=== PATIENT | female | born 1945 | race Caucasian/White ===

== ENCOUNTER 2017-07-27 16:06 | Observation (INO) | payer MEDICARE ==
[~2017-07-27] VITALS: Ht 152.4 cm; Wt 58.6 kg
[~2017-07-27 16:06] MED LIST: AMLODIPINE BESYL5 MG PO; BENADRYL25 M1 PO; CALCIUM + D 601 EAC1; CEFUROXIME500 MG PO; FISH OIL 1,0001 EAC1 PO; LOSARTAN POTASS50 MG PO; MACROBID 100 M100 MG PO; MULTIVITAMIN; NAPROXEN500 MG PO; PEPCID AC10 MG PO; PLAVIX75 MG PO; PROBIOTIC & AC1 EACH PO; TIZANIDINE HCL4 MG PO; TYLENOL EXTRA500 MG PO; Vit D PO; Z XANAX; ZANTAC150 MG PO
[2017-07-27] MEDS ORDERED: ASPIRIN 81 MG CHEW TAB PO ONE (16:30)
--- NOTE | 2017-07-27 17:58 | Diagnostic Imaging Report ---
Exam: Head CT without contrast History: Dizziness Comparison studies: CT brain from 01/19/2016 Technique: Axial images were obtained from the skull base to the vertex. Coronal and sagittal images reconstructed from the axial data. Intravenous contrast: None Findings: Scalp: Nonspecific unchanged punctate superficial radiopaque densities in left frontal scalp may represent calcification or debris.. Bones: No fractures, blastic or lytic lesions. Brain sulci: Mildly prominent. Ventricles: Mild compensatory dilatation. No hydrocephalus. Extra-axial spaces: No masses, no fluid collection. Parenchyma: Subtle hypodensities in the bilateral periventricular and subcortical white matter are small vessel ischemic changes. No masses, hemorrhage, acute or chronic vascular insults. Sellar/suprasellar region: No abnormalities. Craniocervical junction: Patent foramen magnum. No Chiari one malformation. Incidental findings: Mild carotid siphon atherosclerotic calcifications. IMPRESSION: 1. No acute intracranial abnormality. No change since CT brain from 01/19/2016. 2. Mild generalized age-related intracranial volume loss. 3. Mild chronic small vessel ischemic changes. Preliminary report was provided by neuroradiology fellow, Dr.Thach Lynn MD on 07/27/2017 5:57 PM. I have reviewed the study and agree with the findings in the preliminary report. Signed by: Dr. Tammi Flores M.D. on 07/27/2017 7:31 PM
--- NOTE | 2017-07-27 18:15 | Diagnostic Imaging Report ---
PROCEDURE: Frontal and lateral views of the chest. COMPARISON: DX, CHEST SINGLE (PORTABLE), 01/19/2016, 18:00. INDICATIONS: DIZZY, SYNCOPE FINDINGS: Lines/tubes: None. Lungs: 4 mm nodule projected on the right upper lobe. Left basilar subsegmental atelectasis. There is no evidence of pneumonia or pulmonary edema. Pleura: There is no pleural effusion or pneumothorax. Heart and mediastinum: The heart and the mediastinum are normal. Calcified right hilar lymph nodes. Bones: No acute bony abnormality. Mild spondylosis of the thoracic spine. IMPRESSION: 1. No acute thoracic abnormality. 2. 4 mm nodule in the right upper lobe may represent a granuloma. Toma Castillo M.D. Dictated by: Toma Castillo M.D. on 07/27/2017 at 18:23 Electronically approved by: Toma Castillo M.D. on 07/27/2017 at 18:23
[2017-07-27 18:49] LABS: BASOPHILS % 0.3 % (0.0-1.0); EOSINOPHILS % 0.3 % (0.0-6.0); HEMATOCRIT 41.4 % (34.2-44.1); HEMOGLOBIN 14.2 g/dL (12.0-16.0); LYMPHOCYTES # (AUTO) 1.8 (1.0-3.2); LYMPHOCYTES % 11.8 % (18.0-39.1); MEAN CORPUSCULAR HEMOGLOBIN 34.5 pg (28-32); MEAN CORPUSCULAR HGB CONC 34.3 g/dL (31-35); MEAN CORPUSCULAR VOLUME 100.7 fL (81-99); MONOCYTES # (AUTO) 1.4 (0.2-0.8); MONOCYTES % 9.2 % (4.4-11.3); NEUTROPHILS % 77.7 % (38.7-80.0); PLATELET COUNT 265 x10e3/uL (140-360); RED BLOOD COUNT 4.11 x10e6/uL (3.6-5.1); RED CELL DISTRIBUTION WIDTH 12.2 % (11.7-14.4)
[2017-07-27 18:50] LABS: BILIRUBIN,URINE NEGATIVE (NEGATIVE); KETONES,URINE NEGATIVE (NEGATIVE); LEUKOCYTE ESTERASE ,URINE TRACE (NEGATIVE); NITRITE,URINE NEGATIVE (NEGATIVE); PROTEIN,URINE DIPSTICK NEGATIVE (NEGATIVE); URINE UROBILINOGEN 0.2 mg/dL (0.2 - 1)
[2017-07-27 18:55] LABS: CLARITY,URINE SL CLOUDY (CLEAR); COLOR,URINE YELLOW (YELLOW)
[2017-07-27 18:57] LABS: INR 0.9; PROTHROMBIN TIME 12.6 seconds (11.9-14.5)
[2017-07-27 19:07] LABS: ALANINE AMINOTRANSFERASE 40 IU/L (0-55); ALBUMIN 4.1 g/dL (3.5-5.0); ALBUMIN/GLOBULIN RATIO 1.1 (0.8-2.0); ALKALINE PHOSPHATASE 70 IU/L (40-150); AMPHETAMINES SCREEN,URINE NEGATIVE (NEGATIVE); ANION GAP 16.5 mmol/L (8-16); BACTERIA,URINE FEW /HPF; BLOOD UREA NITROGEN 10 mg/dL (7-26); BUN/CREATININE RATIO 11 (6-25); CALCIUM 9.5 mg/dL (8.4-10.2); CARBON DIOXIDE 22 mmol/L (22-29); CHLORIDE 103 mmol/L (98-107); CREATINE KINASE 51 IU/L (29-168); EPITHELIAL CELLS,URINE FEW /LPF; EST GLOMERULAR FILTRATION RATE > 60 ML/MIN (60-); GLUCOSE 112 mg/dL (74-118); PHENCYCLIDINE SCREEN,URINE NEGATIVE (NEGATIVE); POTASSIUM 3.5 mmol/L (3.5-5.1); RBC,URINE 0-5 /HPF (0-5); SODIUM 138 mmol/L (136-145); WBC,URINE (MAN) 0-5 /HPF (0-5)
[2017-07-27 19:08] LABS: BENZODIAZEPINES SCREEN,URINE NEGATIVE (NEGATIVE)
[2017-07-27] MEDS ORDERED: SODIUM CHLORIDE 0.9% 1000ML 1,000 ML IV STA (19:57)
[2017-07-27] MEDS ORDERED: ONDANSETRON HCL INJ 2 MG/ML VIAL IV PRN (20:30)
[2017-07-27] MEDS: SODIUM CHLORIDE 0.9% 1000ML 1,000 ML IV SCH (20:44)
[2017-07-27] MEDS: FAMOTIDINE 20 MG/2 ML VIAL IV SCH (20:44)
[2017-07-27] MEDS ORDERED: CLONIDINE HCL 0.1 MG TAB PO PRN (21:00)
[2017-07-27 22:15] VITALS: BP 178/85
[2017-07-27 23:00] VITALS: BP 178/85
[2017-07-28] VITALS (8 sets, daily range): BP systolic 156–204; BP diastolic 68–92
[2017-07-28] MEDS: SODIUM CHLORIDE 0.9% 1000ML 1,000 ML IV SCH ×3 (01:54→20:30)
[2017-07-28] MEDS: ACETAMINOPHEN 325 MG TAB PO PRN ×3 (01:54→21:21)
[2017-07-28 02:45] LABS: CREATINE KINASE MB 2.1 ng/mL (0.00-5.00)
[2017-07-28 06:22] LABS: BASOPHILS % 0.4 % (0.0-1.0); EOSINOPHILS # (AUTO) 0.1 (0.0-0.4); EOSINOPHILS % 1.1 % (0.0-6.0); HEMATOCRIT 38.3 % (34.2-44.1); HEMOGLOBIN 12.9 g/dL (12.0-16.0); LYMPHOCYTES # (AUTO) 2.4 (1.0-3.2); LYMPHOCYTES % 29.6 % (18.0-39.1); MEAN CORPUSCULAR HEMOGLOBIN 34.3 pg (28-32); MEAN CORPUSCULAR HGB CONC 33.7 g/dL (31-35); MEAN CORPUSCULAR VOLUME 101.9 fL (81-99); MONOCYTES # (AUTO) 0.8 (0.2-0.8); MONOCYTES % 9.9 % (4.4-11.3); NEUTROPHILS # (AUTO) 4.8 (2.1-6.9); NEUTROPHILS % 58.6 % (38.7-80.0); PLATELET COUNT 238 x10e3/uL (140-360); RED BLOOD COUNT 3.76 x10e6/uL (3.6-5.1); RED CELL DISTRIBUTION WIDTH 12.4 % (11.7-14.4)
[2017-07-28] MEDS: METRONIDAZOLE 500 MG TAB PO SCH ×3 (06:45→21:20)
[2017-07-28 06:46] LABS: ALANINE AMINOTRANSFERASE 30 IU/L (0-55); ALBUMIN 3.4 g/dL (3.5-5.0); ALBUMIN/GLOBULIN RATIO 1.1 (0.8-2.0); ALKALINE PHOSPHATASE 55 IU/L (40-150); ANION GAP 12.6 mmol/L (8-16); BLOOD UREA NITROGEN 5 mg/dL (7-26); BUN/CREATININE RATIO 6 (6-25); CALCIUM 8.7 mg/dL (8.4-10.2); CARBON DIOXIDE 21 mmol/L (22-29); CHLORIDE 111 mmol/L (98-107); CHOL/HDL RATIO 3.5 (3.0-3.6); CHOLESTEROL 229 MD/DL (0-199); CREATININE, SERUM 0.77 mg/dL (0.57-1.11); EST GLOMERULAR FILTRATION RATE > 60 ML/MIN (60-); GLUCOSE 90 mg/dL (74-118); HDL CHOLESTEROL 66 MG/DL (40-60); LDL CHOLESTEROL 126 MG/DL (60-130); POTASSIUM 3.6 mmol/L (3.5-5.1); SODIUM 141 mmol/L (136-145); TRIGLYCERIDES 186 MG/DL (0-149)
[2017-07-28] MEDS ORDERED: NICOTINE PATCH1 EAC1 TD (07:37)
[2017-07-28] MEDS ORDERED: HYDRALAZINE HCL 20 MG/ML VIAL IV PRN (08:00)
[2017-07-28] MEDS: CLOPIDOGREL BISULFATE 75 MG TAB PO SCH (08:14)
[2017-07-28] MEDS: NICOTINE 21 MG/EA PATCH TOP SCH (08:14)
[2017-07-28] MEDS: FAMOTIDINE 20 MG/2 ML VIAL IV SCH ×2 (08:14→20:30)
--- NOTE | 2017-07-28 08:51 | Consultation ---
DATE OF CONSULTATION: July 28, 2017 CARDIOLOGY CONSULTATION REASON FOR CONSULTATION: Dizziness and syncope. HPI: This is a 71-year-old female that presented with dizziness and syncope. According to the patient, she has been having symptoms of near syncope, passing out and dizziness that has been out of control that she decided to come into the emergency room for evaluation. She had a history of CVA and TIA in the past. She also has a history of high blood pressure and anxiety. She denies any chest pain, any palpitation, any shortness of breath, or diaphoresis. Her troponin was negative. EKG showed normal sinus rhythm no S/T abnormalities. Brain CT was negative, but with mild chronic small vessel ischemic changes. PAST MEDICAL HISTORY: Hypertension, hep C, DE, TIA, CVA, hemochromatosis, colon polyps, depression, kidney stone, GERD, seizure. PAST SURGICAL HISTORY: Bladder suspension, appendectomy, D and C, and polyp removal. FAMILY HISTORY: Positive for colon polyps. SOCIAL HISTORY: She lives at home by herself. She quit smoking last year. MEDICATIONS: See med list. ALLERGIES: SHE HAS MULTIPLE ALLERGIES. SEE CHART. REVIEW OF SYSTEMS: Negative except those mentioned above. She is positive for diarrhea and syncope. PHYSICAL EXAMINATION VITAL SIGNS: Temperature 89, blood pressure 200/100, respirations 18, oxygen saturation 96% on room air. GENERAL: She is awake, alert and oriented times 3. HEENT: Mucous membrane moist. NECK: Supple. LUNGS: Bilateral clear to auscultation. CARDIOVASCULAR: S1 and S2 present. ABDOMEN: Soft. NEUROLOGICAL: Intact. She is able to move all extremities. EXTREMITIES: Bilateral lower extremities with no edema. LABS: Sodium 141, potassium 3.6, chloride 111, CO2 21, BUN 5, creatinine 0.77, glucose 90. White blood cell 8.1, hemoglobin 12.9, hematocrit 38.3, and platelets 238,000. PT 12.6, INR 0.90. IMPRESSION 1. Syncope. 2. Elevated blood pressure. 3. Anxiety. 4. Diarrhea. 5. History of cerebrovascular accident and transient ischemic attack. ASSESSMENT AND PLAN: Will resume home blood pressure medications. Check orthostatic BP. Get an echo to assess the LV and valve function. Will get bilateral carotid Doppler to rule out any occlusion. Further cardiac workup pending clinical course. Thank you for this consultation. DICTATED BY SANDRA CLOUD NP Job#: [id number] RI
[2017-07-28] MEDS ORDERED: NON-FORMULARY MEDICATION (Losartan Potassium 100 MG) PO SCH (09:00)
[2017-07-28] MEDS: LOSARTAN POTASSIUM 100 MG TAB PO SCH (09:06)
[2017-07-28 10:49] LABS: CREATINE KINASE MB 2.2 ng/mL (0.00-5.00)
[2017-07-28] MEDS: DIPHENHYDRAMINE HCL 25 MG CAP PO PRN ×2 (14:58→21:21)
[2017-07-28] MEDS ORDERED: DIPHENHYDRAMINE HCL 25 MG CAP PO PRN (15:00)
--- NOTE | 2017-07-28 18:03 | Diagnostic Imaging Report ---
EXAMINATION: MRI of the brain without contrast. HISTORY: Dizziness, syncope, hypertension, history of CVA/TIA in the past COMPARISON: Head CT on 07/27/2017 and brain MRI and 01/19/2016 TECHNIQUE: Sagittal T2; axial DWI, T2, FLAIR, T1-IR, T2 gradient echo; coronal FLAIR. IMAGE QUALITY: Adequate. FINDINGS: Parenchyma: 1. Unchanged few scatter and mildly confluent periventricular white matter T12. Hyperintense foci, most likely nonspecific chronic microvascular ischemic changes 2. No mass, hemorrhage, acute or chronic infarcts. Skull: Unremarkable. Vessels: Expected flow voids present in the major arteries and dural sinuses. Extra-axial spaces: No abnormal signal intensity or mass effect. Brain volume: Within normal limits for age. Ventricles: No hydrocephalus or displacement. Foramen magnum: Unremarkable. Sella: Unremarkable. Paranasal / mastoid sinuses: No significant inflammatory disease. IMPRESSION: 1. No acute infarcts. 2. Unchanged mild supratentorial white matter chronic microvascular ischemic changes. Signed by: Dr. Bryanna Rush M.D. on 07/28/2017 5:59 PM
--- NOTE | 2017-07-28 18:43 | Consultation ---
DATE OF CONSULTATION: July 28, 2017 NO DICTATION. Dictation interrupted. Please see subsequently dictated note. Job#: [id number] GH JOSE
[2017-07-28] MEDS ORDERED: ALPRAZOLAM 0.25 MG TAB PO PRN (19:00)
--- NOTE | 2017-07-28 19:50 | Consultation ---
DATE OF CONSULTATION: NEUROLOGY CONSULT HISTORY OF PRESENT ILLNESS: Ms. Bonilla is a 71-year-old right-hand dominant woman who presented to [facility] on the evening of July 27, 2017, after experiencing a syncopal event. According to the patient, she was speaking to her grandson at approximately 3:30 PM on July 27, 2017, when she experienced the sudden onset of dizziness, which she further describes as a vertiginous sensation. Concerned she was having "another TIA", the patient stood and walked to the kitchen for a piece of candy to increase her blood sugar. The patient then sat down at the kitchen table. While seated, the vertiginous sensation worsened. The patient also felt flushed and experienced nausea. While seated, Ms. Bonilla fell to her right side, unconscious. Her grandson, who witnessed the episode, reported the period of unconsciousness/unresponsiveness lasted for approximately 1 minute. There was no shaking or stiffening of the arms or legs. Ms. Bonilla does not endorse tongue biting or bladder or bowel incontinence. After approximately 1 minute, the patient regained consciousness. When she did regain consciousness, the patient was oriented to person, place and situation. As she regained consciousness, Ms. Bonilla continued to experience vertigo, a flushing sensation and nausea without vomiting. The patient states her speech may have been "a little slurred" as well. Her grandson notified EMS, and Ms. Bonilla was transported to the emergency center at [facility] for further evaluation and treatment. Ms. Bonilla does not endorse chest pain or tightness or shortness of breath prior to or during the episode as described above. She does endorse tachycardia. The patient endorses multiple life stressors as well. She reports multiple family members and friends have over the past several months. She has a daughter with a terminal lung disease who is "very close to dying". Upon arrival in the emergency center, the patient was noted to have a markedly elevated blood pressure. Per documentation of the emergency department note, the patient was found to be neurologically intact. While in the emergency room, an EKG was performed and revealed normal sinus rhythm at a rate of 95 beats per minute. There were findings on the EKG suggestive of right and left atrial enlargement. Ms. Bonilla underwent a CT of the brain without contrast in the emergency center as well. Those images are not available for review at this time. However, per the radiologist report, there is no evidence of acute stroke, hemorrhage, mass, or mass effect. Following her evaluation in the emergency center, Ms. Bonilla was admitted to [facility] for further evaluation and treatment of her symptoms. REVIEW OF SYSTEMS: The patient endorses an unintentional weight gain of 5-6 pounds over the last few months. She endorses changes in her vision, specifically blurred vision. She endorses dry mouth, fast heartbeat, dry cough, dyspnea on exertion, nausea, joint pain, pain in the neck, midback and low back. She endorses possible dysarthria, dizziness which is described as a vertiginous sensation, and a headache. The remainder of the 12-point review of systems was negative. 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 PAST SURGICAL HISTORY: D and C, bladder suspension and exploratory laparotomy. PRIOR HOSPITALIZATIONS: The patient reports being hospitalized for the above-mentioned surgeries, multiple prior TIAs, and myocardial infarction. FAMILY HISTORY: The patient's paternal grandfather is from a myocardial infarction. Her paternal grandmother is from heart disease. Ms. Bonilla's maternal grandfather is from a myocardial infarction as well. The patient's maternal grandmother is from old age. Ms. Bonilla's father is . He had high blood pressure, arthritis and squamous cell carcinoma. The patient's mother is as well. She had COPD and CHF. Ms. Bonilla has a brother who is . Cause of was suicide. The brother did have a history of hypertension and alcoholism. Ms. Bonilla has 3 daughters. One daughter, as mentioned in the history of present illness, has a terminal lung disease. A 2nd daughter has a history of squamous cell carcinoma and a brain tumor (probably benign). SOCIAL HISTORY: The patient quit school in the 10th grade. She is now retired. 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 Ms. Bonilla is . The patient endorses a 50+ pack year history of tobacco use. However, she quit smoking on July 10, 2017. The patient acknowledges a previous history of heavy alcohol use. Currently, she drinks no more than 3 alcoholic beverages per day. The patient does acknowledge remote use of acid, marijuana and methamphetamine. MEDICATIONS 1. Losartan 100 mg by mouth daily. 2. Plavix 75 mg by mouth daily. 3. Protonix daily. 4. Tylenol 500 mg by mouth every 4 hours as needed for pain. 5. Fish Oil supplement by mouth daily. 6. Vitamin D supplement by mouth daily. 7. Benadryl 25 mg by mouth daily. ALLERGIES: PENICILLIN, CIPROFLOXACIN, CODEINE, LEVOFLOXACIN, NITROFURANTOIN, SULFAMETHOXAZOLE, AND TRIMETHOPRIM. THERE ARE NO KNOWN FOOD ALLERGIES. MS. BONILLA DOES ACKNOWLEDGE A LATEX ALLERGY. SHE IS NOT ALLERGIC TO CONTRAST MATERIAL. PHYSICAL EXAMINATION VITAL SIGNS: Height 5 feet, weight 130 pounds, BMI 25.39. Blood pressure 172/88 mmHg, pulse 87 beats per minute, respiratory rate 16 breaths per minute, oxygen saturation is 96% on room air. The patient is afebrile. GENERAL: The patient is awake and alert. Does not appear distressed. HEENT: Normocephalic and atraumatic. Pupils equal, round and reactive to light. Moist mucous membranes. NECK: Supple. No appreciable thyromegaly. No appreciable carotid bruits. CARDIOVASCULAR: S1 and S2. Regular rate and rhythm. No murmurs, rubs or gallops. RESPIRATORY: Clear to auscultation bilaterally. No wheezes, rhonchi or rales. EXTREMITIES: No clubbing, cyanosis or edema. The posterior tibial and dorsalis pedis pulses are 2+ and symmetric. SKIN: Warm and dry. No rashes or lesions. NEUROLOGIC: Memory/attention: The patient is awake and alert. Oriented to person, place, time, and situation. CRANIAL NERVES: Cranial nerve I: Not tested. Cranial nerve II, III, IV, and : Pupils are equal and round. React briskly to light (from 4 mm to 2 mm). Extraocular movements are intact. No nystagmus. Cranial nerve V: Sensation to light touch and pinprick is intact in the bilateral V1-V3 distributions. Strength of the temporalis and masseter muscles is within normal limits. Cranial nerve VII: The face is symmetric as are all facial movements. Strength is within normal limits. Cranial nerve VIII: Hearing is intact to finger tub bilaterally. Cranial nerve IX and X: The soft palate elevates equally and symmetrically. Cranial nerve XI: Normal strength of the bilateral sternocleidomastoid and trapezius muscles. Cranial nerve XII: The tongue protrudes midline and moves symmetrically from [id number]. STRENGTH: Bulk is normal and strength is 5/5 in the bilateral deltoids, biceps, triceps, wrist flexors, and extensors, finger flexors and extensors, intrinsic hand muscles, hip flexors, knee flexors and extensors, ankle dorsiflexion and plantar flexion, and intrinsic foot muscles. Tone is normal. DTRS: Deep tendon reflexes are 2+ and symmetric at the triceps, biceps, brachioradialis, and patellas. The Achilles reflexes are diminished bilaterally. Plantar responses are flexor bilaterally. Absent clonus. SENSATION: Intact to light touch and pinprick in both arms and both legs. CEREBELLAR: Kyytqg-[id number]-vhcqnx and heel-sarkar movements are intact without dysmetria or other impairment. Rapid alternating movements are intact. GAIT: Deferred as the patient is at risk for falls. SPEECH: Spontaneous speech is normal without appreciable dysarthria or aphasia. Repetition is intact. INVOLUNTARY MOVEMENTS: None. PRONATOR DRIFT: None. LABORATORY DATA: Sodium 141, potassium 3.6, chloride 111, carbon dioxide 21, anion gap 12.6, BUN 5, creatinine 0.77. Estimated GFR greater than 60. BUN and creatinine ratio 6. Glucose 90. Calcium 8.7. Total bilirubin 0.4, AST 22, ALT 30, alkaline phosphatase 55. Creatinine kinase 51, 53, 54. CK-MB 2.1, 2.1, 2.2. Troponin I 0.017, 0.011, 0.01. Total protein 6.5, albumin 3.4, globulin 3.1, albumin to globulin ratio 1.1. Total cholesterol 229, triglycerides 186, LDL 126, HDL 66. White blood cell count is 8.1 with a normal differential. Hemoglobin is 12.9, hematocrit 38.3, and platelet count is 238,000. PT is 12.6. INR is 0.9. Urinalysis reveals trace blood and trace leukocyte esterase without significant white blood cells. Toxicology screen is negative. DIAGNOSTIC STUDIES: CT of the brain without contrast on July 27, 2017, images are not available for my review at this time. Per the final report, there is no acute intracranial abnormality. There are no changes since the CT of the brain performed on January 19, 2016. There is mild generalized age-related intracranial volume loss. There is mild chronic small vessel ischemic changes. Echocardiogram on July 28, 2017, the preliminary result indicates normal left ventricular systolic function with an ejection fraction of 55% to 60%. There is mild tricuspid regurgitation. Otherwise, there are no significant valvular abnormalities. There is no evidence of pericardial effusion. Bilateral carotid artery ultrasound with Doppler on July 28, 2017, preliminary reports indicates evidence of carotid disease at the right carotid bulb bifurcation and proximal internal carotid artery. It is possible there is significant carotid stenosis of the right internal carotid artery and external carotid artery as evidenced by mild tortuosity of the vessels. There is carotid disease at the left carotid bulb bifurcation and proximal internal carotid artery. There is possible significant carotid stenosis of the left external carotid artery. There is antegrade flow in the bilateral vertebral arteries. Electrocardiogram on July 27, 2017, normal sinus rhythm at 95 beats per minute. No evidence of acute myocardial infarction. ASSESSMENT AND PLAN: Ms. Bonilla is a 71-year-old right-hand dominant woman with multiple vascular risk factors, who presented to [facility] on July 27, 2017, status post a single syncopal episode with headache, vertigo, blurred vision, possible dysarthria, and nausea without vomiting. Ms. Bonilla continues to endorse vertigo, headache and blurred vision. She does report these symptoms seem to improve with antihypertensive medication. The patient's neurological examination is nonfocal. Her laboratory data and diagnostic studies have been reviewed and are documented above. There is a relatively wide differential diagnosis for Ms. Bonilla. I strongly suspect her symptoms are due to cardiovascular disease rather than neurological disease. Hypertensive emergency and/or carotid artery stenosis resulting in insufficient blood flow to the brain could present with a combination of headache, blurred vision, nausea, speech deficits, and syncope. Since the syncopal episode did occur after the patient moved from a sitting to a standing and then back to a sitting position, vasovagal syncope is another possible cause of her symptoms. Neurological diagnoses under consideration include transient ischemic attack, posterior circulation stroke, or recrudescence of prior deficits due to poorly controlled hypertension. A possible, though far less likely, diagnosis is generalized seizure. RECOMMENDATIONS: Are as follows: 1. MRI of the brain without contrast. 2. CTA of the brain and neck. 3. Routine EEG. 4. Echocardiogram and bilateral carotid artery ultrasound have been performed. Follow up on the final reports. 5. Continue Plavix 75 mg by mouth daily for vascular prophylaxis. 6. Allow permissive hypertension pending the results of the above diagnostic studies. 7. The patient does have an elevated cholesterol, especially for someone who has been diagnosed with multiple prior transient ischemic attacks. I would recommend prescribing a statin for this patient to lower her total cholesterol to less than 200, and her LDL cholesterol to approximately 70. My recommendation would be to start atorvastatin 20 or 40 mg by mouth daily. 8. Prior tobacco use. As discussed in the patient's social history, she does have a 50+ pack year of tobacco use. She did stop smoking on July 10, 2017. The patient currently has a nicotine patch prescribed while she is in the hospital. 9. GI prophylaxis. The patient is receiving Pepcid 20 mg IV q.12 h. 10. DVT prophylaxis. The patient is ambulatory. Chemical prophylaxis is not necessary at this time. Thank you for this consultation. I will continue to follow the patient with you while she remains in the hospital. Time spent 70 minutes. Job#: [id number] FE GARCIA
--- NOTE | 2017-07-28 20:25 | Diagnostic Imaging Report ---
EXAMINATION: CT angio of the neck and head with contrast. HISTORY:Syncope, headache and dizziness, possible TIA. COMPARISON:MRA head and neck from 01/19/2016, CT brain from 07/27/2017 and MRI brain from 07/28/2017. TECHNIQUE: Multidetector helical axial images were acquired through the neck and head during infusion of iodinated contrast material. Images were reviewed in multiplanar and 3-dimensional format. Contrast: 100 mL of Isovue-370 . FINDINGS: NECK: If carotid bulb stenosis is present, stenosis is measured with respect to the distal extracranial internal carotid artery by NASCET criteria. Aortic arch and major vessels: Few scattered atherosclerotic calcification in the aortic arch. Nonstenotic hard atherosclerotic plaque at the origin of left subclavian artery. Common carotid arteries: Patent Cervical carotid bifurcations: Right: Nonstenotic hard atherosclerotic plaque in right carotid bulb. Left :Patent. Internal carotid arteries: Right: Mixed atherosclerotic plaque in proximal cervical segment of right internal carotid artery results in approximately 20% vascular stenosis. Left: Nonstenotic focal hard atherosclerotic plaque in proximal cervical segment of left internal carotid artery Vertebral arteries: Patent. HEAD: Internal carotid arteries: Mild atherosclerotic plaque in bilateral carotid siphon. Anterior cerebral arteries: Patent A1 segments.. Middle cerebral arteries: Patent M1 segments.. Vertebral arteries: Patent. Basilar artery: Patent. Posterior cerebral arteries: Patent. Anatomical variants: Anterior communicating artery :Present Posterior communicating arteries: Not visualized on right, patent on left. Vertebral arteries: Codominant. Incidental findings: Cervical spine: C5-C6: Moderate right foraminal stenosis due to facet and uncovertebral arthrosis. C6-C7: Moderate degenerative disc disease. Posterior disc osteophyte complex without canal stenosis. Bilateral severe foraminal stenosis due to facet and uncovertebral arthrosis. IMPRESSION: 1. Scattered nonstenotic atherosclerotic plaque particularly in the aortic arch, origin of left subclavian artery, right carotid bulb and proximal left internal carotid artery. 2. Mixed atherosclerotic plaque in proximal right internal carotid artery results in approximately 20% vascular stenosis. 3. Mild atherosclerotic plaque in bilateral carotid siphon. Signed by: Dr. Tammi Flores M.D. on 07/28/2017 8:22 PM
[2017-07-28] MEDS ORDERED: SODIUM CHLORIDE 0.9% 50ML 100 ML ONE (22:09)
[2017-07-28] MEDS ORDERED: IOPAMIDOL 370 MG/ML 200 ML INFUS..BTL INJ ONE (22:10)
[2017-07-29] VITALS: BP 183/85
[2017-07-29 04:00] VITALS: BP 141/70
[2017-07-29] MEDS: SODIUM CHLORIDE 0.9% 1000ML 1,000 ML IV SCH (04:52)
[2017-07-29] MEDS: METRONIDAZOLE 500 MG TAB PO SCH (04:56)
[2017-07-29] MEDS: FAMOTIDINE 20 MG/2 ML VIAL IV SCH (04:57)
[2017-07-29 07:49] VITALS: BP 170/87
[2017-07-29 08:00] VITALS: BP_SYST 158; BP_SYST 170; BP_DIAS 80; BP_DIAS 87
[2017-07-29] MEDS: ACETAMINOPHEN 325 MG TAB PO PRN (08:37)
[2017-07-29] MEDS: NICOTINE 21 MG/EA PATCH TOP SCH (08:37)
[2017-07-29] MEDS: CLOPIDOGREL BISULFATE 75 MG TAB PO SCH (08:37)
[2017-07-29] MEDS: LOSARTAN POTASSIUM 100 MG TAB PO SCH (08:37)
[2017-07-29] MEDS ORDERED: NICOTINE 14 MG/EA PATCH TOP SCH (09:00)
== END 2017-07-29 11:10 | disposition home or self-care (01) ==
LOC: ER 16:06 → ERHOLD 21:20 → MED/SURG2 21:27
PROVIDERS: ADMIT Internal Medicine; ATTEND Internal Medicine
DX: R55 Syncope and collapse (principal); R51 Headache; R42 Dizziness and giddiness; F41.9 Anxiety disorder, unspecified; R19.7 Diarrhea, unspecified; E86.0 Dehydration; I10 Essential (primary) hypertension; I25.10 Atherosclerotic heart disease of native coronary artery without angina pectoris; I07.1 Rheumatic tricuspid insufficiency; I34.0 Nonrheumatic mitral (valve) insufficiency; I25.2 Old myocardial infarction; R00.0 Tachycardia, unspecified; H53.8 Other visual disturbances; I65.29 Occlusion and stenosis of unspecified carotid artery; R56.9 Unspecified convulsions; Z79.02 Long term (current) use of antithrombotics/antiplatelets; Z86.73 Personal history of transient ischemic attack (TIA), and cerebral infarction without residual deficits; Z86.19 Personal history of other infectious and parasitic diseases; Z87.891 Personal history of nicotine dependence; Z82.49 Family history of ischemic heart disease and other diseases of the circulatory system; Z82.5 Family history of asthma and other chronic lower respiratory diseases
CPT/HCPCS: 36415 ×2; 70450; 70496; 70498; 70551; 71046; 80053 ×2; 80061; 80307; 81001; 82550 ×2; 82553 ×2; 84484 ×2; 85025 ×2; 85610; 87086; 87493; 93005; 93306; 93880; 95812; 97139; 99284; G0378 ×3; J0360; J7030 ×3; Q9967

== ENCOUNTER 2018-01-08 16:02 | Observation (INO) | payer MEDICARE ==
[~2018-01-08] VITALS: Ht 152.4 cm; Wt 56.7 kg
[~2018-01-08 16:02] MED LIST changes: +NICOTINE PATCH1 EAC1 TD
[2018-01-08] MEDS ORDERED: SODIUM CHLORIDE 0.9% 1000ML 1,000 ML IV STA (16:48)
[2018-01-08 17:16] LABS: BASOPHILS # (AUTO) 0.1 (0.0-0.1); BASOPHILS % 0.6 % (0.0-1.0); EOSINOPHILS # (AUTO) 0.1 (0.0-0.4); EOSINOPHILS % 1.3 % (0.0-6.0); HEMATOCRIT 37.5 % (34.2-44.1); LYMPHOCYTES % 34.5 % (18.0-39.1); MEAN CORPUSCULAR HEMOGLOBIN 33.9 pg (28-32); MEAN CORPUSCULAR HGB CONC 34.7 g/dL (31-35); MEAN CORPUSCULAR VOLUME 97.9 fL (81-99); MONOCYTES # (AUTO) 0.7 (0.2-0.8); MONOCYTES % 8.3 % (4.4-11.3); NEUTROPHILS # (AUTO) 4.9 (2.1-6.9); NEUTROPHILS % 55.1 % (38.7-80.0); PLATELET COUNT 301 x10e3/uL (140-360); RED BLOOD COUNT 3.83 x10e6/uL (3.6-5.1); RED CELL DISTRIBUTION WIDTH 12.4 % (11.7-14.4)
[2018-01-08 17:27] LABS: INR 1.07; PROTHROMBIN TIME 13.1 seconds (11.9-14.5)
[2018-01-08 17:28] LABS: PARTIAL THROMBOPLASTIN TIME 25.2 seconds (23.8-35.5)
--- NOTE | 2018-01-08 17:29 | Diagnostic Imaging Report ---
PROCEDURE: A single AP view of the chest. COMPARISON: 07/27/17 INDICATIONS: SYNCOPAL EPISODE FINDINGS: Lines/tubes: None. Lungs: The lungs are well inflated and clear. There is no evidence of pneumonia or pulmonary edema. Unchanged right upper lung field nodular density, likely a calcified granuloma. Pleura: There is no significant pleural effusion or pneumothorax. Heart and mediastinum: The heart and the mediastinum are unremarkable. Bones: No acute bony abnormality. IMPRESSION: 1. No acute cardiopulmonary disease. Dictated by: Anton Hernandes M.D. on 01/08/2018 at 17:33 Electronically approved by: Anton Hernandes M.D. on 01/08/2018 at 17:33
[2018-01-08 17:38] LABS: ALANINE AMINOTRANSFERASE 36 IU/L (0-55); ALBUMIN 4.1 g/dL (3.5-5.0); ALBUMIN/GLOBULIN RATIO 1.2 (0.8-2.0); ALKALINE PHOSPHATASE 66 IU/L (40-150); ANION GAP 16.5 mmol/L (8-16); BLOOD UREA NITROGEN 9 mg/dL (7-26); BUN/CREATININE RATIO 9 (6-25); CALCIUM 9.7 mg/dL (8.4-10.2); CARBON DIOXIDE 21 mmol/L (22-29); CHLORIDE 103 mmol/L (98-107); CREATINE KINASE 47 IU/L (29-168); CREATININE, SERUM 0.95 mg/dL (0.57-1.11); EST GLOMERULAR FILTRATION RATE 58 ML/MIN (60-); GLUCOSE 116 mg/dL (74-118); POTASSIUM 3.5 mmol/L (3.5-5.1); SODIUM 137 mmol/L (136-145)
--- NOTE | 2018-01-08 18:16 | Diagnostic Imaging Report ---
EXAMINATION: Head CT HISTORY: Syncope, dizziness, nausea COMPARISON: Head CT on 07/27/2017 brain MRI on 07/28/2017 TECHNIQUE: Multidetector axial images were obtained without contrast from the foramen magnum to the vertex . The images were reconstructed using brain and bone algorithms. Thin section brain images were reformatted into coronal and sagittal planes. Intravenous contrast: None. Motion/streaking artifact limits the evaluation of the skull base and posterior cranial fossa. FINDINGS: Parenchyma: 1. Persistent mild white matter chronic microvascular ischemic changes, slightly more prominent in the bilateral anterior frontal subcortical white matter. 2. No mass or hemorrhage. No CT evidence of acute territorial vascular insult. Extra-axial spaces:No abnormal density. No extra-axial fluid collections Brain volume: Normal for age. Ventricles: No hydrocephalus or displacement. Arteries: No density suggestive of thrombus. Dural sinuses: No abnormal density. Extra-axial spaces: No abnormal density. Foramen magnum: No mass, Chiari malformation, or basilar invagination. Sella: No obvious mass. Paranasal/mastoid sinuses: Imaged portions unremarkable. Skull/Scalp: No lytic or blastic lesions. No fractures. IMPRESSION: 1. No acute intracranial abnormalities. 2. Unchanged mild chronic microvascular ischemic changes compared to head CT on 07/27/2017. Signed by: Dr. Bryanna Rush M.D. on 01/08/2018 6:13 PM
[2018-01-08] MEDS ORDERED: ACETAMINOPHEN 325 MG TAB PO ONE (18:30)
[2018-01-08] MEDS ORDERED: MORPHINE SULFATE 2 MG/ML SYR IV PRN (19:00)
[2018-01-08] MEDS ORDERED: ONDANSETRON HCL INJ 2 MG/ML VIAL IV PRN (19:00)
[2018-01-08 22:00] VITALS: BP 166/81
[2018-01-08] MEDS: SODIUM CHLORIDE 0.9% 1000ML 1,000 ML IV SCH (22:19)
[2018-01-08 23:06] VITALS: BP 166/81
[2018-01-08 23:16] VITALS: BP 166/81
[2018-01-09] VITALS (11 sets, daily range): BP systolic 134–227; BP diastolic 73–103
[2018-01-09] MEDS ORDERED: CLONIDINE HCL 0.2 MG TAB PO ONE (01:15)
[2018-01-09 01:24] LABS: CREATINE KINASE 69 IU/L (29-168)
[2018-01-09 06:56] LABS: BASOPHILS % 0.4 % (0.0-1.0); EOSINOPHILS # (AUTO) 0.1 (0.0-0.4); EOSINOPHILS % 1.6 % (0.0-6.0); HEMATOCRIT 34.3 % (34.2-44.1); HEMOGLOBIN 11.6 g/dL (12.0-16.0); LYMPHOCYTES # (AUTO) 2.3 (1.0-3.2); LYMPHOCYTES % 31.4 % (18.0-39.1); MEAN CORPUSCULAR HEMOGLOBIN 33.9 pg (28-32); MEAN CORPUSCULAR HGB CONC 33.8 g/dL (31-35); MEAN CORPUSCULAR VOLUME 100.3 fL (81-99); MONOCYTES # (AUTO) 0.8 (0.2-0.8); MONOCYTES % 10.5 % (4.4-11.3); NEUTROPHILS # (AUTO) 4.1 (2.1-6.9); NEUTROPHILS % 55.8 % (38.7-80.0); PLATELET COUNT 251 x10e3/uL (140-360); RED BLOOD COUNT 3.42 x10e6/uL (3.6-5.1); RED CELL DISTRIBUTION WIDTH 12.6 % (11.7-14.4)
[2018-01-09 07:30] LABS: ALANINE AMINOTRANSFERASE 26 IU/L (0-55); ALBUMIN 3.4 g/dL (3.5-5.0); ALBUMIN/GLOBULIN RATIO 1.2 (0.8-2.0); ALKALINE PHOSPHATASE 57 IU/L (40-150); ANION GAP 10.1 mmol/L (8-16); BLOOD UREA NITROGEN 8 mg/dL (7-26); BUN/CREATININE RATIO 10 (6-25); CARBON DIOXIDE 26 mmol/L (22-29); CHLORIDE 108 mmol/L (98-107); EST GLOMERULAR FILTRATION RATE > 60 ML/MIN (60-); GLUCOSE 104 mg/dL (74-118); POTASSIUM 4.1 mmol/L (3.5-5.1); SODIUM 140 mmol/L (136-145)
[2018-01-09 07:46] LABS: CREATINE KINASE 60 IU/L (29-168)
[2018-01-09] MEDS: CLOPIDOGREL BISULFATE 75 MG TAB PO SCH (09:00)
[2018-01-09] MEDS: LOSARTAN POTASSIUM 100 MG TAB PO SCH (09:00)
--- NOTE | 2018-01-09 10:08 | Consultation ---
DATE OF CONSULTATION: REASON FOR CONSULTATION: Syncope. HISTORY OF PRESENT ILLNESS: Ms. Bonilla is a 72-year-old lady with a past medical history as listed below. Reportedly, was sitting in a chair and eating. Her daughter was with her. Daughter stepped out to go to the bathroom when she suddenly passed out. Her daughter found her in a chair and laid her to the ground. She thinks she lost consciousness for a few minutes. Denies any chest pain, shortness of breath or palpitations. She reportedly was dizzy before passing out. She has been having some diarrhea for the last 3 days. She has had TIAs in the past. REVIEW OF SYSTEMS CONSTITUTIONAL: Has fatigue and weakness. HEENT: No headache, blurring of vision or seizures. Had a syncopal episode. CARDIOVASCULAR: No chest pain, dyspnea, orthopnea, PND. RESPIRATORY: No cough, fever or expectoration. GI: No abdominal pain, vomiting or diarrhea. : No dysuria, frequency, incontinence. ALLERGIES: PENICILLIN, SULFA AND CODEINE. MEDICATIONS: See list. PAST MEDICAL HISTORY: History of hypertension, history of TIA, history of hepatitis, history of hemochromatosis, history of syncope in the past. PAST SURGICAL HISTORY: History of bladder suspension, history of appendectomy. SOCIAL HISTORY: He quit smoking in July. Smoked since the age of 14. Does not drink alcohol. FAMILY HISTORY: Noncontributory. PHYSICAL EXAMINATION GENERAL: Moderately built and nourished lady alert and oriented, and not in any obvious distress. VITALS: Heart rate 72, blood pressure 134/73, respiratory rate 18, temperature 96.7. HEENT: Atraumatic. NECK: No JVD, bruit, thyromegaly, or lymphadenopathy. CARDIOVASCULAR: First and 2nd heart sounds heard. No murmurs, rubs or gallops appreciated. CHEST: Clear to auscultation. ABDOMEN: Soft and nontender. EXTREMITIES: No edema. LABS: Sodium is 137, potassium is 3.5, chloride 103, bicarb 21, BUN is 9, creatinine 0.9, glucose 116. Hemoglobin 11.6, hematocrit 34.3, and platelets 251,000. White count is 7.3. Total bili 0.3, AST 28, ALT 36, alk phos 66. EKG shows sinus tach at 100 beats per minute. Normal axis and normal intervals. Nonspecific ST-T changes. Chest x-ray with no acute disease. IMPRESSION AND PLAN 1. Syncope. 2. History of hypertension. 3. History of transient ischemic attack. 4. History of hepatitis C. 5. History of hemochromatosis. PLAN 1. The syncopal episode could be related to dehydration. Patient apparently was having diarrhea for the last few days. 2. She had a carotid Doppler in July of this year that showed no significant stenosis of internal common carotid arteries. She reportedly had echocardiogram too and reviewed that. 3. CT of head shows no acute intracranial abnormalities, mild chronic microvascular ischemic changes compared to July of 2017. 4. Replace potassium. 5. Due to recurrent episodes of syncope, discussed with the patient about possible implantable loop recorder. She does not want it. She would rather prefer getting monitored as outpatient. Further cardiac workup depending on clinical course. I have discussed my impression and plan with the patient. She understands. As always, I appreciate and thank you very much for the referral. Job#: [id number] FE
[2018-01-09] MEDS: SODIUM CHLORIDE 0.9% 1000ML 1,000 ML IV SCH ×4 (10:40→17:12)
[2018-01-09] MEDS: ACETAMINOPHEN 325 MG TAB PO PRN ×2 (10:41→18:21)
[2018-01-09] MEDS: CLONIDINE HCL 0.1 MG TAB PO PRN ×2 (13:15→21:17)
[2018-01-10 00:33] VITALS: BP 175/77
[2018-01-10] MEDS: ACETAMINOPHEN 325 MG TAB PO PRN (05:16)
[2018-01-10 05:52] VITALS: BP 140/65
[2018-01-10] MEDS: SODIUM CHLORIDE 0.9% 1000ML 1,000 ML IV SCH (06:44)
[2018-01-10 07:15] VITALS: BP 164/78
[2018-01-10] MEDS ORDERED: PANTOPRAZOLE SOD 40 MG TABEC PO SCH (07:30)
[2018-01-10 07:31] VITALS: BP 164/78
[2018-01-10] MEDS: LOSARTAN POTASSIUM 100 MG TAB PO SCH (09:09)
[2018-01-10] MEDS: CLOPIDOGREL BISULFATE 75 MG TAB PO SCH (09:09)
[2018-01-12] MEDS ORDERED: CLONIDINE HCL0.1 MG PO (11:19)
[2018-01-12] MEDS ORDERED: PANTOPRAZOLE SO40 MG PO (11:19)
[2018-01-12] MEDS ORDERED: DILTIAZEM HCL60 MG PO (11:19)
== END 2018-01-10 10:02 | disposition home or self-care (01) ==
LOC: ER 16:02 → ERHOLD 19:30 → MED/SURG3 21:13
PROVIDERS: ADMIT Internal Medicine; ATTEND Internal Medicine
DX: G45.9 Transient cerebral ischemic attack, unspecified (principal); I10 Essential (primary) hypertension; D64.9 Anemia, unspecified; R19.7 Diarrhea, unspecified; Z87.891 Personal history of nicotine dependence; Z79.02 Long term (current) use of antithrombotics/antiplatelets; Z79.82 Long term (current) use of aspirin; Z88.5 Allergy status to narcotic agent; Z88.0 Allergy status to penicillin; Z88.2 Allergy status to sulfonamides; Z88.8 Allergy status to other drugs, medicaments and biological substances; Z88.1 Allergy status to other antibiotic agents; Z91.040 Latex allergy status
CPT/HCPCS: 36415 ×2; 70450; 71045; 80053 ×2; 82550 ×2; 82553 ×2; 84484 ×2; 85025 ×2; 85610; 85730; 93005 ×2; 96361 ×2; 97139; 99284; G0378 ×3; J2405; J7030 ×3; S0164

== ENCOUNTER → 2018-06-20 | Day surgery (SDC) | payer MEDICARE ==
[2018-06-19 13:14] LABS: BASOPHILS % 0.1 % (0.0-1.0); EOSINOPHILS % 0.3 % (0.0-6.0); HEMATOCRIT 40.2 % (34.2-44.1); HEMOGLOBIN 13.9 g/dL (12.0-16.0); LYMPHOCYTES % 17.6 % (18.0-39.1); MEAN CORPUSCULAR HEMOGLOBIN 33.5 pg (28-32); MEAN CORPUSCULAR HGB CONC 34.6 g/dL (31-35); MEAN CORPUSCULAR VOLUME 96.9 fL (81-99); MONOCYTES # (AUTO) 1.3 (0.2-0.8); MONOCYTES % 11.4 % (4.4-11.3); NEUTROPHILS % 70.2 % (38.7-80.0); PLATELET COUNT 360 x10e3/uL (140-360); RED BLOOD COUNT 4.15 x10e6/uL (3.6-5.1); RED CELL DISTRIBUTION WIDTH 12.6 % (11.7-14.4)
[2018-06-19 13:25] LABS: INR 0.87; PROTHROMBIN TIME 12.7 seconds (11.9-14.5)
[2018-06-19 13:33] LABS: BLOOD UREA NITROGEN 17 mg/dL (7-26); BUN/CREATININE RATIO 19 (6-25); CALCIUM 9.7 mg/dL (8.4-10.2); CARBON DIOXIDE 23 mmol/L (22-29); CHLORIDE 102 mmol/L (98-107); EST GLOMERULAR FILTRATION RATE > 60 ML/MIN (60-); GLUCOSE 99 mg/dL (74-118); SODIUM 137 mmol/L (136-145)
[~2018-06-20] VITALS: Ht 152.4 cm; Wt 57.6 kg
[~2018-06-20] MED LIST changes: +ATIVAN1 MG PO; +CARTIA XT240 MG PO; +CLONIDINE HCL0.1 MG PO; +DILTIAZEM ER180 M1; +DILTIAZEM ER240 MG PO; +DILTIAZEM HCL60 MG PO; +HYDRALAZINE HCL25 MG PO; +LIDOCAINE HCL 2% LOCAL 20 ML VIAL ONE; +PANTOPRAZOLE SO40 MG PO
[2018-06-20 08:15] VITALS: BP 174/85
[2018-06-20 08:45] VITALS: BP 152/87
[2018-06-20 09:00] VITALS: BP 154/85
[2018-06-20 09:15] VITALS: BP 145/88
--- NOTE | 2018-06-20 09:25 | Operative Report ---
DATE OF PROCEDURE: PROCEDURE: Implantable loop recorder explantation. INDICATION: Patient requests. DESCRIPTION OF PROCEDURE: After informed consent, patient was placed on the bed. The left upper chest was painted and draped in a sterile fashion. Lidocaine was injected to the left upper chest for local anesthesia. An incision was made with #11 blade. The subcutaneous tissue was dissected by blunt dissection. The implantable loop recorder was captured using a forceps and removed from the pocket. The subcutaneous tissue was closed using 3-0 Vicryl. The skin was closed using Dermabond glue. The area was dressed in a sterile fashion. The patient tolerated the procedure without any complications. Job#: [id number]
[2018-06-20 09:30] VITALS: BP 140/82
[2018-06-20 09:45] VITALS: BP 141/80
== END | disposition home or self-care (01) ==
LOC: CATH LAB 11:20
DX: Z45.09 Encounter for adjustment and management of other cardiac device (principal); I10 Essential (primary) hypertension; R55 Syncope and collapse; F41.9 Anxiety disorder, unspecified; I25.2 Old myocardial infarction; Z88.6 Allergy status to analgesic agent; Z88.1 Allergy status to other antibiotic agents; Z88.0 Allergy status to penicillin; Z79.02 Long term (current) use of antithrombotics/antiplatelets; Z86.19 Personal history of other infectious and parasitic diseases; Z86.73 Personal history of transient ischemic attack (TIA), and cerebral infarction without residual deficits; Z82.49 Family history of ischemic heart disease and other diseases of the circulatory system
CPT/HCPCS: 33284; 36415; 80048; 85025; 85610; J2001

== ENCOUNTER 2019-01-29 19:55 | Emergency (ER) | payer MEDICARE ==
[~2019-01-29] VITALS: Ht 152.4 cm; Wt 57.6 kg
[~2019-01-29 19:55] MED LIST changes: -LIDOCAINE HCL 2% LOCAL 20 ML VIAL ONE
[2019-01-29 20:42] LABS: BASOPHILS # (AUTO) 0.1 (0.0-0.1); BASOPHILS % 0.5 % (0.0-1.0); EOSINOPHILS # (AUTO) 0.1 (0.0-0.4); EOSINOPHILS % 0.7 % (0.0-6.0); HEMATOCRIT 39.2 % (34.2-44.1); HEMOGLOBIN 13.4 g/dL (12.0-16.0); LYMPHOCYTES % 18.5 % (18.0-39.1); MEAN CORPUSCULAR HEMOGLOBIN 33.2 pg (28-32); MEAN CORPUSCULAR HGB CONC 34.2 g/dL (31-35); MONOCYTES % 9.4 % (4.4-11.3); NEUTROPHILS # (AUTO) 7.6 (2.1-6.9); NEUTROPHILS % 70.4 % (38.7-80.0); PLATELET COUNT 295 x10e3/uL (140-360); RED BLOOD COUNT 4.04 x10e6/uL (3.6-5.1); RED CELL DISTRIBUTION WIDTH 12.3 % (11.7-14.4)
[2019-01-29 20:45] LABS: INR 0.91; PROTHROMBIN TIME 12.7 seconds (11.9-14.5)
[2019-01-29 20:46] LABS: PARTIAL THROMBOPLASTIN TIME 23.5 seconds (23.8-35.5)
[2019-01-29 20:51] LABS: ALANINE AMINOTRANSFERASE 32 IU/L (0-55); ALBUMIN 4.2 g/dL (3.5-5.0); ALBUMIN/GLOBULIN RATIO 1.2 (0.8-2.0); ALKALINE PHOSPHATASE 63 IU/L (40-150); ANION GAP 15.9 mmol/L (8-16); BLOOD UREA NITROGEN 10 mg/dL (7-26); BUN/CREATININE RATIO 10 (6-25); CALCIUM 10.1 mg/dL (8.4-10.2); CARBON DIOXIDE 22 mmol/L (22-29); CHLORIDE 99 mmol/L (98-107); CREATINE KINASE 68 IU/L (29-168); CREATININE, SERUM 0.98 mg/dL (0.57-1.11); EST GLOMERULAR FILTRATION RATE 55 ML/MIN (60-); GLUCOSE 112 mg/dL (74-118); POTASSIUM 3.9 mmol/L (3.5-5.1); SODIUM 133 mmol/L (136-145)
--- NOTE | 2019-01-29 21:08 | Diagnostic Imaging Report ---
EXAMINATION: Head CT HISTORY: Syncope, dizziness COMPARISON: Head CT 07/13/2018 TECHNIQUE: Multidetector axial images were obtained without contrast from the foramen magnum to the vertex . The images were reconstructed using brain and bone algorithms. Thin section brain images were reformatted into coronal and sagittal planes. Image quality: Motion/streaking artifact limits the evaluation of the skull base and posterior cranial fossa. Dose modulation, iterative reconstruction, and/or weight based adjustment of the mA/kV was utilized to reduce the radiation dose to as low as reasonably achievable. FINDINGS: Parenchyma: 1. Persistent hematocrit microvascular ischemic changes. 2. No mass or hemorrhage. No CT evidence of acute territorial vascular insult. Extra-axial spaces:No abnormal density. No extra-axial fluid collections Brain volume: Normal for age. Ventricles: No hydrocephalus or displacement. Arteries: No density suggestive of thrombus. Dural sinuses: No abnormal density. Extra-axial spaces: No abnormal density. Foramen magnum: No mass, Chiari malformation, or basilar invagination. Sella: No obvious mass. Paranasal/mastoid sinuses: Imaged portions unremarkable. Skull/Scalp: No lytic or blastic lesions. No fractures. IMPRESSION: 1. No acute intracranial abnormalities. 2. Stable mild chronic microvascular ischemic changes. Signed by: Dr. Bryanna Rush M.D. on 01/29/2019 9:05 PM
--- NOTE | 2019-01-29 21:10 | Diagnostic Imaging Report ---
EXAMINATION: CHEST SINGLE (PORTABLE) INDICATION: ^SOB ^[id number] ^2048 ^Y COMPARISON: 07/13/2018 FINDINGS: AP view TUBES and LINES: None. LUNGS: Lungs are well inflated. Central peribronchovascular thickening/cuffing. Minimal left basilar subsegmental atelectasis. PLEURA: No significant pleural effusion or pneumothorax. HEART AND MEDIASTINUM: The cardiomediastinal silhouette is unremarkable. BONES AND SOFT TISSUES: No acute osseous lesion. Soft tissues are unremarkable. UPPER ABDOMEN: No free air under the diaphragm. IMPRESSION: Central peribronchovascular thickening/cuffing. No definite focal consolidation. Minimal left basilar subsegmental atelectasis. Signed by: Dr. Anton Hernandes MD on 01/29/2019 9:06 PM
[2019-01-29 21:25] LABS: BILIRUBIN,URINE NEGATIVE (NEGATIVE); CLARITY,URINE CLEAR (CLEAR); COLOR,URINE YELLOW (YELLOW); KETONES,URINE NEGATIVE (NEGATIVE); LEUKOCYTE ESTERASE ,URINE SMALL (NEGATIVE); NITRITE,URINE NEGATIVE (NEGATIVE); PROTEIN,URINE DIPSTICK NEGATIVE (NEGATIVE); URINE UROBILINOGEN 0.2 mg/dL (0.2 - 1)
[2019-01-29 21:36] LABS: RBC,URINE 0-5 /HPF (0-5); WBC,URINE (MAN) 0-5 /HPF (0-5)
[2019-01-29 21:37] LABS: BACTERIA,URINE RARE /HPF; EPITHELIAL CELLS,URINE FEW /LPF
[2019-01-29] MEDS ORDERED: MECLIZINE HCL 12.5 MG TAB ONE (21:52)
[2019-01-29] MEDS ORDERED: MECLIZINE HCL12.5 MG PO (21:57)
[2019-01-29] MEDS ORDERED: MECLIZINE HCL 12.5 MG TAB PO ONE (22:00)
== END 2019-01-29 22:38 | disposition home or self-care (01) ==
LOC: ER 19:55
DX: R42 Dizziness and giddiness (principal); R55 Syncope and collapse; R11.0 Nausea
CPT/HCPCS: 36415; 70450; 71045; 80053; 81001; 82550; 82553; 83735; 84484; 85025; 85610; 85730; 93005; 99284; J8597

== ENCOUNTER → 2019-11-30 | Outpatient (CLI) | payer MEDICARE, OTHER ==
[~2019-11-30] MED LIST changes: +FISH OIL 1,2001 EACH PO; +MECLIZINE HCL12.5 MG PO; +VITAMIN D3250 MCG PO
[2019-11-30 14:09] LABS: BASOPHILS % 0.3 % (0.0-1.0); EOSINOPHILS % 0.3 % (0.0-6.0); HEMATOCRIT 39.4 % (34.2-44.1); HEMOGLOBIN 13.3 g/dL (12.0-16.0); LYMPHOCYTES # (AUTO) 1.9 (1.0-3.2); LYMPHOCYTES % 17.8 % (18.0-39.1); MEAN CORPUSCULAR HEMOGLOBIN 32.8 pg (28-32); MEAN CORPUSCULAR HGB CONC 33.8 g/dL (31-35); MONOCYTES # (AUTO) 1.3 (0.2-0.8); MONOCYTES % 12.4 % (4.4-11.3); NEUTROPHILS # (AUTO) 7.2 (2.1-6.9); NEUTROPHILS % 68.6 % (38.7-80.0); PLATELET COUNT 343 x10e3/uL (140-360); RED BLOOD COUNT 4.06 x10e6/uL (3.6-5.1); RED CELL DISTRIBUTION WIDTH 13.2 % (11.7-14.4)
== END ==
LOC: DX 13:33 → EDSTATUS 12-05 07:30
PROVIDERS: ATTEND Internal Medicine Gastroenterology
DX: Z01.818 Encounter for other preprocedural examination (principal); Z86.010 Personal history of colon polyps; R19.7 Diarrhea, unspecified; R11.0 Nausea; Z71.3 Dietary counseling and surveillance; E66.3 Overweight; I10 Essential (primary) hypertension; F17.200 Nicotine dependence, unspecified, uncomplicated
CPT/HCPCS: 36415; 85025; 87635; 93005

== ENCOUNTER → 2020-01-02 | Outpatient (CLI) | payer MEDICARE ==
[~2020-01-02] MED LIST changes: +REGADENOSON 0.4 MG/5 ML SYR IV ONE
--- NOTE | 2020-01-02 16:25 | Myoview Stress Test ---
DATE OF STUDY: 01/02/2020 09:16:00 Stress Test - Treadmill ONLY PROCEDURE TITLE: Rest/stress single isotope SPECT imaging with pharmacologic stress and gated SPECT imaging. INDICATION: Cardiac clearance. PROCEDURE IN DETAIL: The patient performed treadmill exercise using a Mitch protocol exercising for 2 minutes 8 seconds and reaching estimated workload of 4.6 metabolic equivalents (METS). Resting heart rate was 85 beats per minute at rest and increased to 146 beats per minute at peak exercise, which is 91% of the maximum predicted heart rate. Due to the patient's fatigue, patient was switched to pharmacologic stress test instead. The resting blood pressure was 130/64 mmHg and decreased to 117/88 mmHg. Due to patient's fatigue, patient was transitioned to pharmacologic stress testing. Pharmacologic stress testing was performed with regadenoson per protocol. The heart rate was 102 beats per minute at rest and increased to 155 beats per minute during the regadenoson infusion. The resting blood pressure was 117/88 mmHg and increased to 182/73 mmHg, which is a hypertensive response. The resting electrocardiogram demonstrated sinus tachycardia. There were no ST-segment changes suggestive of myocardial ischemia. Myocardial perfusion imaging was performed at rest following the injection of 10.9 mCi of tetrofosmin. At peak pharmacologic effect, the patient was injected with 33 mCi of tetrofosmin. Gated post-stress tomographic imaging was performed. FINDINGS: The overall quality of study is fair. Left ventricular cavity is noted to be normal size on the rest and stress studies. SPECT images demonstrate homogeneous tracer distribution throughout the myocardium. Gated SPECT imaging reveals normal myocardial thickening and wall motion. Left ventricular ejection fraction was calculated greater than 70%. IMPRESSION: Myocardial perfusion imaging is normal. Overall left ventricular systolic function was normal without regional wall motion abnormalities. Tiera Rivera MD ABS/MODL /[id number]
== END ==
LOC: NM 09:01
PROVIDERS: ATTEND Internal Medicine Cardiovascular Disease
DX: Z01.810 Encounter for preprocedural cardiovascular examination (principal); R07.2 Precordial pain; G45.9 Transient cerebral ischemic attack, unspecified
CPT/HCPCS: 78452; 93017; 93306; A9502

== ENCOUNTER 2020-01-15 18:41 | Observation (INO) | payer MEDICARE, OTHER ==
[~2020-01-15] VITALS: Ht 152.4 cm; Wt 57.6 kg
[~2020-01-15 18:41] MED LIST changes: -REGADENOSON 0.4 MG/5 ML SYR IV ONE
[2020-01-15 19:56] LABS: BASOPHILS % 0.4 % (0.0-1.0); EOSINOPHILS % 0.4 % (0.0-6.0); HEMATOCRIT 38.5 % (34.2-44.1); LYMPHOCYTES % 21.1 % (18.0-39.1); MEAN CORPUSCULAR HEMOGLOBIN 32.5 pg (28-32); MEAN CORPUSCULAR HGB CONC 33.8 g/dL (31-35); MEAN CORPUSCULAR VOLUME 96.3 fL (81-99); MONOCYTES # (AUTO) 1.2 (0.2-0.8); MONOCYTES % 12.1 % (4.4-11.3); NEUTROPHILS # (AUTO) 6.3 (2.1-6.9); NEUTROPHILS % 65.6 % (38.7-80.0); PLATELET COUNT 342 x10e3/uL (140-360); RED CELL DISTRIBUTION WIDTH 13.1 % (11.7-14.4)
--- NOTE | 2020-01-15 20:05 | Emergency Department Note ---
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 Any updates have been documented here. Past Medical History Recent Fever: No Clinical Suspicion of Infectio: No New/Unexplained Change in Ment: No Past Medical History: Hypertension, TIA, UTI's, Anxiety Other Medical History: HEMOCHROMOTOCYSIS Past Surgical History: Appendectomy Other Surgery: bladder suspension Ex lap tear duct sx Social History Smoking Cessation: Former smoker Alcohol Use: None Any Illegal Drug Use: No Family History Family history of heart diseas: No Other family history HTN Review of Systems Review of Systems Constitutional: Reports no symptoms EENTM: Reports no symptoms Cardiovascular: Reports no symptoms Respiratory: Reports no symptoms Gastrointestinal: Reports no symptoms Genitourinary: Reports no symptoms Musculoskeletal: Reports no symptoms Integumentary: Reports no symptoms Neurological: Reports as per HPI Psychological: Reports no symptoms Endocrine: Reports no symptoms Hematological/Lymphatic: Reports no symptoms Physical Exam Related Data Allergies: Coded Allergies: Penicillins (Verified Allergy, Mild, VOMITING, DIZZY, RASH, TROUBLE BREATHING, 01/12/18) ciprofloxacin (Verified Allergy, Mild, STABBING PAIN IN CHEST AND SOB, 01/12/18) codeine (Verified Allergy, Mild, DIZZY, VOMITING, 01/12/18) azithromycin (Verified Allergy, Unknown, 11/28/19) latex (Verified Allergy, Unknown, UNKNOWN, 01/12/18) levofloxacin (Verified Allergy, Unknown, UNKNOWN, 01/12/18) nitrofurantoin (Verified Allergy, Unknown, UNKNOWN, 01/12/18) sulfamethoxazole (Verified Adverse Reaction, Severe, NAUSEA AND DIZZINESS, 01/12/18) trimethoprim (Verified Adverse Reaction, Severe, NAUSEA AND DIZZINESS, 01/12/18) Triage Vital Signs Vital Signs Date Time Temp Pulse Resp B/P (MAP) Pulse Ox O2 Delivery O2 Flow Rate FiO2 01/15/20 19:21 97.5 100 20 172/82 98 Room Air Vital signs reviewed: Yes Physical Exam CONSTITUTIONAL Constitutional: Present well-developed, Present well-nourished HENT HENT: Present normocephalic, Present atraumatic, Present oropharynx clear/moist, Present nose normal HENT L/R: Present left ext ear normal, Present right ext ear normal EYES Eyes: Reports PERRL, Reports conjunctivae normal NECK Neck: Present ROM normal PULMONARY Pulmonary: Present effort normal, Present breath sounds normal CARDIOVASCULAR Cardiovascular: Present regular rhythm, Present heart sounds normal, Present capillary refill normal, Present normal rate GASTROINTESTINAL Abdominal: Present soft, Present nontender, Present bowel sounds normal GENITOURINARY Genitourinary: Present exam deferred SKIN Skin: Present warm, Present dry MUSCULOSKELETAL Musculoskeletal: Present other (SKIN TEAR TO DORSUM OF LEFT HAND) NEUROLOGICAL Neurological: Present alert, Present oriented x 3, Present no gross motor or sensory deficits PSYCHOLOGICAL Psychological: Present mood/affect normal, Present judgement normal Results Laboratory Laboratory Laboratory Tests Test 01/15/20 20:21 01/15/20 19:31 Urine Color Yellow (YELLOW) Urine Clarity Sl cloudy (CLEAR) Urine pH 6 (5 - 7) Urine Specific [place] 1.020 (1.010-1.025) Urine Protein Trace (NEGATIVE) Urine Glucose (UA) Negative (NEGATIVE) Urine Ketones Negative (NEGATIVE) Urine Blood Negative (NEGATIVE) Urine Nitrite Negative (NEGATIVE) Urine Bilirubin Negative (NEGATIVE) Urine Urobilinogen 0.2 mg/dL (0.2 - 1) Urine Leukocyte Esterase Moderate (NEGATIVE) Urine RBC None /HPF (0-5) Urine WBC 11-20 /HPF (0-5) Urine Epithelial Cells Moderate /LPF (NONE) Urine Bacteria Moderate /HPF (NONE) White Blood Count 9.65 x10e3/uL (4.8-10.8) Red Blood Count 4.00 x10e6/uL (3.6-5.1) Hemoglobin 13.0 g/dL (12.0-16.0) Hematocrit 38.5 % (34.2-44.1) Mean Corpuscular Volume 96.3 fL (81-99) Mean Corpuscular Hemoglobin 32.5 pg (28-32) Mean Corpuscular Hemoglobin Concent 33.8 g/dL (31-35) Red Cell Distribution Width 13.1 % (11.7-14.4) Platelet Count 342 x10e3/uL (140-360) Neutrophils (%) (Auto) 65.6 % (38.7-80.0) Lymphocytes (%) (Auto) 21.1 % (18.0-39.1) Monocytes (%) (Auto) 12.1 % (4.4-11.3) Eosinophils (%) (Auto) 0.4 % (0.0-6.0) Basophils (%) (Auto) 0.4 % (0.0-1.0) Neutrophils # (Auto) 6.3 (2.1-6.9) Lymphocytes # (Auto) 2.0 (1.0-3.2) Monocytes # (Auto) 1.2 (0.2-0.8) Eosinophils # (Auto) 0.0 (0.0-0.4) Basophils # (Auto) 0.0 (0.0-0.1) Absolute Immature Granulocyte (auto 0.04 x10e3/uL (0-0.1) Prothrombin Time 12.1 seconds (11.9-14.5) Prothromb Time International Ratio 0.85 Activated Partial Thromboplast Time 23.5 seconds (23.8-35.5) Sodium Level 130 mmol/L (136-145) Potassium Level 3.2 mmol/L (3.5-5.1) Chloride Level 95 mmol/L (98-107) Carbon Dioxide Level 24 mmol/L (22-29) Anion Gap 14.2 mmol/L (8-16) Blood Urea Nitrogen 12 mg/dL (7-26) Creatinine 0.93 mg/dL (0.57-1.11) Estimat Glomerular Filtration Rate 59 ML/MIN (60-) BUN/Creatinine Ratio 13 (6-25) Glucose Level 115 mg/dL (74-118) Calcium Level 9.7 mg/dL (8.4-10.2) Total Bilirubin 0.2 mg/dL (0.2-1.2) Aspartate Amino Transf (AST/SGOT) 22 IU/L (5-34) Alanine Aminotransferase (ALT/SGPT) 21 IU/L (0-55) Alkaline Phosphatase 62 IU/L (40-150) Creatine Kinase 30 IU/L (29-168) Creatine Kinase MB 0.90 ng/mL (0-5.0) Troponin I 0.007 ng/mL (0-0.300) Total Protein 7.4 g/dL (6.5-8.1) Albumin 3.8 g/dL (3.5-5.0) Globulin 3.6 g/dL (2.3-3.5) Albumin/Globulin Ratio 1.1 (0.8-2.0) Laboratory Tests Test 01/15/20 19:31 Lab results reviewed: Yes Imaging Imaging results reviewed: Yes Impressions EXAMINATION: CHEST SINGLE (PORTABLE) INDICATION: Syncope COMPARISON: Chest x-ray 01/29/2019 FINDINGS: TUBES and LINES: None. LUNGS: Hyperinflated lungs with flattened hemidiaphragms. Lungs are clear. Prominent central pulmonary vasculature. PLEURA: No pleural effusion or pneumothorax. HEART AND MEDIASTINUM: The cardiomediastinal silhouette is unremarkable. There are atherosclerotic calcifications within the aorta. BONES AND SOFT TISSUES: No acute osseous lesion. Soft tissues are unremarkable. UPPER ABDOMEN: No free air under the diaphragm. IMPRESSION: Pulmonary vascular congestion. Findings suggestive of emphysema/obstructive pulmonary disease. Signed by: Eros Heredia DO on 01/15/2020 9:57 PM Procedure: [id number] CT/CT BRAIN WO Exam Date: 01/15/20 Exam Time: 2029 REPORT STATUS: Signed History:Syncope Comparison studies: None Technique: Axial images were obtained from the skull base to the vertex. Coronal and sagittal images reconstructed from the axial data. Dose modulation, iterative reconstruction, and/or weight based adjustment of the mA/kV was utilized to reduce the radiation dose to as low as reasonably achievable. Intravenous contrast: None Findings: Scalp/skull: No abnormalities. Extra-axial spaces: No masses. No fluid collections. Brain sulci: Moderately prominent. Ventricles: Moderate compensatory dilatation. No hydrocephalus. Parenchyma: Subtle hypodensities in the supratentorial white matter are small vessel ischemic changes. No masses, hemorrhage, acute or chronic cortical vascular insults. Sellar/suprasellar region: No abnormalities. Craniocervical junction: Patent foramen magnum. No Chiari one malformation. Incidental findings: Subtle atherosclerotic calcifications in the carotid siphons . Impression: No acute abnormalities. Chronic findings: 1. Moderate generalized volume loss. 2. Mild supratentorial white matter small vessel ischemic changes. Signed by: Dr. Jamar Munguia M.D. 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 Date: Jan 15, 2020 Time: 19:25 Rhythm: sinus rhythm Rate: normal BPM: 92 QRS axis: normal Conduction: incomplete RBBB ST segments normal: Yes T waves normal: No (NON SPECIFIC CHANGES) Other findings: no other findings Clinical Impression: abnormal ECG Assessment & Plan Medical Decision Making MDM PT S/P SYNCOPAL EPISODE CBC, CMP, EKG, CARDIAC ENZYMES, CXR, CT BRAIN ORDERED TO EVAL FOR MYOCARDIAL INFARCTION, ARRHYTHMIA, ELECTROLYTE ABNORMALITY, INTRACRANIAL ABNORMALITY, I SPOKE WITH DR ENCINAS AND DR ONEAL COVERING FOR JENKINS, ADMIT TO OBSERVATION Reassessment Reassessment time: 22:54 Reassessment PT IS STILL ASYMPTOMATIC AT THIS TIME, I WENT OVER LAB, CT AND XRAY RESULTS WITH PT. Assessment & Plan Final Impression: (1) Syncope Depart Disposition: ADMITTED Last Vital Signs Date Time Temp Pulse Resp B/P (MAP) Pulse Ox O2 Delivery O2 Flow Rate FiO2 01/15/20 19:21 97.5 100 20 172/82 98 Room Air Home Meds Reported Medications Cholecalciferol (Vitamin D3) (Vitamin D3) 250 Mcg Tablet, 250 MCG PO DAILY 11/28/19 Fish Oil/Dha/Epa (FISH OIL 1,200 MG FISH OIL) 1 Each Capsule, 1200 MG PO DAILY 11/28/19 Diltiazem Hcl (CARTIA XT) 240 Mg Cap.er.24h, 240 MG PO DAILY 06/19/18 Lorazepam (ATIVAN) 1 Mg Tablet, 0.5 MG PO TID PRN for ANXIETY 01/20/18 Pantoprazole Sodium* (PROTONIX) 40 Mg Tablet.dr, 40 MG PO DAILY, TAB 01/12/18 Losartan Potassium (LOSARTAN POTASSIUM) 50 Mg Tablet, 100 MG PO DAILY 02/07/16 Clopidogrel Bisulfate* (PLAVIX) 75 Mg Tablet, 75 MG PO DAILY, #30 TAB 01/21/16 NATE GOMEZ MD Jan 15, 2020 20:05
[2020-01-15 20:06] LABS: INR 0.85; PROTHROMBIN TIME 12.1 seconds (11.9-14.5)
[2020-01-15 20:07] LABS: PARTIAL THROMBOPLASTIN TIME 23.5 seconds (23.8-35.5)
[2020-01-15 20:16] LABS: ALBUMIN 3.8 g/dL (3.5-5.0); ALBUMIN/GLOBULIN RATIO 1.1 (0.8-2.0); ANION GAP 14.2 mmol/L (8-16); CALCIUM 9.7 mg/dL (8.4-10.2); CREATININE, SERUM 0.93 mg/dL (0.57-1.11); POTASSIUM 3.2 mmol/L (3.5-5.1)
[2020-01-15 20:23] LABS: CREATINE KINASE MB 0.9 ng/mL (0-5.0)
[2020-01-15 20:51] LABS: CLARITY,URINE SL CLOUDY (CLEAR); COLOR,URINE YELLOW (YELLOW)
[2020-01-15 20:52] LABS: BILIRUBIN,URINE NEGATIVE (NEGATIVE); KETONES,URINE NEGATIVE (NEGATIVE); LEUKOCYTE ESTERASE ,URINE MODERATE (NEGATIVE); NITRITE,URINE NEGATIVE (NEGATIVE); PROTEIN,URINE DIPSTICK TRACE (NEGATIVE); URINE UROBILINOGEN 0.2 mg/dL (0.2 - 1)
[2020-01-15 21:01] LABS: BACTERIA,URINE MODERATE /HPF; EPITHELIAL CELLS,URINE MODERATE /LPF
--- NOTE | 2020-01-15 21:14 | Diagnostic Imaging Report ---
History:Syncope Comparison studies: None Technique: Axial images were obtained from the skull base to the vertex. Coronal and sagittal images reconstructed from the axial data. Dose modulation, iterative reconstruction, and/or weight based adjustment of the mA/kV was utilized to reduce the radiation dose to as low as reasonably achievable. Intravenous contrast: None Findings: Scalp/skull: No abnormalities. Extra-axial spaces: No masses. No fluid collections. Brain sulci: Moderately prominent. Ventricles: Moderate compensatory dilatation. No hydrocephalus. Parenchyma: Subtle hypodensities in the supratentorial white matter are small vessel ischemic changes. No masses, hemorrhage, acute or chronic cortical vascular insults. Sellar/suprasellar region: No abnormalities. Craniocervical junction: Patent foramen magnum. No Chiari one malformation. Incidental findings: Subtle atherosclerotic calcifications in the carotid siphons . Impression: No acute abnormalities. Chronic findings: 1. Moderate generalized volume loss. 2. Mild supratentorial white matter small vessel ischemic changes. Signed by: Dr. Jamar Munguia M.D. on 01/15/2020 9:11 PM
--- NOTE | 2020-01-15 22:00 | Diagnostic Imaging Report ---
EXAMINATION: CHEST SINGLE (PORTABLE) INDICATION: Syncope COMPARISON: Chest x-ray 01/29/2019 FINDINGS: TUBES and LINES: None. LUNGS: Hyperinflated lungs with flattened hemidiaphragms. Lungs are clear. Prominent central pulmonary vasculature. PLEURA: No pleural effusion or pneumothorax. HEART AND MEDIASTINUM: The cardiomediastinal silhouette is unremarkable. There are atherosclerotic calcifications within the aorta. BONES AND SOFT TISSUES: No acute osseous lesion. Soft tissues are unremarkable. UPPER ABDOMEN: No free air under the diaphragm. IMPRESSION: Pulmonary vascular congestion. Findings suggestive of emphysema/obstructive pulmonary disease. Signed by: Eros Heredia DO on 01/15/2020 9:57 PM
[2020-01-15] MEDS ORDERED: SODIUM CHLORIDE FLUSH 10 ML SYR INJ PRN (23:00)
[2020-01-16] VITALS (8 sets, daily range): BP systolic 123–182; BP diastolic 61–94
[2020-01-16] MEDS ORDERED: LOSARTAN POTAS100 MG PO (02:08)
[2020-01-16] MEDS ORDERED: ACETAMINOPHEN500 MG PO (02:08)
[2020-01-16] MEDS ORDERED: ATIVAN0.5 MG PO (02:08)
[2020-01-16 07:24] LABS: CREATINE KINASE 41 IU/L (29-168)
[2020-01-16] MEDS: PANTOPRAZOLE SOD 40 MG TABEC PO SCH (08:55)
[2020-01-16] MEDS: LOSARTAN POTASSIUM 100 MG TAB PO SCH (08:55)
[2020-01-16] MEDS: DOXYCYCLINE HYCLATE TABLET 100 MG TAB PO SCH ×2 (08:55→16:37)
[2020-01-16] MEDS ORDERED: CLOPIDOGREL BISULFATE 75 MG TAB PO SCH (09:00)
[2020-01-16] MEDS: ACETAMINOPHEN 325 MG TAB PO PRN (09:58)
[2020-01-16] MEDS: LACTOBACILLUS ACIDOPHILUS CAPSULE PO SCH (09:58)
[2020-01-16] MEDS: ONDANSETRON HCL INJ 2MG/ML 2ML 2 MG/ML VIAL IV PRN (11:35)
--- NOTE | 2020-01-16 11:41 | Consultation ---
DATE OF CONSULTATION: Cardiology Consultation HISTORY OF PRESENT ILLNESS: This is a 74-year-old woman, who is well known to me as I have seen her multiple times in the outpatient setting. She reports that while eating dinner last night, she felt lightheaded, dizzy and nauseous. She evidently lost consciousness according to the daughter. She denies any chest pain, shortness of breath or palpitations, nor pre-event aura. There was no evidence of seizure-like activity. She states that she has had recurrent and multiple syncopal events for the last 45-50 years. She states that she has had multiple evaluations without any results. 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 She states that now that her syncopal events are improved with taking benzodiazepines. Recent stress test and echocardiogram were normal as of December of this year. REVIEW OF SYSTEMS: A 12-point review of system was conducted, is negative as stated above in the HPI. PAST MEDICAL HISTORY: As stated above in the HPI. PAST SURGICAL HISTORY: None recent. PAST FAMILY HISTORY: Noncontributory to current illness. SOCIAL HISTORY: No illicit drug, alcohol, or tobacco use. ALLERGIES: MULTIPLE, SEE CHART. MEDICATIONS: See medication reconciliation form. PHYSICAL EXAMINATION: VITAL SIGNS: Temperature is 97.7, heart rate 72, respirations are 18, blood pressure is 149/67, oxygen saturation 99% on room air. GENERAL: Well-appearing, well built, no apparent distress. Alert and oriented x3. HEAD: Normocephalic, atraumatic. EYES: Extraocular muscles are intact. Conjunctivae clear. NECK: No JVD. No bruits. CARDIOVASCULAR: Regular rate and rhythm. No murmurs. LUNGS: Clear to auscultation. ABDOMEN: Soft, nontender, nondistended. EXTREMITIES: No clubbing, cyanosis or edema. Vascular 2+ pulses. SKIN: Warm, dry and intact. NEUROLOGIC: No focal deficits noted. LABORATORY DATA: Reviewed. Cardiac enzymes within normal limits. Potassium is 3.2, sodium is 130. Urinalysis reviewed, shows pyuria. IMPRESSION: 1. Syncope. 2. Anxiety. 3. Hypertension. 4. Possible urinary tract infection. 5. Hypokalemia. 6. Hyponatremia. RECOMMENDATIONS: The patient currently does not have a cardiac cause for her syncopal events. Recent stress test and echocardiogram within normal limits. Telemetry monitoring here shows no cardiac arrhythmias. She denies any cardiac symptoms other than dizziness prior to her syncopal events. She did report that her symptoms are improved with benzodiazepines. I suspect there is a psychological cause for her symptoms. She is on antibiotic therapy. No further cardiac workup is required at this point in time and is stable for discharge. DO KEILA Perez/RASHARD /[id number]
--- NOTE | 2020-01-16 14:45 | NUR ---
Patient reports having frequent diarrhea, loose stool. She says she was having this problem at home and her GI doctor and Dr. Sheppard are aware. Notified Dr. Sheppard she is still continuing to have this issue. New orders received.
[2020-01-16] MEDS ORDERED: LOPERAMIDE HCL 2 MG CAP PO PRN (15:00)
[2020-01-16 17:23] LABS: CREATINE KINASE 53 IU/L (29-168)
--- NOTE | 2020-01-16 18:49 | NUR ---
GASTROENTEROLOGY CONSULTATION REASON FOR CONSULT: DIARRHEA CONSULTING PHYSICIAN: Dr. Sheppard HISTORY OF PRESENT ILLNESS: Patient is a 74-year-old woman,with PMH of A fib, HTN and CAD who presented with lightheadedness, dizziness and diarrhea. She evidently lost consciousness according to the daughter. She also reports of some bleeding, she attributes to her hemorrhoids. Patient was seen in Dr. Snider in clinic and was scheduled for EGD/colon however had to get rescheduled due to COVID in February. Patient states she takes Plavix for CAD and has been cleared by her quantitative equity head. She denies any chest pain, shortness of breath or palpitations, nor pre-event aura. REVIEW OF SYSTEMS: negative unless stated above in the HPI. PAST MEDICAL HISTORY: A fib, HTN and CAD PAST SURGICAL HISTORY: None recent. PAST FAMILY HISTORY: Noncontributory to current illness. SOCIAL HISTORY: No illicit drug, alcohol, or tobacco use. ALLERGIES: Multiple - see chart MEDICATIONS: See medication reconciliation form. PHYSICAL EXAMINATION: VITAL SIGNS: Temperature is 97.7, heart rate 72, respirations are 18, blood pressure is 149/67, oxygen saturation 99% on room air. GENERAL: Well-appearing, well built, no apparent distress. Alert and oriented x3. HEAD: Normocephalic, atraumatic. EYES: Extraocular muscles are intact. Conjunctivae clear. CARDIOVASCULAR: Regular rate and rhythm. No murmurs. LUNGS: Clear to auscultation. ABDOMEN: Soft, nontender, nondistended. EXTREMITIES: No clubbing, cyanosis or edema. SKIN: Warm, dry and intact. NEUROLOGIC: No focal deficits noted. LABORATORY DATA: Reviewed. Sodium 130, Potassium 3.2, Creatinine 0.93, AST 22, ALT 21 Hgb 13, Pt 342 WBC 9.65 Imaging reviewed IMPRESSION: Patient is a 74-year-old woman,with PMH of A fib, HTN and CAD who presented with lightheadedness, dizziness and diarrhea. 1. Chronic diarrhea 2. Rectal bleeding 3. GERD/dyspepsia 4. CAD, on Plavix RECOMMENDATIONS: - Pt had been scheduled for outpatient procedures however had been rescheduled - we can go ahead and proceed with procedures (EGD/colonoscopy) on MONDAY w/Dr. Snider - who she had originally been seeing. Prep to be done on Monday and NPO after midnight Monday. Hold Plavix - Discussed the above w/nursing. - hemorrhoidal cream - supportive care for diarrhea, daily questran - check stool cultures - COVID testing is still pending The following has been discussed w/Dr. Melissa Harris, PA-C
--- NOTE | 2020-01-16 18:56 | NUR ---
WALKING ROUNDS PERFORMED, RECEIVED PT LAYING SEMI FOWLERS IN BED, AAOX3, RR EVEN AND NON-LABORED, ON ROOM AIR. NO S/SX OF DISTRESS NOTED. LEFT PT LAYING SEMI FOWLERS IN BED, BED IN LOW LOCKED POSITION, SIDE RAILS UPX2, CALL LIGHT AND PHONE WITHIN REACH.
[2020-01-16] MEDS: LORAZEPAM 0.5 MG TAB PO PRN (19:54)
[2020-01-17] VITALS: BP 157/85
[2020-01-17 04:00] VITALS: BP 145/72
[2020-01-17] MEDS: ACETAMINOPHEN 325 MG TAB PO PRN ×2 (05:10→14:11)
[2020-01-17] MEDS ORDERED: DIPHENHYDRAMINE HCL 25 MG CAP PO PRN (05:15)
[2020-01-17 05:23] LABS: BASOPHILS % 0.4 % (0.0-1.0); EOSINOPHILS # (AUTO) 0.1 (0.0-0.4); EOSINOPHILS % 0.8 % (0.0-6.0); HEMATOCRIT 37.9 % (34.2-44.1); HEMOGLOBIN 12.9 g/dL (12.0-16.0); LYMPHOCYTES # (AUTO) 2.1 (1.0-3.2); LYMPHOCYTES % 29.3 % (18.0-39.1); MEAN CORPUSCULAR HEMOGLOBIN 32.3 pg (28-32); MEAN CORPUSCULAR VOLUME 94.8 fL (81-99); MONOCYTES % 13.3 % (4.4-11.3); NEUTROPHILS # (AUTO) 4.1 (2.1-6.9); NEUTROPHILS % 55.8 % (38.7-80.0); PLATELET COUNT 337 x10e3/uL (140-360); RED CELL DISTRIBUTION WIDTH 12.9 % (11.7-14.4)
[2020-01-17 05:36] LABS: ALANINE AMINOTRANSFERASE 21 IU/L (0-55); ALBUMIN 3.6 g/dL (3.5-5.0); ALBUMIN/GLOBULIN RATIO 1.1 (0.8-2.0); ALKALINE PHOSPHATASE 50 IU/L (40-150); ANION GAP 13.7 mmol/L (8-16); BLOOD UREA NITROGEN 5 mg/dL (7-26); BUN/CREATININE RATIO 6 (6-25); CALCIUM 9.6 mg/dL (8.4-10.2); CARBON DIOXIDE 23 mmol/L (22-29); CHLORIDE 102 mmol/L (98-107); CREATININE, SERUM 0.77 mg/dL (0.57-1.11); EST GLOMERULAR FILTRATION RATE > 60 ML/MIN (60-); GLUCOSE 86 mg/dL (74-118); MAGNESIUM 1.5 MG/DL (1.3-2.1); POTASSIUM 3.7 mmol/L (3.5-5.1); SODIUM 135 mmol/L (136-145)
--- NOTE | 2020-01-17 07:00 | NUR ---
RCD PT AT BED PT IS ALERT AND ORIENTED PT RESTING ON BED IV PATENT BY SALINE FLUSH BED LOW AND LOCKED CALL LIGHT IN REACH
[2020-01-17 08:40] VITALS: BP 160/93
[2020-01-17 08:41] VITALS: BP 160/93
[2020-01-17] MEDS: DOXYCYCLINE HYCLATE TABLET 100 MG TAB PO SCH ×2 (09:00→17:00)
[2020-01-17] MEDS: LOSARTAN POTASSIUM 100 MG TAB PO SCH (09:00)
[2020-01-17] MEDS: PANTOPRAZOLE SOD 40 MG TABEC PO SCH (09:00)
[2020-01-17] MEDS: LACTOBACILLUS ACIDOPHILUS CAPSULE PO SCH (09:00)
[2020-01-17] MEDS ORDERED: CITALOPRAM HYDROBROMIDE 20 MG TAB PO SCH (09:00)
--- NOTE | 2020-01-17 10:00 | NUR ---
PT REQUESTED MORE BLOOD PRESSURE MEDS PAGED AND NOTIFIED DR DUMAS HE SAID HE COMING TO SEE THE PT
[2020-01-17] MEDS: ONDANSETRON HCL INJ 2MG/ML 2ML 2 MG/ML VIAL IV PRN (10:17)
[2020-01-17] MEDS: LORAZEPAM 0.5 MG TAB PO PRN (10:17)
--- NOTE | 2020-01-17 11:00 | NUR ---
AC TO QUALITY CONTROL ASSISTANT PAGED DR TONG TO NOTIFY THAT ITS OK TO DO THE PROCEDURE IN OUT PATIENT BASIS
[2020-01-17 11:52] VITALS: BP 154/82
[2020-01-17] MEDS ORDERED: AMLODIPINE BESYLATE 10 MG TAB PO SCH (14:15)
--- NOTE | 2020-01-17 15:36 | NUR ---
AGAIN PAGED DR TONG AND TALKED HIM GOT THE DISCHARGE ORDER
--- NOTE | 2020-01-17 15:46 | NUR ---
PT C/O BURNING ALL OVER THE BODY PAGED DR DUMAS TO NOTIFY THAT
[2020-01-17 16:30] VITALS: BP 160/79
--- NOTE | 2020-01-17 17:00 | NUR ---
DR DUMAS CAME TO SEE THE PT HE SAID HE OK TO DISCHARGE THE PT
--- NOTE | 2020-01-17 17:14 | NUR ---
PAGED AND NOTIFIED DR HUANG TREVIZO IS OK TO DISCHARGE THE PT GOT THE DISCHARGE ORDER
--- NOTE | 2020-01-17 18:24 | NUR ---
PATIENT WENT HOME IN SAFE CONDITION WITH HER DAUGHTER
--- NOTE | 2020-01-17 19:01 | Progress Note ---
DATE: Cardiology Progress Note SUBJECTIVE: The patient reporting multiple nonspecific symptoms including left leg pain and anxiety. OBJECTIVE: VITAL SIGNS: Temperature is 98.0, heart rate is 82, respirations are 20, blood pressure is 154/82, and oxygen saturation 99% on room air. GENERAL: She is anxious-appearing woman, no apparent distress. CARDIOVASCULAR: Regular rate and rhythm. LUNGS: Clear to auscultation. ABDOMEN: Soft, nontender, and nondistended. EXTREMITIES: No clubbing, cyanosis, or edema. LABORATORY DATA: Reviewed. CARDIOVASCULAR MEDICATIONS: Reviewed. IMPRESSION: 1. Hypertension. 2. Syncope. 3. Anxiety. 4. Urinary tract infection. 5. Hypokalemia. RECOMMENDATIONS: No current cardiovascular conditions are present at this point in time other than her hypertension. I have added amlodipine and we will titrate her other antihypertensives for better blood pressure control. The patient reports that her symptoms have improved with benzodiazepines. I suspect there is a psychological cause for her symptoms. The patient is stable for discharge from a cardiovascular standpoint. Kenny Dee DO BM/MODL /[id number]
[2020-01-19] MEDS ORDERED: PEG (High)/E-LYTE SOLN 4,000 ML BTL PO ONE (09:00)
== END 2020-01-17 18:30 | disposition home or self-care (01) ==
LOC: ER 20:30 → ERHOLD 22:59 → MED/SURG 01-16 01:32
PROVIDERS: ADMIT Internal Medicine; ATTEND Internal Medicine
DX: K52.9 Noninfective gastroenteritis and colitis, unspecified (principal); I10 Essential (primary) hypertension; F41.9 Anxiety disorder, unspecified; E87.6 Hypokalemia; I25.10 Atherosclerotic heart disease of native coronary artery without angina pectoris; N39.0 Urinary tract infection, site not specified; E87.1 Hypo-osmolality and hyponatremia; Z11.59 Encounter for screening for other viral diseases; K92.2 Gastrointestinal hemorrhage, unspecified; R19.7 Diarrhea, unspecified
CPT/HCPCS: 36415 ×3; 70450; 71045; 80053 ×2; 81001; 82550 ×2; 82553 ×2; 83735; 84484 ×2; 85025 ×2; 85610; 85730; 87635; 93005; 99284; G0378 ×3; J2405 ×2; S0164 ×2

== ENCOUNTER 2020-03-03 01:51 | Emergency (ER) | payer MEDICARE, OTHER ==
[~2020-03-03] VITALS: Ht 152.4 cm; Wt 56.2 kg
[~2020-03-03 01:51] MED LIST changes: +ACETAMINOPHEN500 MG PO; +ATIVAN0.5 MG PO; +CITALOPRAM HBR20 MG PO; +LOSARTAN POTAS100 MG PO
--- NOTE | 2020-03-03 02:06 | Emergency Department Note ---
History of Present Illnes History of Present Illness Chief Complaint: Hypertension History of Present Illness This is a 74 year old female . Historian: Patient Aircraft Refueller Required: No Onset (how long ago): week(s) (1) Radiation: Reports non-radiation Severity: mild Onset quality: gradual Duration (how long): week(s) (1) Timing of current episode: constant Progression: unchanged Context: Reports new medications Relieving factors: none Exacerbating factors: none Associated symptoms: Reports denies other symptoms Treatments prior to arrival: none Past Medical/Family History Physician Review I have reviewed the patient's past medical and family history. Any updates have been documented here. Past Medical History Recent Fever: No Clinical Suspicion of Infectio: No New/Unexplained Change in Ment: No Past Medical History: Hypertension Other Medical History: HEPATITIS C HEMOCHROMATOSIS CHRONIC APPENDICITIS Past Surgical History: Appendectomy Other Surgery: BLADDER SUSPENSION EXPLORATORY SURGERY Social History Smoking Cessation: Never Smoker Alcohol Use: None Any Illegal Drug Use: No Other Last Tetanus: UTD Review of Systems Review of Systems Constitutional: Reports no symptoms EENTM: Reports no symptoms Cardiovascular: Reports no symptoms Respiratory: Reports no symptoms Gastrointestinal: Reports nausea Genitourinary: Reports no symptoms Musculoskeletal: Reports no symptoms Integumentary: Reports no symptoms Neurological: Reports paresthesia, Reports tingling Psychological: Reports no symptoms Endocrine: Reports no symptoms Hematological/Lymphatic: Reports no symptoms Physical Exam Related Data Allergies: Coded Allergies: Penicillins (Verified Allergy, Mild, VOMITING, DIZZY, RASH, TROUBLE BREATHING, 01/12/18) ciprofloxacin (Verified Allergy, Mild, STABBING PAIN IN CHEST AND SOB, 01/12/18) codeine (Verified Allergy, Mild, DIZZY, VOMITING, 01/12/18) Macrolide Antibiotics (Verified Allergy, Unknown, 02/26/20) Sulfa (Sulfonamide Antibiotics) (Verified Allergy, Unknown, 02/26/20) azithromycin (Verified Allergy, Unknown, 11/28/19) latex (Verified Allergy, Unknown, UNKNOWN, 01/12/18) levofloxacin (Verified Allergy, Unknown, UNKNOWN, 01/12/18) nitrofurantoin (Verified Allergy, Unknown, UNKNOWN, 01/12/18) sulfamethoxazole (Verified Adverse Reaction, Severe, NAUSEA AND DIZZINESS, 01/12/18) trimethoprim (Verified Adverse Reaction, Severe, NAUSEA AND DIZZINESS, 01/12/18) Uncoded Allergies: BETA BLOCKERS (Allergy, Unknown, 03/03/20) Triage Vital Signs Vital Signs Date Time Temp Pulse Resp B/P (MAP) Pulse Ox O2 Delivery O2 Flow Rate FiO2 03/03/20 02:01 97.7 103 20 224/106 99 Room Air Vital signs reviewed: Yes Physical Exam CONSTITUTIONAL Constitutional: Present well-developed, Present well-nourished HENT HENT: Present normocephalic, Present atraumatic, Present oropharynx clear/moist, Present nose normal HENT L/R: Present left ext ear normal, Present right ext ear normal EYES Eyes: Reports PERRL, Reports conjunctivae normal NECK Neck: Present ROM normal PULMONARY Pulmonary: Present effort normal, Present breath sounds normal CARDIOVASCULAR Cardiovascular: Present regular rhythm, Present heart sounds normal, Present capillary refill normal, Present normal rate GASTROINTESTINAL Abdominal: Present soft, Present nontender, Present bowel sounds normal GENITOURINARY Genitourinary: Present exam deferred SKIN Skin: Present warm, Present dry MUSCULOSKELETAL Musculoskeletal: Present ROM normal NEUROLOGICAL Neurological: Present alert, Present oriented x 3, Present no gross motor or sensory deficits PSYCHOLOGICAL Psychological: Present mood/affect normal, Present judgement normal Results Laboratory Lab results reviewed: Yes Laboratory comments Laboratory Tests Test 03/03/20 02:09 White Blood Count 9.30 x10e3/uL (4.8-10.8) Red Blood Count 4.26 x10e6/uL (3.6-5.1) Hemoglobin 13.4 g/dL (12.0-16.0) Hematocrit 39.8 % (34.2-44.1) Mean Corpuscular Volume 93.4 fL (81-99) Mean Corpuscular Hemoglobin 31.5 pg (28-32) Mean Corpuscular Hemoglobin Concent 33.7 g/dL (31-35) Red Cell Distribution Width 12.0 % (11.7-14.4) Platelet Count 378 x10e3/uL (140-360) Neutrophils (%) (Auto) 51.3 % (38.7-80.0) Lymphocytes (%) (Auto) 34.6 % (18.0-39.1) Monocytes (%) (Auto) 11.3 % (4.4-11.3) Eosinophils (%) (Auto) 1.9 % (0.0-6.0) Basophils (%) (Auto) 0.6 % (0.0-1.0) Neutrophils # (Auto) 4.8 (2.1-6.9) Lymphocytes # (Auto) 3.2 (1.0-3.2) Monocytes # (Auto) 1.1 (0.2-0.8) Eosinophils # (Auto) 0.2 (0.0-0.4) Basophils # (Auto) 0.1 (0.0-0.1) Absolute Immature Granulocyte (auto 0.03 x10e3/uL (0-0.1) Sodium Level 131 mmol/L (136-145) Potassium Level 3.3 mmol/L (3.5-5.1) Chloride Level 97 mmol/L (98-107) Carbon Dioxide Level 19 mmol/L (22-29) Anion Gap 18.3 mmol/L (8-16) Blood Urea Nitrogen 12 mg/dL (7-26) Creatinine 0.88 mg/dL (0.57-1.11) Estimat Glomerular Filtration Rate > 60 ML/MIN (60-) BUN/Creatinine Ratio 14 (6-25) Glucose Level 110 mg/dL (74-118) Calcium Level 9.7 mg/dL (8.4-10.2) Total Bilirubin 0.3 mg/dL (0.2-1.2) Aspartate Amino Transf (AST/SGOT) 23 IU/L (5-34) Alanine Aminotransferase (ALT/SGPT) 18 IU/L (0-55) Alkaline Phosphatase 64 IU/L (40-150) Creatine Kinase 98 IU/L (29-168) Creatine Kinase MB 2.90 ng/mL (0-5.0) Troponin I 0.006 ng/mL (0-0.300) Total Protein 7.7 g/dL (6.5-8.1) Albumin 3.9 g/dL (3.5-5.0) Globulin 3.8 g/dL (2.3-3.5) Albumin/Globulin Ratio 1.0 (0.8-2.0) Imaging Imaging results reviewed: Yes Impressions [place] [id number] Patient Name: LADONNA DAN MR #: [id number] : 1945 Age/Sex: 74/F Req #: [id number] Adm Physician: Ordered by: BUCK MALONE DO Report #: [id number] Location: ER Room/Bed: Procedure: [id number] CT/CT BRAIN WO Exam Date: Exam Time: REPORT STATUS: Signed Exam: Head CT without contrast History: Dizziness Comparison studies: Multiple prior head CTs which date to 12/16/2010, most recent head CT 01/15/2020. Technique: Axial images were obtained from the skull base to the vertex. Coronal and sagittal images reconstructed from the axial data. Dose modulation, iterative reconstruction, and/or weight based adjustment of the mA/kV was utilized to reduce the radiation dose to as low as reasonably achievable. Radiation dose: Total DLP: 832.18 mGy*cm. Estimated effective dose: DLP x 0.015 Intravenous contrast: None Findings: Scalp: Unchanged incidental scarring with punctate calcifications in the left supraorbital scalp. Bones: No fractures, blastic or lytic lesions. Brain sulci: Mildly prominent, unchanged. Ventricles: Mild compensatory dilatation, unchanged. No hydrocephalus. Extra-axial spaces: No masses, no fluid collection. Parenchyma: A few scattered hypodensities in the supratentorial white matter are nonspecific but are most compatible with chronic microvascular ischemic changes. No masses, hemorrhage, acute or chronic vascular insults. Sellar/suprasellar region: No abnormalities. Craniocervical junction: Patent foramen magnum. No Chiari one malformation. Incidental findings: Degenerative changes at the right temporomandibular joint. Bilateral intraocular lens replacements. Atherosclerotic calcifications in the carotid siphons. IMPRESSION: No acute intracranial abnormalities. Chronic findings: 1. Generalized parenchymal volume loss. 2. Mild chronic microvascular ischemic changes. Signed by: Dr. Lynette Hawk M.D. on 03/03/2020 2:52 AM Dictated By: LYNETTE HAWK MD 1 Transcribed By: MERI on 03/03/20251 COPY TO: BUCK MALONE DO~ Procedures 12 Lead ECG Interpretation ECG Interpretation : ECG: ECG 1 Aircraft Refueller: Interpreted by ED physician Date: Mar 03, 2020 Time: 02:07 Prior ECG tracings: reviewed Rhythm: sinus rhythm Rate: normal BPM: 100 QRS axis: normal ST segments normal: No ST segment flattening: I, II T waves normal: Yes T wave inversion: V4, V5, V6 T waves flattening: V1, V2 Clinical Impression: abnormal ECG Assessment & Plan Medical Decision Making MDM Diff Dx : CVA, intracranial brain pathology, ACS Assessment & Plan Final Impression: (1) Dizziness (2) Hypertension (3) Hyponatremia (4) Hypokalemia Depart Disposition: HOME, SELF-CARE Last Vital Signs Date Time Temp Pulse Resp B/P (MAP) Pulse Ox O2 Delivery O2 Flow Rate FiO2 03/03/20 03:49 98 18 98 03/03/20 03:45 144/61 Room Air 03/03/20 02:01 97.7 Home Meds Reported Medications Clonidine Hcl (CLONIDINE HCL) 0.1 Mg Tablet, 1 TAB PO PRN, #60 TAB 02/26/20 Citalopram Hydrobromide (CITALOPRAM HBR) 20 Mg Tablet, 20 MG PO DAILY, TAB 02/26/20 Acetaminophen (ACETAMINOPHEN) 500 Mg Tablet, 500 MG PO Q6H PRN for PAIN 01/16/20 Losartan Potassium (LOSARTAN POTASSIUM) 100 Mg Tablet, 100 MG PO DAILY, TAB 01/16/20 Cholecalciferol (Vitamin D3) (Vitamin D3) 250 Mcg Tablet, 250 MCG PO DAILY 11/28/19 Fish Oil/Dha/Epa (FISH OIL 1,200 MG FISH OIL) 1 Each Capsule, 1200 MG PO DAILY 11/28/19 Pantoprazole Sodium* (PROTONIX) 40 Mg Tablet.dr, 40 MG PO DAILY, TAB 01/12/18 Clopidogrel Bisulfate* (PLAVIX) 75 Mg Tablet, 75 MG PO DAILY, #30 TAB 01/21/16 BUCK MALONE DO Mar 03, 2020 02:06
[2020-03-03] MEDS ORDERED: HYDRALAZINE HCL 20 MG/ML VIAL IV STA (02:09)
[2020-03-03] MEDS ORDERED: ONDANSETRON HCL INJ 2MG/ML 2ML 2 MG/ML VIAL IV STA (02:24)
--- OUTSIDE RECORDS SUMMARY | 2020-03-03 02:35 | XMS REPORT | Continuity of Care Document ---
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 patient performed treadmill exercise using a Mitch protocol e xercising for 2 minutes 8 seconds and reaching estimated workload of 4.6 metabol ic equivalents (METS). Resting heart rate was 85 beats per minute at rest and increased to 146 beats per minute at peak exercise, which is 91% of the maximum predicted heart rate. The resting blood pressure was 130/64 mmHg and decreased to 117/88 mmHg. Due to patient's fatigue, patient was transitioned to pharmac ologic stress testing. Pharmacologic stress testing was performed with rega denoson per protocol. The heart rate was 102 beats per minute at rest and incr eased to 155 beats per minute during the regadenoson infusion. The resting blo od pressure was 117/88 mmHg and increased to 182/73 mmHg, which is a hypertensi ve response. The resting electrocardiogram demonstrated sinus tachycardia. Th ere were no ST-segment changes suggestive of myocardial ischemia. Myocardi al perfusion imaging was performed at rest following the injection of 10.9 mCi of tetrofosmin. At peak pharmacologic effect, the patient was injected with 33 mCi of tetrofosmin. Gated post-stress tomographic imaging was performed. FINDINGS: The overall quality of study is fair. Left ventricular cavity is not ed to be normal size on the rest and stress studies. SPECT images demonstrate homogeneous tracer distribution throughout the myocardium. Gated SPECT imaging reveals normal myocardial thickening and wall motion. Left ventricular ejecti on fraction was calculated greater than 70%. IMPRESSION: Myocardial perfu norberto imaging is normal. Overall left ventricular systolic function was normal without regional wall motion abnormalities. Sandra Rivera MD ABS/MODL /[id number] Signature Date Dictate d By: SANDRA RIVERA MD Transcribed By: MODL on 01/02/20 <Electronically signed by SANDRA RIVERA MD><<Signature on File>>01/15/20 1540 COPY TO: Fluoroscopic procedure less than one hour hhtyykkb7228-41-89 12:05:00* Test Item Value Reference Range Interpretation Comments Coronavirus (PCR) (test code = Coronavirus (PCR)) NOT DETECTED NOTD ETECTED SARS-COV-2 (COVID19), HIGHRISK, RT-PCRNegative results do not preclude SARS-CoV- 2 infection and should not be used as the sole basis for patient management deci sions. Negative results must be combined with clinical observations, patient his tory, and epidemiological information. Optimum specimen types and timing for pea k viral levels during infections caused by SARS-CoV-2 have not been determined. Collection of multiple specimens ot types of specimens may be necessary to detec t virus. Improper specimen collection and handling, sequence variability under p rimers/probes, or organism present below the limit of detection may lead to fals e negative results. Positive and negative predictive values of testing are highl y dependent on prevalance. False negative test results are more likely when prev alence is high.The expected result is negative (not detected).The SARS-CoV-2 aury t is intended for the qualitative detection of nucleic acid from SARS-CoV-2 in n asopharyngeal and oropharyngeal swab samples from patients who meet COVID-19 cli nical and or epidemiological criteria. For lower respiratory tract specimens, th e assay is submitted for authoriztion by FDA under an Emergency Use Authorizatio n (EUA). Testing methodology is real time RT-PCR. If received as separate collec tion devices, nasopharygeal and oropharyngeal specimens are combined for analysi s. Additional specimens may be split to a separate accession for analysi and rep orting as this test includes a single unit of service.Test results must be corre lated with clinical presentation and evaluated in the context of other laborator y and epidemiologic data. Test performance can be affected because the epidemiol ogy and clinical spectrum of infection caused by SARS-CoV-2 is not fully known. For example, the optimum types of specimens to collect and when during the cours e of infection these specimens are most likely to contain detectable viral RNA m ay not be known.This test has not been Food and Drug Administration (FDA) cleare d or approved and has been authorized by FDA under an Emergency Use Authorizatio n (EUA). The test is only authorized for the duration of the declaration that ci rcumstances exist justifying the authorization of emergency use of in vitro diag nostic tests for detection and/or diagnosis of SARS-CoV-2 under section 564(b) o f the Act, 21 U.S.C. section 360bbb-3(b)(1), unless the authorization is termina elijah or revoked sooner. [facility] are certified under the C linical Laboratory Improvement Amendments of 1988 (CLIA), 42 U.S.C. section 263a , to perform high complexity tests.Testing performed by [facility] [address] [place], [place] [phone] Director: Jose Seals M.D.CLIA # [id number] [facility] at ParkwayUrine [id number] 21:37:00* Test Item Value Reference Range Interpretation Comments Urine WBC (test code = 5821-4) 0-5 0-5 [facility] ParkwayUrine WTK9140-06-66 21:37:00* Test Item Value Reference Range Interpretation Comments Urine RBC (test code = 34889-9) 0-5 0-5 [facility] ParkwayUrine Uuifupix2985-19-01 21:37:00* Test Item Value Reference Range Interpretation Comments Urine Bacteria (test code = 57191-6) RARE NONE [facility]wayUrine Epithelial Gcrrm4577-98-71 21:37:00 * Test Item Value Reference Range Interpretation Comments Urine Epithelial Cells (test code = 94805-9) FEW NONE [facility] ParkwayUrine Hamft6358-23-76 21:26:00* Test Item Value Reference Range Interpretation Comments Urine Color (test code = 5778-6) YELLOW YELLOW [facility] ParkwayUrine Phkumto6698-54-38 21:26:00* Test Item Value Reference Range Interpretation Comments Urine Clarity (test code = 73164-6) CLEAR CLEAR [facility]wayUrine Specific Cvrhgfs2872-60-07 21:26:00 * Test Item Value Reference Range Interpretation Comments Urine Specific [place] (test code = 5811-5) <=1.005 1.010-1.02 5 [facility] ParkwayUrine kG9723-91-86 21:26:00* Test Item Value Reference Range Interpretation Comments Urine pH (test code = 81475-7) 6.5 5-7 [facility]wayU[facility] Leukocyte Vzgxrwjv6772-17-43 21:26:00* Test Item Value Reference Range Interpretation Comments Urine Leukocyte Esterase (test code = 13803-0) SMALL NEGATIV E [facility]wayUrine Efhumkm7101-55-24 21:26:00* Test Item Value Reference Range Interpretation Comments Urine Nitrite (test code = 89684-0) NEGATIVE NEGATIVE [facility] ParkwayUrine Qvgwjsx8162-61-10 21:26:00* Test Item Value Reference Range Interpretation Comments Urine Protein (test code = 58172-7) NEGATIVE NEGATIVE [facility] ParkwayUrine Glucose (UA)2019-01-29 21:26:00* Test Item Value Reference Range Interpretation Comments Urine Glucose (UA) (test code = 43082-2) NEGATIVE NEGATIVE [facility] ParkwayUrine Eogncid3665-75-94 21:26:00* Test Item Value Reference Range Interpretation Comments Urine Ketones (test code = 49221-7) NEGATIVE NEGATIVE [facility]wayUrine Pfpwrwhiyfnw2175-34-07 21:26:00* Test Item Value Reference Range Interpretation Comments Urine Urobilinogen (test code = 28260-5) 0.2 0.2-1 [facility] ParkwayUrine Abknlkwqs3294-75-53 21:26:00* Test Item Value Reference Range Interpretation Comments Urine Bilirubin (test code = 1977-8) NEGATIVE NEGATIVE [facility] ParkwayUrine Yknbt1329-34-67 21:26:00* Test Item Value Reference Range Interpretation Comments Urine Blood (test code = 08445-8) NEGATIVE NEGATIVE [facility] ParkwayCHEST SINGLE (PORTABLE)2019-01-29 21:05:00 [facility] [address] [address] Patient Name: LADONNA DAN MR #: [id number] : 1945 Age/Sex: 73/F Req #: [id number] Adm Physician: Ordered by: KRISHAN PITTMAN MD Report #: [id number] Location: ER Room/Bed: Procedure: [id number] DX/CHEST SINGLE (PORTABLE) Exam Date: 01/29/19 Exam Time: 2048 REPORT STATUS: Signed EXAMINATION: CHEST SINGLE (PORTABLE) INDICATION: SOB 2018 722 2048 Y COMPARISON: 07/13/2018 FINDINGS: AP view TUBES and LINES: None. LUNGS: Lungs are well inflated. Central peribro nchovascular thickening/cuffing. Minimal left basilar subsegmental atelectas is. PLEURA: No significant pleural effusion or pneumothorax. HEART AN D MEDIASTINUM: The cardiomediastinal silhouette is unremarkable. BONES AND SOFT TISSUES: No acute osseous lesion. Soft tissues are unremarkable. UPPER ABDOMEN: No free air under the diaphragm. IMPRESSION: Cent ral peribronchovascular thickening/cuffing. No definite focal consolidation. Minimal left basilar subsegmental atelectasis. Signed by: Dr. Anton Encarnacion i, MD on 01/29/2019 9:06 PM Dictated By: ANTON CHAMBERS MD 05 Transcribed By: MERI on 2105 COPY TO: KRISHAN PITTMAN MD Magnesium Nnfng1992-93-56 21:04:00* Test Item Value Reference Range Interpretation Comments Magnesium Level (test code = 78282-8) 2.0 1.3-2.1 [facility] [id number] 21:03:00 [facility] [address] [address] Patient Name: LADONNA DAN MR #: [id number] : 1945 Age/Sex: 73/F Req #: [id number] Adm Physician: Ordered by: KRISHAN PITTMAN MD Report #: [id number] Location: ER Room/Bed: Procedure: [id number] CT/CT BRAIN WO Exam Date: 01/29/19 Exam Time: 2039 REPORT STATUS: Signed EXAMINATION : Head CT HISTORY: Syncope, dizziness COMPARISON: Head CT 07/13/2018 RADHA HNIQUE: Multidetector axial images were obtained without contrast from the for amen magnum to the vertex . The images were reconstructed using brain and bone algorithms. Thin section brain images were reformatted into coronal and sagi ttal planes. Image quality: Motion/streaking artifact limits the evaluation of the skull base and posterior cranial fossa. Dose modulation, iterative buzz nstruction, and/or weight based adjustment of the mA/kV was utilized to reduce the radiation dose to as low as reasonably achievable. FINDINGS: Parenchyma: 1. Persistent hematocrit microvascular ischemic changes. 2. No mass or hemorrhage. No CT evidence of acute territorial vascular insult. Extra-axial spaces:No abnormal density. No extra-axial fluid c ollections Brain volume: Normal for age. Ventricles: No hydrocep halus or displacement. Arteries: No density suggestive of thrombus. Dural sinuses: No abnormal density. Extra-axial spaces: No abnormal density. Foramen magnum: No mass, Chiari malformation, or basilar invag ination. Sella: No obvious mass. Paranasal/mastoid sinuses: Anneliese ged portions unremarkable. Skull/Scalp: No lytic or blastic lesions. No fractures. IMPRESSION: 1. No acute intracranial abnormalities. 2. Stable mild chronic microvascular ischemic changes. Signed by: Dr. Whit Rush M.D. on 01/29/2019 9:05 PM Dictated By: WHIT RUSH MD [facility] [facility] Signed By: WHIT RUSH MD on 01/29/192104 Transcribed By: MERI on 01/29 COPY TO: KRISHAN PITTMAN MD Creatine Kinase MB 2019-01-29 20:59:00* Test Item Value Reference Range Interpretation Comments Creatine Kinase MB (test code = 75425-6) 1.30 0-5.0 [facility] ParkwayTroponin [id number] 20:59:00* Test Item Value Reference Range Interpretation Comments Troponin I (test code = LLF7972) < 0.001 0-0.300 [facility] Tomballodium Ullre9548-82-61 20:52:00* Test Item Value Reference Range Interpretation Comments Sodium Level (test code = 2951-2) 133 136-145 L [facility] ParkwayPotassium Cxiwz7281-35-10 20:52:00* Test Item Value Reference Range Interpretation Comments Potassium Level (test code = 2823-3) 3.9 3.5-5.1 [facility] ParkwayChloride Ttiys2978-86-94 20:52:00* Test Item Value Reference Range Interpretation Comments Chloride Level (test code = 2075-0) 99 98-107 [facility] ParkwayCarbon Dioxide Nmcos9636-35-98 20:52:00* Test Item Value Reference Range Interpretation Comments Carbon Dioxide Level (test code = 2028-9) 22 22-29 [facility] ParkwayAnion Iou8422-84-95 20:52:00* Test Item Value Reference Range Interpretation Comments Anion Gap (test code = 81351-3) 15.9 8-16 [facility] ParkwayBlood Urea Idyzaoqu5759-86-80 20:52:00* Test Item Value Reference Range Interpretation Comments Blood Urea Nitrogen (test code = 3094-0) 10 7-26 [facility] ParkwayCreatinine2019-07-23 20:52:00* Test Item Value Reference Range Interpretation Comments Creatinine (test code = 2160-0) 0.98 0.57-1.11 [facility] ParkwayBUN/Creatinine Wxnwb8004-82-95 20:52:00* Test Item Value Reference Range Interpretation Comments BUN/Creatinine Ratio (test code = 3097-3) 10 6- [facility] ParkwayEstimat Glomerular Filtration Rate 2019-01-29 20:52:00* Test Item Value Reference Range Interpretation Comments Estimat Glomerular Filtration Rate (test code = 295742300) 55 >60 L Ranges were taken from the National Kidney Disease Education Program and the [facility] Foundation literature.Reference ranges:60 or greater: Ajiutn30-70 ( for 3 consecutive months): Chronic kidney disease 15 or less: Kidney failureWise Health Surgical Hospital at ParkwayGlucose Avert4675-94-79 20:52:00* Test Item Value Reference Range Interpretation Comments Glucose Level (test code = KNS6646) 112 74-118 [facility] ParkwayCalcium Swbko1331-09-31 20:52:00* Test Item Value Reference Range Interpretation Comments Calcium Level (test code = 84947-6) 10.1 8.4-10.2 [facility] ParkwayTotal Snqvihodv2448-48-13 20:52:00* Test Item Value Reference Range Interpretation Comments Total Bilirubin (test code = 1975-2) 0.3 0.2-1.2 [facility] ParkwayAspartate Amino Transf (AST/SGOT) 2019-01-29 20:52:00* Test Item Value Reference Range Interpretation Comments Aspartate Amino Transf (AST/SGOT) (test code = Aspartate Amino Transf (AST/SGOT)) 26 5-34 [facility] ParkwayAlanine Aminotransferase (ALT/SGPT) 2019-01-29 20:52:00* Test Item Value Reference Range Interpretation Comments Alanine Aminotransferase (ALT/SGPT) (test code = 1742-6) 32 0-55 [facility] ParkwayTotal Yytsqne7138-78-91 20:52:00* Test Item Value Reference Range Interpretation Comments Total Protein (test code = 2885-2) 7.8 6.5-8.1 [facility] ParkwayAlbumin2019-07-23 20:52:00* Test Item Value Reference Range Interpretation Comments Albumin (test code = 1751-7) 4.2 3.5-5.0 [facility] ParkwayGlobulin2019-07-23 20:52:00* Test Item Value Reference Range Interpretation Comments Globulin (test code = 18283-9) 3.6 2.3-3.5 H [facility] ParkwayAlbumin/Globulin Ndsbz8285-10-70 20:52:00 * Test Item Value Reference Range Interpretation Comments Albumin/Globulin Ratio (test code = 1759-0) 1.2 0.8-2.0 [facility] ParkwayAlkaline Urnyjyrcecr9386-57-61 20:52:00* Test Item Value Reference Range Interpretation Comments Alkaline Phosphatase (test code = 6768-6) 63 40-150 [facility] ParkwayCreatine Fdavxi8679-90-71 20:52:00* Test Item Value Reference Range Interpretation Comments Creatine Kinase (test code = 2157-6) 68 29-168 [facility] ParkwayProthrombin Gzfo3012-17-69 20:51:00* Test Item Value Reference Range Interpretation Comments Prothrombin Time (test code = 5902-2) 12.7 11.9-14.5 [facility] ParkwayProthromb Time International Ratio 2019-01-29 20:51:00* Test Item Value Reference Range Interpretation Comments Prothromb Time International Ratio (test code = 6301-6) 0.91 Oral Anticoagulant Therapy INR Values:1. Low Intensity Therapy 1.5 - 2.02 . Moderate Intensity Therapy 2.0 - 3.03. High Intensity Therapy(1) 2.5 - 3. 54. High Intensity Therapy(2) 3.0 - 4.05. Panic Value INR > 5.0 [facility] ParkwayActivated Partial Thromboplast Time 2019-01-29 20:51:00* Test Item Value Reference Range Interpretation Comments Activated Partial Thromboplast Time (test code = 98978-2) 23.5 23.8-35.5 L [facility] ParkwayWhite Blood Uxgpk5980-99-95 20:43:00* Test Item Value Reference Range Interpretation Comments White Blood Count (test code = 6690-2) 10.77 4.8-10.8 [facility] ParkwayRed Blood Puaoe3683-01-09 20:43:00* Test Item Value Reference Range Interpretation Comments Red Blood Count (test code = 789-8) 4.04 3.6-5.1 [facility] ParkwayHemoglobin2019-07-23 20:43:00* Test Item Value Reference Range Interpretation Comments Hemoglobin (test code = 32571-8) 13.4 12.0-16.0 [facility] ParkwayHematocrit2019-07-23 20:43:00* Test Item Value Reference Range Interpretation Comments Hematocrit (test code = 4544-3) 39.2 34.2-44.1 [facility] ParkwayMean Corpuscular Pxlpay0941-47-25 20:43:00* Test Item Value Reference Range Interpretation Comments Mean Corpuscular Volume (test code = 787-2) 97.0 81-99 [facility] ParkwayMean Corpuscular Mevwxdwlxa5758-39-62 20:43:00* Test Item Value Reference Range Interpretation Comments Mean Corpuscular Hemoglobin (test code = 785-6) 33.2 28-32 H [facility] ParkwayMean Corpuscular Hemoglobin Concent 2019-01-29 20:43:00* Test Item Value Reference Range Interpretation Comments Mean Corpuscular Hemoglobin Concent (test code = 786-4) 34.2 31-35 [facility] ParkwayRed Cell Distribution Wewsj5894-87-70 20:43:00* Test Item Value Reference Range Interpretation Comments Red Cell Distribution Width (test code = 80073-2) 12.3 11.7 -14.4 [facility] ParkwayPlatelet Lvupa8618-42-98 20:43:00* Test Item Value Reference Range Interpretation Comments Platelet Count (test code = 777-3) 295 140-360 [facility] ParkwayNeutrophils (%) (Auto)2019-01-29 20:43:00 * Test Item Value Reference Range Interpretation Comments Neutrophils (%) (Auto) (test code = 60266-6) 70.4 38.7-80.0 [facility] ParkwayLymphocytes (%) (Auto)2019-01-29 20:43:00 * Test Item Value Reference Range Interpretation Comments Lymphocytes (%) (Auto) (test code = 736-9) 18.5 18.0-39.1 [facility] ParkwayMonocytes (%) (Auto)2019-01-29 20:43:00* Test Item Value Reference Range Interpretation Comments Monocytes (%) (Auto) (test code = 5905-5) 9.4 4.4-11.3 [facility] ParkwayEosinophils (%) (Auto)2019-01-29 20:43:00 * Test Item Value Reference Range Interpretation Comments Eosinophils (%) (Auto) (test code = 713-8) 0.7 0.0-6.0 [facility] ParkwayBasophils (%) (Auto)2019-01-29 20:43:00* Test Item Value Reference Range Interpretation Comments Basophils (%) (Auto) (test code = 706-2) 0.5 0.0-1.0 [facility] ParkwayIM GRANULOCYTES %2019-01-29 20:43:00* Test Item Value Reference Range Interpretation Comments IM GRANULOCYTES % (test code = IM GRANULOCYTES %) 0.5 0.0- 1.0 [facility] ParkwayNeutrophils # (Auto)2019-01-29 20:43:00* Test Item Value Reference Range Interpretation Comments Neutrophils # (Auto) (test code = 751-8) 7.6 2.1-6.9 H [facility] ParkwayLymphocytes # (Auto)2019-01-29 20:43:00* Test Item Value Reference Range Interpretation Comments Lymphocytes # (Auto) (test code = 56937-5) 2.0 1.0-3.2 [facility] ParkwayMonocytes # (Auto)2019-01-29 20:43:00* Test Item Value Reference Range Interpretation Comments Monocytes # (Auto) (test code = 742-7) 1.0 0.2-0.8 H [facility] ParkwayEosinophils # (Auto)2019-01-29 20:43:00* Test Item Value Reference Range Interpretation Comments Eosinophils # (Auto) (test code = 711-2) 0.1 0.0-0.4 [facility] ParkwayBasophils # (Auto)2019-01-29 20:43:00* Test Item Value Reference Range Interpretation Comments Basophils # (Auto) (test code = 704-7) 0.1 0.0-0.1 [facility] ParkwayAbsolute Immature Granulocyte (auto 2019-01-29 20:43:00* Test Item Value Reference Range Interpretation Comments Absolute Immature Granulocyte (auto (aury t code = Absolute Immature Granulocyte (auto) 0.05 0-0.1 [facility] ParkwayCT BRAIN DB3298-34-98 23:37:00 [address] [address] Patient Name: LADONNA DAN MR #: [id number] : 1945 Age/Sex: 72/F Req #: [id number] Adm Physician: Ordered by: NATE GOMEZ MD Report #: [id number] Location: ER Room/Bed: Procedure: [id number] CT/CT BRAIN WO Exam Date: 07/13/18 Exam Time: 2 222 REPORT STATUS: Signed Histor y:Extreme dizziness Comparison studies:None Technique: Axial images wer e obtained from the skull base to the vertex. Coronal and sagittal images buzz nstructed from the axial data. Intravenous contrast: None Dose modulation, i terative reconstruction, and/or weight based adjustment of the mA/kV was utili zed to reduce the radiation dose to as low as reasonably achievable. Find ings: Scalp/skull: No abnormalities. Small subcutaneous calcifications a t the left supra soft tissues. Extra-axial spaces: No masses. No flui d collections. Brain sulci: Mildly prominent. Ventricles: Mild compensato ry dilatation. No hydrocephalus. Parenchyma: Scattered small hypodensiti es in the supratentorial white matter are small vessel ischemic changes. No ma sses, hemorrhage, acute or chronic cortical vascular insults. Sellar/supr asellar region: No abnormalities. Craniocervical junction: Patent foramen magn um. No Chiari one malformation. Incidental findings: Atherosclerotic daniel cifications in the carotid siphons . Impression: No acute abnormalitie s. Chronic findings: 1. Mild generalized volume loss. 2. Mild suprate ntorial white matter small vessel ischemic changes. Signed by: DR Dale Wick M.D. on 07/13/2018 11:40 PM Dictated By: DALE OCHOA MD 2340 Transcribed By: MERI on 07/13/18 2340 COPY TO: NATE GOMEZ MD Urine [id number] 20:23:00* Test Item Value Reference Range Interpretation Comments Urine WBC (test code = 5821-4) NONE 0-5 [facility] [id number] 20:23:00* Test Item Value Reference Range Interpretation Comments Urine RBC (test code = 52165-7) NONE 0-5 [facility]way[facility] Cadlwaqv7736-76-67 20:23:00* Test Item Value Reference Range Interpretation Comments Urine Bacteria (test code = 22158-1) NONE NONE [facility] Epithelial Ccygf3982-62-62 20:23:00 * Test Item Value Reference Range Interpretation Comments Urine Epithelial Cells (test code = 05318-5) MANY NONE [facility] Transitional Epithelial Cells 2018-07-13 20:23:00* Test Item Value Reference Range Interpretation Comments Urine Transitional Epithelial Cells (test code = 8249-5) MODERATE NONE H [facility]way[facility] Renal Epithelial Gjjqt4945-48-44 20:23:00* Test Item Value Reference Range Interpretation Comments Urine Renal Epithelial Cells (test code = 72223-5) FEW NON E H [facility]way[facility] Transitional Epithelial Cells 2018-07-13 20:23:00* Test Item Value Reference Range Interpretation Comments Urine Transitional Epithelial Cells (test code = 8249-5) MODERATE NONE H [facility]way[facility] Renal Epithelial Haedm0947-08-32 20:23:00* Test Item Value Reference Range Interpretation Comments Urine Renal Epithelial Cells (test code = 42821-1) FEW NON E H [facility]wayU[facility] Dzmho5530-14-55 20:12:00* Test Item Value Reference Range Interpretation Comments Urine Color (test code = 5778-6) YELLOW YELLOW [facility] Cxvovvj4039-86-63 20:12:00* Test Item Value Reference Range Interpretation Comments Urine Clarity (test code = 32868-3) CLEAR CLEAR [facility]wayU[facility] Specific Fdxvhkh3335-71-64 20:12:00 * Test Item Value Reference Range Interpretation Comments Urine Specific [place] (test code = 5811-5) 1.010 1.010-1.02 5 [facility]wayU[facility] vA9091-09-89 20:12:00* Test Item Value Reference Range Interpretation Comments Urine pH (test code = 54806-4) 6 5-7 [facility] Leukocyte Jyownrio3255-99-13 20:12:00* Test Item Value Reference Range Interpretation Comments Urine Leukocyte Esterase (test code = 5799-2) TRACE NEGATIVE H [facility]wayU[facility] Cwtzhqo1409-69-52 20:12:00* Test Item Value Reference Range Interpretation Comments Urine Nitrite (test code = 83555-3) NEGATIVE NEGATIVE [facility]wayU[facility] Ubptlqu8539-11-75 20:12:00* Test Item Value Reference Range Interpretation Comments Urine Protein (test code = 5804-0) NEGATIVE NEGATIVE [facility]way[facility] Glucose (UA)2018-07-13 20:12:00* Test Item Value Reference Range Interpretation Comments Urine Glucose (UA) (test code = 2349-9) NEGATIVE NEGATIVE [facility]wayU[facility] Qyroppg4971-23-22 20:12:00* Test Item Value Reference Range Interpretation Comments Urine Ketones (test code = 04595-5) NEGATIVE NEGATIVE [facility]wayU[facility] Acwjenbpmdzs3269-02-07 20:12:00* Test Item Value Reference Range Interpretation Comments Urine Urobilinogen (test code = 93542-2) 0.2 0.2-1 [facility]wayU[facility] Jmlosofur8933-65-39 20:12:00* Test Item Value Reference Range Interpretation Comments Urine Bilirubin (test code = 1978-6) NEGATIVE NEGATIVE [facility] ParkwayU[facility] Fixmb4526-60-12 20:12:00* Test Item Value Reference Range Interpretation Comments Urine Blood (test code = 34901-7) NEGATIVE NEGATIVE [facility] ParkwayCHEST SINGLE (PORTABLE)2018-07-13 19:40:00 [place] [address] Patient Name: LADONNA DAN MR #: [id number] : 1945 Age/Sex: 72/F Req #: [id number] Adm Physician: Ordered by: NANDO ANGEL MD Report #: [id number] Location: ER Room/Bed: Procedure: [id number] DX/CHEST SINGLE (PORTABLE) Exam Date: 07/13/18 Saji mcleod Time: 1824 REPORT STATUS: Signed EXAMINATION: CHEST SINGLE (PORTABLE) INDICATION: CHEST APPLE N [id number] 1825 Y COMPARISON: 01/12/2018 FINDINGS: AP vi ew TUBES and LINES: None. LUNGS: Lungs are well inflated. Again seen right upper lobe nodular density, likely a calcified granuloma There is no evidence of pneumonia or pulmonary edema. PLEURA: No pleural effusio n or pneumothorax. HEART AND MEDIASTINUM: The cardiomediastinal silhouette is unremarkable. BONES AND SOFT TISSUES: No acute osseous lesion. So ft tissues are unremarkable. UPPER ABDOMEN: No free air under the diaphra gm. IMPRESSION: No acute thoracic abnormality. Signed by: Dr. Nicholas Chambers MD on 07/13/2018 7:42 PM Dictated By: ANTON CHAMBERS MD Elect ronically Signed By: ANTON CHAMBERS MD on 07/13/181941 Transcribed By: MERI on 07/13/181941 COPY TO: NANDO ANGEL MD B-Type Natriuretic Qnutkjy4828-13-51 19:06:00* Test Item Value Reference Range Interpretation Comments B-Type Natriuretic Peptide (test code = 71477-4) 23.6 0-100 [facility] ParkwayB-Type Natriuretic Fdkdoou4993-71-17 19:06:00* Test Item Value Reference Range Interpretation Comments B-Type Natriuretic Peptide (test code = 86264-1) 23.6 0-100 [facility] ParkwayCreatine Kinase [id number] 18:57:00* Test Item Value Reference Range Interpretation Comments Creatine Kinase MB (test code = 08919-8) 1.50 0-5.0 [facility] ParkwayTroponin E4316-85-96 18:57:00* Test Item Value Reference Range Interpretation Comments Troponin I (test code = LPQ4874) 0.011 0-0.300 [facility] Tomballodium Rqidb4911-32-88 18:50:00* Test Item Value Reference Range Interpretation Comments Sodium Level (test code = 2951-2) 130 136-145 L [facility] ParkwayPotassium Jxdbh7702-96-37 18:50:00* Test Item Value Reference Range Interpretation Comments Potassium Level (test code = 2823-3) 3.6 3.5-5.1 [facility] ParkwayChloride Tthwn8282-99-51 18:50:00* Test Item Value Reference Range Interpretation Comments Chloride Level (test code = 2075-0) 94 98-107 L [facility] ParkwayCarbon Dioxide Ohytn7532-87-57 18:50:00* Test Item Value Reference Range Interpretation Comments Carbon Dioxide Level (test code = 2028-9) 23 22-29 [facility] ParkwayAnion Tpv9814-14-60 18:50:00* Test Item Value Reference Range Interpretation Comments Anion Gap (test code = 88541-7) 16.6 8-16 H [facility] ParkwayBlood Urea Ikbsqohx5873-35-53 18:50:00* Test Item Value Reference Range Interpretation Comments Blood Urea Nitrogen (test code = 3094-0) 10 7-26 [facility] ParkwayCreatinine2019-01-04 18:50:00* Test Item Value Reference Range Interpretation Comments Creatinine (test code = 2160-0) 0.90 0.57-1.11 [facility] ParkwayBUN/Creatinine Cogcb6875-60-08 18:50:00* Test Item Value Reference Range Interpretation Comments BUN/Creatinine Ratio (test code = 3097-3) 11 6-25 [facility] ParkwayEstimat Glomerular Filtration Rate 2018-07-13 18:50:00* Test Item Value Reference Range Interpretation Comments Estimat Glomerular Filtration Rate (test code = 860538125) > 60 >60 Ranges were taken from the National Kidney Disease Education Program and the [facility] literature.Reference ranges:60 or greater: Gcdvhy04-98 ( for 3 consecutive months): Chronic kidney disease 15 or less: Kidney failureWise Health Surgical Hospital at ParkwayGlucose Avulj0766-13-86 18:50:00* Test Item Value Reference Range Interpretation Comments Glucose Level (test code = MTF0868) 98 74-118 [facility] ParkwayCalcium Angvk4317-26-55 18:50:00* Test Item Value Reference Range Interpretation Comments Calcium Level (test code = 75065-4) 9.5 8.4-10.2 [facility] ParkwayTotal Xayeeshno0240-55-49 18:50:00* Test Item Value Reference Range Interpretation Comments Total Bilirubin (test code = 1975-2) 0.4 0.2-1.2 [facility] ParkwayAspartate Amino Transf (AST/SGOT) 2018-07-13 18:50:00* Test Item Value Reference Range Interpretation Comments Aspartate Amino Transf (AST/SGOT) (test code = Aspartate Amino Transf (AST/SGOT)) 27 5-34 [facility] ParkwayAlanine Aminotransferase (ALT/SGPT) 2018-07-13 18:50:00* Test Item Value Reference Range Interpretation Comments Alanine Aminotransferase (ALT/SGPT) (test code = 1742-6) 46 0-55 [facility] ParkwayTotal Bylbjmp5531-27-65 18:50:00* Test Item Value Reference Range Interpretation Comments Total Protein (test code = 2885-2) 7.6 6.5-8.1 [facility] ParkwayAlbumin2019-01-04 18:50:00* Test Item Value Reference Range Interpretation Comments Albumin (test code = 1751-7) 4.2 3.5-5.0 [facility] ParkwayGlobulin2019-01-04 18:50:00* Test Item Value Reference Range Interpretation Comments Globulin (test code = 79394-5) 3.4 2.3-3.5 [facility] ParkwayAlbumin/Globulin Vskef6573-52-31 18:50:00 * Test Item Value Reference Range Interpretation Comments Albumin/Globulin Ratio (test code = 1759-0) 1.2 0.8-2.0 [facility] ParkwayAlkaline Eeuqymawztb5152-62-25 18:50:00* Test Item Value Reference Range Interpretation Comments Alkaline Phosphatase (test code = 6768-6) 57 40-150 [facility] ParkwayCreatine Zgbyxf2350-11-86 18:50:00* Test Item Value Reference Range Interpretation Comments Creatine Kinase (test code = 2157-6) 52 29-168 [facility] ParkwayProthrombin Pqar2851-71-70 18:42:00* Test Item Value Reference Range Interpretation Comments Prothrombin Time (test code = 5902-2) 12.5 11.9-14.5 [facility] ParkwayProthromb Time International Ratio 2018-07-13 18:42:00* Test Item Value Reference Range Interpretation Comments Prothromb Time International Ratio (test code = 6301-6) 0.86 Oral Anticoagulant Therapy INR Values:1. Low Intensity Therapy 1.5 - 2.02 . Moderate Intensity Therapy 2.0 - 3.03. High Intensity Therapy(1) 2.5 - 3. 54. High Intensity Therapy(2) 3.0 - 4.05. Panic Value INR > 5.0 [facility] ParkwayActivated Partial Thromboplast Time 2018-07-13 18:42:00* Test Item Value Reference Range Interpretation Comments Activated Partial Thromboplast Time (test code = 22537-9) 24.9 23.8-35.5 [facility] ParkwayWhite Blood Asuou5436-30-71 18:36:00* Test Item Value Reference Range Interpretation Comments White Blood Count (test code = 6690-2) 6.69 4.8-10.8 [facility] ParkwayRed Blood Vksxg2378-52-41 18:36:00* Test Item Value Reference Range Interpretation Comments Red Blood Count (test code = 789-8) 3.89 3.6-5.1 [facility] ParkwayHemoglobin2019-01-04 18:36:00* Test Item Value Reference Range Interpretation Comments Hemoglobin (test code = 27509-6) 13.2 12.0-16.0 [facility] ParkwayHematocrit2019-01-04 18:36:00* Test Item Value Reference Range Interpretation Comments Hematocrit (test code = 4544-3) 37.8 34.2-44.1 [facility] ParkwayMean Corpuscular Lnyrlp0252-53-61 18:36:00* Test Item Value Reference Range Interpretation Comments Mean Corpuscular Volume (test code = 787-2) 97.2 81-99 [facility] ParkwayMean Corpuscular Jumlytfbev1679-75-39 18:36:00* Test Item Value Reference Range Interpretation Comments Mean Corpuscular Hemoglobin (test code = 785-6) 33.9 28-32 H [facility] ParkwayMean Corpuscular Hemoglobin Concent 2018-07-13 18:36:00* Test Item Value Reference Range Interpretation Comments Mean Corpuscular Hemoglobin Concent (test code = 786-4) 34.9 31-35 [facility] ParkwayRed Cell Distribution Tjgmd3954-40-72 18:36:00* Test Item Value Reference Range Interpretation Comments Red Cell Distribution Width (test code = 05395-1) 12.7 11.7 -14.4 [facility] ParkwayPlatelet Khlog1649-71-76 18:36:00* Test Item Value Reference Range Interpretation Comments Platelet Count (test code = 777-3) 257 140-360 [facility] ParkwayNeutrophils (%) (Auto)2018-07-13 18:36:00 * Test Item Value Reference Range Interpretation Comments Neutrophils (%) (Auto) (test code = 58739-8) 58.2 38.7-80.0 [facility] ParkwayLymphocytes (%) (Auto)2018-07-13 18:36:00 * Test Item Value Reference Range Interpretation Comments Lymphocytes (%) (Auto) (test code = 736-9) 30.8 18.0-39.1 [facility] ParkwayMonocytes (%) (Auto)2018-07-13 18:36:00* Test Item Value Reference Range Interpretation Comments Monocytes (%) (Auto) (test code = 5905-5) 9.6 4.4-11.3 [facility] ParkwayEosinophils (%) (Auto)2018-07-13 18:36:00 * Test Item Value Reference Range Interpretation Comments Eosinophils (%) (Auto) (test code = 713-8) 0.7 0.0-6.0 [facility] ParkwayBasophils (%) (Auto)2018-07-13 18:36:00* Test Item Value Reference Range Interpretation Comments Basophils (%) (Auto) (test code = 706-2) 0.4 0.0-1.0 [facility] ParkwayIM GRANULOCYTES %2018-07-13 18:36:00* Test Item Value Reference Range Interpretation Comments IM GRANULOCYTES % (test code = IM GRANULOCYTES %) 0.3 0.0- 1.0 [facility] ParkwayNeutrophils # (Auto)2018-07-13 18:36:00* Test Item Value Reference Range Interpretation Comments Neutrophils # (Auto) (test code = 751-8) 3.9 2.1-6.9 [facility] ParkwayLymphocytes # (Auto)2018-07-13 18:36:00* Test Item Value Reference Range Interpretation Comments Lymphocytes # (Auto) (test code = 45810-0) 2.1 1.0-3.2 [facility] ParkwayMonocytes # (Auto)2018-07-13 18:36:00* Test Item Value Reference Range Interpretation Comments Monocytes # (Auto) (test code = 742-7) 0.6 0.2-0.8 [facility] ParkwayEosinophils # (Auto)2018-07-13 18:36:00* Test Item Value Reference Range Interpretation Comments Eosinophils # (Auto) (test code = 711-2) 0.1 0.0-0.4 [facility] ParkwayBasophils # (Auto)2018-07-13 18:36:00* Test Item Value Reference Range Interpretation Comments Basophils # (Auto) (test code = 704-7) 0.0 0.0-0.1 [facility] ParkwayAbsolute Immature Granulocyte (auto 2018-07-13 18:36:00* Test Item Value Reference Range Interpretation Comments Absolute Immature Granulocyte (auto (aury t code = Absolute Immature Granulocyte (auto) 0.02 0-0.1 [facility] Tomballodium Kohtr4673-02-65 05:59:00* Test Item Value Reference Range Interpretation Comments Sodium Level (test code = 2951-2) 140 136-145 [facility] ParkwayPotassium Nvchs4552-26-28 05:59:00* Test Item Value Reference Range Interpretation Comments Potassium Level (test code = 2823-3) 3.8 3.5-5.1 [facility] ParkwayChloride Pwdbj5216-94-94 05:59:00* Test Item Value Reference Range Interpretation Comments Chloride Level (test code = 2075-0) 102 98-107 [facility] ParkwayCarbon Dioxide Cjewh7279-00-65 05:59:00* Test Item Value Reference Range Interpretation Comments Carbon Dioxide Level (test code = 2028-9) 27 22-29 [facility] ParkwayAnion Fxi6157-72-25 05:59:00* Test Item Value Reference Range Interpretation Comments Anion Gap (test code = 55258-1) 14.8 8-16 [facility] ParkwayBlood Urea Pyacgleq5107-72-37 05:59:00* Test Item Value Reference Range Interpretation Comments Blood Urea Nitrogen (test code = 3094-0) 12 7-26 [facility] ParkwayCreatinine2018-07-09 05:59:00* Test Item Value Reference Range Interpretation Comments Creatinine (test code = 2160-0) 0.98 0.57-1.11 [facility] ParkwayBUN/Creatinine Mjmgr9299-34-46 05:59:00* Test Item Value Reference Range Interpretation Comments BUN/Creatinine Ratio (test code = 3097-3) 12 6-25 [facility] ParkwayEstimat Glomerular Filtration Rate 2018-01-15 05:59:00* Test Item Value Reference Range Interpretation Comments Estimat Glomerular Filtration Rate (test code = 27202-9) 55 >60 L Ranges were taken from the National Kidney Disease Education Program and the [facility] Foundation literature.Reference ranges:60 or greater: Nkptij29-59 ( for 3 consecutive months): Chronic kidney disease 15 or less: Kidney failureWise Health Surgical Hospital at ParkwayGlucose Mbvuq8608-46-06 05:59:00* Test Item Value Reference Range Interpretation Comments Glucose Level (test code = UHG0666) 97 74-118 [facility] ParkwayCalcium Zvmll5600-13-43 05:59:00* Test Item Value Reference Range Interpretation Comments Calcium Level (test code = 80554-9) 10.2 8.4-10.2 [facility] ParkwayWhite Blood Ufyvh0587-78-22 05:33:00* Test Item Value Reference Range Interpretation Comments White Blood Count (test code = 6690-2) 8.24 4.8-10.8 [facility] ParkwayRed Blood Frwzg4100-68-99 05:33:00* Test Item Value Reference Range Interpretation Comments Red Blood Count (test code = 789-8) 4.01 3.6-5.1 [facility] ParkwayHemoglobin2018-07-09 05:33:00* Test Item Value Reference Range Interpretation Comments Hemoglobin (test code = 67975-7) 13.6 12.0-16.0 [facility] ParkwayHematocrit2018-07-09 05:33:00* Test Item Value Reference Range Interpretation Comments Hematocrit (test code = 4544-3) 40.0 34.2-44.1 [facility] ParkwayMean Corpuscular Vbzpet8141-71-49 05:33:00* Test Item Value Reference Range Interpretation Comments Mean Corpuscular Volume (test code = 787-2) 99.8 81-99 H [facility] ParkwayMean Corpuscular Tiojibknma7189-00-39 05:33:00* Test Item Value Reference Range Interpretation Comments Mean Corpuscular Hemoglobin (test code = 785-6) 33.9 28-32 H [facility] ParkwayMean Corpuscular Hemoglobin Concent 2018-01-15 05:33:00* Test Item Value Reference Range Interpretation Comments Mean Corpuscular Hemoglobin Concent (test code = 786-4) 34.0 31-35 [facility] ParkwayRed Cell Distribution Fnkwn4728-15-16 05:33:00* Test Item Value Reference Range Interpretation Comments Red Cell Distribution Width (test code = 61208-6) 12.7 11.7 -14.4 [facility] ParkwayPlatelet Aivtn8709-13-46 05:33:00* Test Item Value Reference Range Interpretation Comments Platelet Count (test code = 777-3) 301 140-360 [facility] ParkwayNeutrophils (%) (Auto)2018-01-15 05:33:00 * Test Item Value Reference Range Interpretation Comments Neutrophils (%) (Auto) (test code = 39216-1) 50.6 38.7-80.0 [facility] ParkwayLymphocytes (%) (Auto)2018-01-15 05:33:00 * Test Item Value Reference Range Interpretation Comments Lymphocytes (%) (Auto) (test code = 736-9) 33.7 18.0-39.1 [facility] ParkwayMonocytes (%) (Auto)2018-01-15 05:33:00* Test Item Value Reference Range Interpretation Comments Monocytes (%) (Auto) (test code = 5905-5) 13.1 4.4-11.3 H [facility] ParkwayEosinophils (%) (Auto)2018-01-15 05:33:00 * Test Item Value Reference Range Interpretation Comments Eosinophils (%) (Auto) (test code = 713-8) 1.7 0.0-6.0 [facility] ParkwayBasophils (%) (Auto)2018-01-15 05:33:00* Test Item Value Reference Range Interpretation Comments Basophils (%) (Auto) (test code = 706-2) 0.5 0.0-1.0 [facility] ParkwayIM GRANULOCYTES %2018-01-15 05:33:00* Test Item Value Reference Range Interpretation Comments IM GRANULOCYTES % (test code = IM GRANULOCYTES %) 0.4 0.0- 1.0 [facility] ParkwayNeutrophils # (Auto)2018-01-15 05:33:00* Test Item Value Reference Range Interpretation Comments Neutrophils # (Auto) (test code = 751-8) 4.2 2.1-6.9 [facility] ParkwayLymphocytes # (Auto)2018-01-15 05:33:00* Test Item Value Reference Range Interpretation Comments Lymphocytes # (Auto) (test code = 65826-6) 2.8 1.0-3.2 [facility] ParkwayMonocytes # (Auto)2018-01-15 05:33:00* Test Item Value Reference Range Interpretation Comments Monocytes # (Auto) (test code = 742-7) 1.1 0.2-0.8 H [facility] ParkwayEosinophils # (Auto)2018-01-15 05:33:00* Test Item Value Reference Range Interpretation Comments Eosinophils # (Auto) (test code = 711-2) 0.1 0.0-0.4 [facility] ParkwayBasophils # (Auto)2018-01-15 05:33:00* Test Item Value Reference Range Interpretation Comments Basophils # (Auto) (test code = 704-7) 0.0 0.0-0.1 [facility] ParkwayAbsolute Immature Granulocyte (auto 2018-01-15 05:33:00* Test Item Value Reference Range Interpretation Comments Absolute Immature Granulocyte (auto (aury t code = Absolute Immature Granulocyte (auto) 0.03 0-0.1 [facility] ParkwayCreatine Kinase TP8814-78-13 11:36:00* Test Item Value Reference Range Interpretation Comments Creatine Kinase MB (test code = 64369-1) 1.20 0-5.0 [facility] ParkwayTroponin O7009-50-78 11:36:00* Test Item Value Reference Range Interpretation Comments Troponin I (test code = EHQ1208) -0.001 0-0.300 [facility] ParkwayCreatine Jdvriy6147-13-72 11:31:00* Test Item Value Reference Range Interpretation Comments Creatine Kinase (test code = 2157-6) 51 29-168 [facility] ParkwayCTA YRQV5430-56-14 02:14:00 [place] [address] Patient Name: LADONNA DAN MR #: [id number] : 1945 Age/Sex: 72/F Req #: [id number] Adm Physician: WOODROW ENCINAS MD Ordered by: GISELLE FAYE MD Report #: [id number] Loca tion: MED/SURG3 Room/Bed: 293-1 Procedure: [id number] CT/CTA NECK Exam Date: 01/13/18 Exam Time: 0122 REPORT STATUS: Signed ADDENDUM #1 Dose modulation , iterative reconstruction, and/or weight based adjustment of the mA/kV was ut ilized to reduce the radiation dose to as low as reasonably achievable. S igned by: DR Dale Wick M.D. on 03/06/2018 7:49 PM ORIGINAL REPORT History: Dizziness Comparison studies:None Techniqu e: Axial images were obtained from the thoracic inlet. Coronal and sagittal images reconstructed from the axial data. Intravenous contrast: 100 cc of Omn ipaque 300. Findings: Percentage of stenosis will be based on the NASC ET criteria. Aortic arch and major vessels: Patent. No abnormalities. Common carotid arteries: Patent. No abnormalities. Right internal carot id artery: Patent. Nonstenotic atherosclerotic calcifications. Left inter nal carotid artery: Patent. Nonstenotic atherosclerotic calcifications. R ight vertebral artery: Patent. No abnormalities. Left vertebral artery: Patent. No abnormalities. Moderate right foraminal narrowing at C5-6 secon rolly to facet and uncinate process hypertrophy. IMPRESSION: No he modynamically significant stenosis. Signed by: Harvinder Kilpatrick on 01/13/2018 2:20 AM Dictated By: DALE OCHOA MD 194 Transcribed By: MERI on 0220 COPY TO: GISELLE FAYE MD Urine [id number] 13:34:00* Test Item Value Reference Range Interpretation Comments Urine WBC (test code = 5821-4) 6-10 0-5 H [facility] JWG8733-88-11 13:34:00* Test Item Value Reference Range Interpretation Comments Urine RBC (test code = 30308-7) 11-20 0-5 H [facility]wayU[facility] Txzstnsi9642-19-92 13:34:00* Test Item Value Reference Range Interpretation Comments Urine Bacteria (test code = 40370-1) RARE NONE [facility]way[facility] Epithelial Ydegu1501-67-66 13:34:00 * Test Item Value Reference Range Interpretation Comments Urine Epithelial Cells (test code = 17799-2) FEW NONE [facility]wayU[facility] Yqhts5329-38-78 13:23:00* Test Item Value Reference Range Interpretation Comments Urine Color (test code = 5778-6) YELLOW YELLOW [facility]wayU[facility] Kiivokf6508-37-41 13:23:00* Test Item Value Reference Range Interpretation Comments Urine Clarity (test code = 10492-6) CLEAR CLEAR [facility]wayU[facility] Specific Drdqism2044-94-54 13:23:00 * Test Item Value Reference Range Interpretation Comments Urine Specific [place] (test code = 5811-5) 1.005 1.010-1.02 5 L [facility]wayU[facility] gV2079-90-17 13:23:00* Test Item Value Reference Range Interpretation Comments Urine pH (test code = 21389-5) 7 5-7 [facility] Leukocyte Dyfwmbxo8352-20-22 13:23:00* Test Item Value Reference Range Interpretation Comments Urine Leukocyte Esterase (test code = 5799-2) NEGATIVE NEGATIVE [facility]way[facility] Zjgnlsc5183-13-94 13:23:00* Test Item Value Reference Range Interpretation Comments Urine Nitrite (test code = 51273-6) NEGATIVE NEGATIVE [facility]wayU[facility] Qtejegx4651-94-04 13:23:00* Test Item Value Reference Range Interpretation Comments Urine Protein (test code = 5804-0) NEGATIVE NEGATIVE [facility]wayU[facility] Glucose (UA)2018-01-12 13:23:00* Test Item Value Reference Range Interpretation Comments Urine Glucose (UA) (test code = 2349-9) NEGATIVE NEGATIVE [facility]wayU[facility] Tldophx8910-64-04 13:23:00* Test Item Value Reference Range Interpretation Comments Urine Ketones (test code = 61448-0) NEGATIVE NEGATIVE [facility]wayU[facility] Hwpuhltzvlaf0878-97-32 13:23:00* Test Item Value Reference Range Interpretation Comments Urine Urobilinogen (test code = 16541-7) 0.2 0.2-1 [facility]wayU[facility] Wjbwhgcjv7038-48-88 13:23:00* Test Item Value Reference Range Interpretation Comments Urine Bilirubin (test code = 1978-6) NEGATIVE NEGATIVE [facility]wayU[facility] Czlfz3448-90-20 13:23:00* Test Item Value Reference Range Interpretation Comments Urine Blood (test code = 82190-9) 4+ NEGATIVE H [facility] ParkwayU[facility] Transitional Epithelial Cells 2018-01-12 12:13:00* Test Item Value Reference Range Interpretation Comments Urine Transitional Epithelial Cells (test code = 8249-5) FEW NONE H [facility]wayUrine Amorphous Beoeyunc7250-02-45 12:13:00* Test Item Value Reference Range Interpretation Comments Urine Amorphous Sediment (test code = 8246-1) RARE FEW [facility]wayU[facility] Amorphous Zeocdphk8746-36-60 12:13:00* Test Item Value Reference Range Interpretation Comments Urine Amorphous Sediment (test code = 8246-1) RARE FEW [facility] ParkwayB-Type Natriuretic Seumtav5105-47-43 12:10:00* Test Item Value Reference Range Interpretation Comments B-Type Natriuretic Peptide (test code = 23191-4) 164.0 0-100 H [facility] ParkwayCHEST SINGLE (PORTABLE)2018-01-12 12:08:00 [facility] [address] [place] [address] Patient Name: LADONNA DAN MR #: [id number] : 1945 Age/Sex: 72/F Req #: [id number] Adm Physician: Ordered by: ROSA SARABIA Report #: [id number] Location: ER Room/Bed: Procedure: [id number] DX/CHEST SINGLE (PORTABLE) Exam Date: Exam Time: REPORT STATUS: Signed PROCEDURE: A single AP view of the chest. COMPARISON: Chest radiograph 01/08/2018 INDICATIONS: NEAR SYNCOPE, SAME SYMPTOMS 4 DAYS AGO. FINDINGS: Lines/tubes: None. Lungs: The lungs are well inflated and c lear. Previously noted punctate right upper lung field density may represent a calcified granuloma or vessel en face. There is no evidence of pneumonia or pulmonary edema. Pleura: There is no pleural effusion or pneumothorax . Heart and mediastinum: Aortic arch calcifications. The heart and the mediastinum are otherwise unremarkable. Bones: No acute bony abnormality . IMPRESSION: No acute cardiopulmonary disease. Dictated by: Felipe Paz M.D. on 01/12/2018 at 12:08 Electronically approved by: Sukhwinder Paz M.D. on 01/12/2018 at 12:08 Dictated By: FELIPE PAZ MD 1208 Transcrib ed By: ELLEN on 01/12/18 1208 COPY TO: ROSA SARABIA Magnesium Gacvq2191-67-82 12:01:00* Test Item Value Reference Range Interpretation Comments Magnesium Level (test code = 91743-3) 1.5 1.3-2.1 [facility] ParkwayTotal Opvecyhfr7671-83-48 12:01:00* Test Item Value Reference Range Interpretation Comments Total Bilirubin (test code = 1975-2) 0.7 0.2-1.2 [facility] ParkwayAspartate Amino Transf (AST/SGOT) 2018-01-12 12:01:00* Test Item Value Reference Range Interpretation Comments Aspartate Amino Transf (AST/SGOT) (test code = Aspartate Amino Transf (AST/SGOT)) 36 5-34 H [facility] ParkwayAlanine Aminotransferase (ALT/SGPT) 2018-01-12 12:01:00* Test Item Value Reference Range Interpretation Comments Alanine Aminotransferase (ALT/SGPT) (test code = 1742-6) 41 0-55 [facility] ParkwayTotal Rxlfjsk7199-60-45 12:01:00* Test Item Value Reference Range Interpretation Comments Total Protein (test code = 2885-2) 7.8 6.5-8.1 [facility] ParkwayAlbumin2018-07-06 12:01:00* Test Item Value Reference Range Interpretation Comments Albumin (test code = 1751-7) 4.1 3.5-5.0 [facility] ParkwayGlobulin2018-07-06 12:01:00* Test Item Value Reference Range Interpretation Comments Globulin (test code = 32684-4) 3.7 2.3-3.5 H [facility] ParkwayAlbumin/Globulin Toaer1033-54-50 12:01:00 * Test Item Value Reference Range Interpretation Comments Albumin/Globulin Ratio (test code = 1759-0) 1.1 0.8-2.0 [facility] ParkwayAlkaline Rczlpxpxpzf1444-67-57 12:01:00* Test Item Value Reference Range Interpretation Comments Alkaline Phosphatase (test code = 6768-6) 56 40-150 [facility] ParkwayMagnesium Jbgtu8674-37-19 12:01:00* Test Item Value Reference Range Interpretation Comments Magnesium Level (test code = 11684-0) 1.5 1.3-2.1 [facility] ParkwayProthrombin Igyf6692-32-33 11:56:00* Test Item Value Reference Range Interpretation Comments Prothrombin Time (test code = 5902-2) 12.5 11.9-14.5 [facility] ParkwayProthromb Time International Ratio 2018-01-12 11:56:00* Test Item Value Reference Range Interpretation Comments Prothromb Time International Ratio (test code = 6301-6) 1.01 Oral Anticoagulant Therapy INR Values:1. Low Intensity Therapy 1.5 - 2.02 . Moderate Intensity Therapy 2.0 - 3.03. High Intensity Therapy(1) 2.5 - 3. 54. High Intensity Therapy(2) 3.0 - 4.05. Panic Value INR > 5.0 [facility] ParkwayActivated Partial Thromboplast Time 2018-01-12 11:56:00* Test Item Value Reference Range Interpretation Comments Activated Partial Thromboplast Time (test code = 53227-4) 25.9 23.8-35.5 [facility] ParkwayCreatine Kinase KK5844-89-79 07:55:00* Test Item Value Reference Range Interpretation Comments Creatine Kinase MB (test code = 71681-6) 1.50 0-5.0 [facility] ParkwayTroponin Y5060-89-56 07:55:00* Test Item Value Reference Range Interpretation Comments Troponin I (test code = VXZ9779) -0.001 0-0.300 [facility] ParkwayCreatine Xefudg1961-07-28 07:47:00* Test Item Value Reference Range Interpretation Comments Creatine Kinase (test code = 2157-6) 60 29-168 [facility] Tomballodium Jwvxo2075-21-97 07:31:00* Test Item Value Reference Range Interpretation Comments Sodium Level (test code = 2951-2) 140 136-145 [facility] ParkwayPotassium Nunjf4200-31-53 07:31:00* Test Item Value Reference Range Interpretation Comments Potassium Level (test code = 2823-3) 4.1 3.5-5.1 [facility] ParkwayChloride Rhxhk5492-48-72 07:31:00* Test Item Value Reference Range Interpretation Comments Chloride Level (test code = 2075-0) 108 98-107 H [facility] ParkwayCarbon Dioxide Vbciz0075-68-58 07:31:00* Test Item Value Reference Range Interpretation Comments Carbon Dioxide Level (test code = 2028-9) 26 22-29 [facility] ParkwayAnion Cwc3454-78-70 07:31:00* Test Item Value Reference Range Interpretation Comments Anion Gap (test code = 61169-1) 10.1 8-16 [facility] ParkwayBlood Urea Sfoowizy3756-94-70 07:31:00* Test Item Value Reference Range Interpretation Comments Blood Urea Nitrogen (test code = 3094-0) 8 7-26 [facility] ParkwayCreatinine2018-07-03 07:31:00* Test Item Value Reference Range Interpretation Comments Creatinine (test code = 2160-0) 0.80 0.57-1.11 [facility] ParkwayBUN/Creatinine Mhilw0993-09-12 07:31:00* Test Item Value Reference Range Interpretation Comments BUN/Creatinine Ratio (test code = 3097-3) 10 6-25 [facility] ParkwayEstimat Glomerular Filtration Rate 2018-01-09 07:31:00* Test Item Value Reference Range Interpretation Comments Estimat Glomerular Filtration Rate (test code = 24799-4) 60- >60 Ranges were taken from the National Kidney Disease Education Program and the [facility] literature.Reference ranges:60 or greater: Kpanvn62-63 ( for 3 consecutive months): Chronic kidney disease 15 or less: Kidney failureWise Health Surgical Hospital at ParkwayGlucose Oqxuh7389-82-30 07:31:00* Test Item Value Reference Range Interpretation Comments Glucose Level (test code = VBZ5326) 104 74-118 [facility] ParkwayCalcium Agwts2913-39-63 07:31:00* Test Item Value Reference Range Interpretation Comments Calcium Level (test code = 48908-3) 9.0 8.4-10.2 [facility] ParkwayTotal Tljmsxcyw8855-58-98 07:31:00* Test Item Value Reference Range Interpretation Comments Total Bilirubin (test code = 1975-2) 0.3 0.2-1.2 [facility] ParkwayAspartate Amino Transf (AST/SGOT) 2018-01-09 07:31:00* Test Item Value Reference Range Interpretation Comments Aspartate Amino Transf (AST/SGOT) (test code = Aspartate Amino Transf (AST/SGOT)) 18 5-34 [facility] ParkwayAlanine Aminotransferase (ALT/SGPT) 2018-01-09 07:31:00* Test Item Value Reference Range Interpretation Comments Alanine Aminotransferase (ALT/SGPT) (test code = 1742-6) 26 0-55 [facility] ParkwayTotal Fmmmrud3210-76-73 07:31:00* Test Item Value Reference Range Interpretation Comments Total Protein (test code = 2885-2) 6.2 6.5-8.1 L [facility] ParkwayAlbumin2018-07-03 07:31:00* Test Item Value Reference Range Interpretation Comments Albumin (test code = 1751-7) 3.4 3.5-5.0 L [facility] ParkwayGlobulin2018-07-03 07:31:00* Test Item Value Reference Range Interpretation Comments Globulin (test code = 65643-4) 2.8 2.3-3.5 [facility] ParkwayAlbumin/Globulin Koysk4108-29-13 07:31:00 * Test Item Value Reference Range Interpretation Comments Albumin/Globulin Ratio (test code = 1759-0) 1.2 0.8-2.0 [facility] ParkwayAlkaline Woimxuopysm0328-44-10 07:31:00* Test Item Value Reference Range Interpretation Comments Alkaline Phosphatase (test code = 6768-6) 57 40-150 [facility] ParkwayWhite Blood Kgrzr0286-53-29 06:57:00* Test Item Value Reference Range Interpretation Comments White Blood Count (test code = 6690-2) 7.30 4.8-10.8 [facility] ParkwayRed Blood Mujnx0265-15-59 06:57:00* Test Item Value Reference Range Interpretation Comments Red Blood Count (test code = 789-8) 3.42 3.6-5.1 L [facility] ParkwayHemoglobin2018-07-03 06:57:00* Test Item Value Reference Range Interpretation Comments Hemoglobin (test code = 54016-6) 11.6 12.0-16.0 L [facility] ParkwayHematocrit2018-07-03 06:57:00* Test Item Value Reference Range Interpretation Comments Hematocrit (test code = 4544-3) 34.3 34.2-44.1 [facility] ParkwayMean Corpuscular Chpzbq6778-18-01 06:57:00* Test Item Value Reference Range Interpretation Comments Mean Corpuscular Volume (test code = 787-2) 100.3 81-99 H [facility] ParkwayMean Corpuscular Isozkgrqju8791-23-28 06:57:00* Test Item Value Reference Range Interpretation Comments Mean Corpuscular Hemoglobin (test code = 785-6) 33.9 28-32 H [facility] ParkwayMean Corpuscular Hemoglobin Concent 2018-01-09 06:57:00* Test Item Value Reference Range Interpretation Comments Mean Corpuscular Hemoglobin Concent (test code = 786-4) 33.8 31-35 [facility] ParkwayRed Cell Distribution Nrsoq6463-82-52 06:57:00* Test Item Value Reference Range Interpretation Comments Red Cell Distribution Width (test code = 81800-1) 12.6 11.7 -14.4 [facility] ParkwayPlatelet Yocjk2021-15-43 06:57:00* Test Item Value Reference Range Interpretation Comments Platelet Count (test code = 777-3) 251 140-360 [facility] ParkwayNeutrophils (%) (Auto)2018-01-09 06:57:00 * Test Item Value Reference Range Interpretation Comments Neutrophils (%) (Auto) (test code = 14731-0) 55.8 38.7-80.0 [facility] ParkwayLymphocytes (%) (Auto)2018-01-09 06:57:00 * Test Item Value Reference Range Interpretation Comments Lymphocytes (%) (Auto) (test code = 736-9) 31.4 18.0-39.1 [facility] ParkwayMonocytes (%) (Auto)2018-01-09 06:57:00* Test Item Value Reference Range Interpretation Comments Monocytes (%) (Auto) (test code = 5905-5) 10.5 4.4-11.3 [facility] ParkwayEosinophils (%) (Auto)2018-01-09 06:57:00 * Test Item Value Reference Range Interpretation Comments Eosinophils (%) (Auto) (test code = 713-8) 1.6 0.0-6.0 [facility] ParkwayBasophils (%) (Auto)2018-01-09 06:57:00* Test Item Value Reference Range Interpretation Comments Basophils (%) (Auto) (test code = 706-2) 0.4 0.0-1.0 [facility] ParkwayIM GRANULOCYTES %2018-01-09 06:57:00* Test Item Value Reference Range Interpretation Comments IM GRANULOCYTES % (test code = IM GRANULOCYTES %) 0.3 0.0- 1.0 [facility] ParkwayNeutrophils # (Auto)2018-01-09 06:57:00* Test Item Value Reference Range Interpretation Comments Neutrophils # (Auto) (test code = 751-8) 4.1 2.1-6.9 [facility] ParkwayLymphocytes # (Auto)2018-01-09 06:57:00* Test Item Value Reference Range Interpretation Comments Lymphocytes # (Auto) (test code = 84820-8) 2.3 1.0-3.2 [facility] ParkwayMonocytes # (Auto)2018-01-09 06:57:00* Test Item Value Reference Range Interpretation Comments Monocytes # (Auto) (test code = 742-7) 0.8 0.2-0.8 [facility] ParkwayEosinophils # (Auto)2018-01-09 06:57:00* Test Item Value Reference Range Interpretation Comments Eosinophils # (Auto) (test code = 711-2) 0.1 0.0-0.4 [facility] ParkwayBasophils # (Auto)2018-01-09 06:57:00* Test Item Value Reference Range Interpretation Comments Basophils # (Auto) (test code = 704-7) 0.0 0.0-0.1 [facility] ParkwayAbsolute Immature Granulocyte (auto 2018-01-09 06:57:00* Test Item Value Reference Range Interpretation Comments Absolute Immature Granulocyte (auto (aury t code = Absolute Immature Granulocyte (auto) 0.02 0-0.1 [facility]CT B[facility] UU6120-09-01 18:09:00 [facility] [address] [address] Patient Name: LADONNA DAN MR #: [id number] : 1945 Age/Sex: 72/F Req #: [id number] Adm Physician: Ordered by: FAUSTO REILLY BUSINESS DEVELOPMENT PROFESSIONAL Report #: [id number] Location: [facility]/Bed: Procedure: [id number] CT/CT BRAIN WO Exam Date : 01/08/18 Exam Time: 1700 REPORT STATUS: Katt d EXAMINATION: Head CT HISTORY: Syncope, dizziness, nausea COMPARISON : Head CT on 07/27/2017 brain MRI on 07/28/2017 TECHNIQUE: Multidetector axial i mages were obtained without contrast from the foramen magnum to the vertex . T he images were reconstructed using brain and bone algorithms. Thin section br ain images were reformatted into coronal and sagittal planes. Intravenous co ntrast: None. Motion/streaking artifact limits the evaluation of the skull ba se and posterior cranial fossa. FINDINGS: Parenchyma: 1. Pe rsistent mild white matter chronic microvascular ischemic changes, slightly mo re prominent in the bilateral anterior frontal subcortical white matter. 2. No mass or hemorrhage. No CT evidence of acute territorial vascular insult. Extra-axial spaces:No abnormal density. No extra-axial fluid colle ctions Brain volume: Normal for age. Ventricles: No hydrocephalu s or displacement. Arteries: No density suggestive of thrombus. Dural sinuses: No abnormal density. Extra-axial spaces: No abnormal den sity. Foramen magnum: No mass, Chiari malformation, or basilar invaginat ion. Sella: No obvious mass. Paranasal/mastoid sinuses: Imaged portions unremarkable. Skull/Scalp: No lytic or blastic lesions. No fra ctures. IMPRESSION: 1. No acute intracranial abnormalities. 2. Un changed mild chronic microvascular ischemic changes compared to head CT on 07/10. Signed by: Dr. Whit Rush M.D. on 01/08/2018 6:13 PM Dictate d By: WHIT RUSH MD 12 Transcribed By: MERI on 01/08/181812 COPY TO: FAUSTO REILLY NP CHEST SINGLE (PORTABLE)2018-01-08 17:33:00 [place] [address] Patient Name: LADONNA DAN MR #: [id number] : 1945 Age/Sex: 72/F Req #: [id number] Adm Physician: Ordered by: FAUSTO REILLY BUSINESS DEVELOPMENT PROFESSIONAL Report #: [id number] Location: ER Room/Bed: Procedure: [id number] DX/CHEST SINGLE (PORTABLE ) Exam Date: 01/08/18 Exam Time: 1700 REPORT S TATUS: Signed PROCEDURE: A single AP view of the chest. COMPARISON: INDICATIONS: SYNCOPAL EPISODE FINDINGS: Lines/tubes: None. Lungs: The lungs are well inflated and clear. There is no evidence of pneumonia or pulmonary edema. Unchanged right upper lung field nodular density, likely a calcified granuloma. Pleura: There is no significant p leural effusion or pneumothorax. Heart and mediastinum: The heart and the mediastinum are unremarkable. Bones: No acute bony abnormality. IM PRESSION: 1. No acute cardiopulmonary disease. Dictated by: Anton Chambers M.D. on 01/08/2018 at 17:33 Electronically approved by: Anton rizvi M.D. on 01/08/2018 at 17:33 Dictated By: ANTON CHAMBERS MD 32 Transcribed By: ELLEN on 01/08/181732 COPY TO: FAUSTO REILLY NP Prothrombin Xbse8943-80-98 17:29:00* Test Item Value Reference Range Interpretation Comments Prothrombin Time (test code = 5902-2) 13.1 11.9-14.5 [facility] ParkwayProthromb Time International Ratio 2018-01-08 17:29:00* Test Item Value Reference Range Interpretation Comments Prothromb Time International Ratio (test code = 6301-6) 1.07 Oral Anticoagulant Therapy INR Values:1. Low Intensity Therapy 1.5 - 2.02 . Moderate Intensity Therapy 2.0 - 3.03. High Intensity Therapy(1) 2.5 - 3. 54. High Intensity Therapy(2) 3.0 - 4.05. Panic Value INR > 5.0 [facility] ParkwayActivated Partial Thromboplast Time 2018-01-08 17:29:00* Test Item Value Reference Range Interpretation Comments Activated Partial Thromboplast Time (test code = 67008-0) 25.2 23.8-35.5 [facility] ParkwayClostridium Difficile Toxin A & B 2017-07-29 14:22:00* Test Item Value Reference Range Interpretation Comments Clostridium Difficile Toxin A & B (test code = 854269920) POSI TIVE NEGATIVE H Results PRINTED TO ER/ PATIENT DISCHARGED at 1421 on 07/29/17 by DONA SALGADO . RB OK.Results PRINTED TO infection control at 1421 on 07/29/17 by DONA PEÑA.Testing on stool aspirate specimens is outside security police claims since spe cimen type not validated on this assay.[facility] Clostridium Difficile Toxin A & V2773-54-82 14:22:00* Test Item Value Reference Range Interpretation Comments Clostridium Difficile Toxin A & B (test code = 430066904) POSI TIVE NEGATIVE H Results PRINTED TO ER/ PATIENT DISCHARGED at 1421 on 07/29/17 by DONA SALGADO . RB OK.Results PRINTED TO infection control at 1421 on 07/29/17 by DONA PEÑA.Testing on stool aspirate specimens is outside security police claims since spe cimen type not validated on this assay.[facility] Triglycerides Xuceh4050-54-20 07:01:00* Test Item Value Reference Range Interpretation Comments Triglycerides Level (test code = 2571-8) 186 0-149 H [facility] ParkwayCholesterol Favlm7607-96-57 07:01:00* Test Item Value Reference Range Interpretation Comments Cholesterol Level (test code = 2093-3) 229 0-199 H Less than 200 mg/dL Low Qebj320 - 239 mg/dL Borderline Zfak160 m g/dl and greater High Risk [facility] ParkwayLDL Jpwucokiqot1785-83-88 07:01:00* Test Item Value Reference Range Interpretation Comments LDL Cholesterol (test code = 2089-1) 126 60-130 [facility] ParkwayHDL Qoxklbjowgz0404-24-48 07:01:00* Test Item Value Reference Range Interpretation Comments HDL Cholesterol (test code = 2085-9) 66 40-60 H [facility] ParkwayCholesterol/HDL Qcteb5387-79-23 07:01:00 * Test Item Value Reference Range Interpretation Comments Cholesterol/HDL Ratio (test code = 9830-1) 3.5 3.0-3.6 [facility] ParkwayTriglycerides Mkazo7136-41-79 07:01:00* Test Item Value Reference Range Interpretation Comments Triglycerides Level (test code = 2571-8) 186 0-149 H [facility] ParkwayCholesterol Imwil2232-55-32 07:01:00* Test Item Value Reference Range Interpretation Comments Cholesterol Level (test code = 2093-3) 229 0-199 H Less than 200 mg/dL Low Jmxa391 - 239 mg/dL Borderline Yoay536 m g/dl and greater High Risk [facility] ParkwayLDL Qbjsunprprp6915-17-12 07:01:00* Test Item Value Reference Range Interpretation Comments LDL Cholesterol (test code = 2089-1) 126 60-130 [facility] ParkwayHDL Tmotlfqfsug7379-32-25 07:01:00* Test Item Value Reference Range Interpretation Comments HDL Cholesterol (test code = 2085-9) 66 40-60 H [facility] ParkwayCholesterol/HDL Afshq4273-22-97 07:01:00 * Test Item Value Reference Range Interpretation Comments Cholesterol/HDL Ratio (test code = 9830-1) 3.5 3.0-3.6 [facility] ParkwayUrine Opiates Zqjkla3308-04-53 19:08:00* Test Item Value Reference Range Interpretation Comments Urine Opiates Screen (test code = 25606-6) NEGATIVE NEGATIVE [facility] ParkwayUrine Barbiturates Qnymsc0474-65-96 19:08:00* Test Item Value Reference Range Interpretation Comments Urine Barbiturates Screen (test code = 084820237) NEGATIVE NEGA TIVE [facility] Phencyclidine [id number] 19:08:00* Test Item Value Reference Range Interpretation Comments Urine Phencyclidine Screen (test code = 20739-2) NEGATIVE NEGAT ERIC [facility] Amphetamines [id number] 19:08:00* Test Item Value Reference Range Interpretation Comments Urine Amphetamines Screen (test code = 44155-9) NEGATIVE NEGATI VE [facility] Benzodiazepines [id number] 19:08:00* Test Item Value Reference Range Interpretation Comments Urine Benzodiazepines Screen (test code = 64130-8) NEGATIVE NEG ATIVE [facility] Cocaine Mhqzxh3989-30-43 19:08:00* Test Item Value Reference Range Interpretation Comments Urine Cocaine Screen (test code = Urine Cocaine Screen) NEGATIVE NEGATIVE [facility] Cannabinoids [id number] 19:08:00* Test Item Value Reference Range Interpretation Comments Urine Cannabinoids Screen (test code = 36449-9) NEGATIVE NEGATI VE THESE RESULTS ARE FOR MEDICAL TREATMENT ONLYTHIS REPORT CONTAINS UNCONFIR MED SCREENING RESULTS*POSITIVE RESULTS WILL BE CONFIRMED BY REFERENCE LAB UPON R EQUEST CUT-OFFDRUG CLASS CONCENTRATION ng/mLAmphetamines 1000Methamphetamines 1000Cocaine 300Opiate 300Phencyc lidine 25Cannabinoid 50Barbiturates 300Benzodiazepine 300Methadone 300[facility] [id number] 19:08:00* Test Item Value Reference Range Interpretation Comments Urine WBC (test code = 5821-4) 0-5 0-5 [facility] [id number] 19:08:00* Test Item Value Reference Range Interpretation Comments Urine RBC (test code = 16920-5) 0-5 0-5 [facility] Agraifvq7963-35-85 19:08:00* Test Item Value Reference Range Interpretation Comments Urine Bacteria (test code = 62678-3) FEW NONE [facility] Epithelial [id number] 19:08:00 * Test Item Value Reference Range Interpretation Comments Urine Epithelial Cells (test code = 17044-9) FEW NONE [facility] Opiates Regihx6967-03-26 19:08:00* Test Item Value Reference Range Interpretation Comments Urine Opiates Screen (test code = 47628-7) NEGATIVE NEGATIVE [facility] Barbiturates [id number] 19:08:00* Test Item Value Reference Range Interpretation Comments Urine Barbiturates Screen (test code = 966701248) NEGATIVE NEGA TIVE [facility] Phencyclidine [id number] 19:08:00* Test Item Value Reference Range Interpretation Comments Urine Phencyclidine Screen (test code = 42133-3) NEGATIVE NEGAT ERIC [facility] Amphetamines [id number] 19:08:00* Test Item Value Reference Range Interpretation Comments Urine Amphetamines Screen (test code = 13806-6) NEGATIVE NEGATI VE [facility] Benzodiazepines Olblxz2565-50-89 19:08:00* Test Item Value Reference Range Interpretation Comments Urine Benzodiazepines Screen (test code = 93941-7) NEGATIVE NEG ATIVE [facility] Cocaine Nsjlso8734-32-44 19:08:00* Test Item Value Reference Range Interpretation Comments Urine Cocaine Screen (test code = Urine Cocaine Screen) NEGATIVE NEGATIVE [facility] Cannabinoids Rjmqkr1251-36-61 19:08:00* Test Item Value Reference Range Interpretation Comments Urine Cannabinoids Screen (test code = 36804-9) NEGATIVE NEGATI VE THESE RESULTS ARE FOR MEDICAL TREATMENT ONLYTHIS REPORT CONTAINS UNCONFIR MED SCREENING RESULTS*POSITIVE RESULTS WILL BE CONFIRMED BY REFERENCE LAB UPON R EQUEST CUT-OFFDRUG CLASS CONCENTRATION ng/mLAmphetamines 1000Methamphetamines 1000Cocaine 300Opiate 300Phencyc lidine 25Cannabinoid 50Barbiturates 300Benzodiazepine 300Methadone 300[facility] Kpjhz5485-57-74 18:55:00* Test Item Value Reference Range Interpretation Comments Urine Color (test code = 5778-6) YELLOW YELLOW [facility] Sdezlhj0672-46-17 18:55:00* Test Item Value Reference Range Interpretation Comments Urine Clarity (test code = 30665-3) SL CLOUDY CLEAR [facility] Specific [id number] 18:55:00 * Test Item Value Reference Range Interpretation Comments Urine Specific [place] (test code = 5811-5) 1.020 1.010-1.02 5 [facility] [id number] 18:55:00* Test Item Value Reference Range Interpretation Comments Urine pH (test code = 88944-6) 5 5-7 [facility] Leukocyte Lftgojia1479-95-79 18:55:00* Test Item Value Reference Range Interpretation Comments Urine Leukocyte Esterase (test code = 5799-2) TRACE NEGATIVE H [facility] Icaaxdz9081-37-14 18:55:00* Test Item Value Reference Range Interpretation Comments Urine Nitrite (test code = 20436-1) NEGATIVE NEGATIVE [facility] Yvbjpcc1215-80-56 18:55:00* Test Item Value Reference Range Interpretation Comments Urine Protein (test code = 5804-0) NEGATIVE NEGATIVE [facility] Glucose (UA)2017-07-27 18:55:00* Test Item Value Reference Range Interpretation Comments Urine Glucose (UA) (test code = 2349-9) NEGATIVE NEGATIVE [facility] Hpfpygq1270-72-85 18:55:00* Test Item Value Reference Range Interpretation Comments Urine Ketones (test code = 24339-3) NEGATIVE NEGATIVE [facility] Xioigpvojkmw2110-93-05 18:55:00* Test Item Value Reference Range Interpretation Comments Urine Urobilinogen (test code = 23305-2) 0.2 0.2-1 [facility] Nmjnkywuo7871-76-30 18:55:00* Test Item Value Reference Range Interpretation Comments Urine Bilirubin (test code = 1978-6) NEGATIVE NEGATIVE [facility] Ybilp2574-07-53 18:55:00* Test Item Value Reference Range Interpretation Comments Urine Blood (test code = 43566-1) TRACE NEGATIVE H [facility]way[facility] [place] [address] Patient Name: LADONNA DAN MR #: [id number] : 1945 Age/Sex: 71/F Req #: [id number] Adm Physician: WOODROW ENCINAS MD Ordered by: SHANNON KHAN M.D. Report #: [id number] Location: [place] [address] Room/Bed: [facility] Procedure: [id number] CT/CTA BRAIN Exam Date: 07/28/17 Exam Time: 171 5 REPORT STATUS: Signed EXAMINATION: CT angio of the neck and head with contrast. HISTORY:Syncope, headache and dizziness, possible TIA. C OMPARISON:MRA head and neck from 01/19/2016, CT brain from 07/27/2017 and MRI br ain from 07/28/2017. TECHNIQUE: Multidetector helical axial images were acqu ired through the neck and head during infusion of iodinated contrast material . Images were reviewed in multiplanar and 3-dimensional format. Contrast: 1 00 mL of Isovue-370 . FINDINGS: NECK: If carotid bulb stenosis is present, stenosis is measured with respect to the distal extracranial interna l carotid artery by NASCET criteria. Aortic arch and major vessels: Few s cattered atherosclerotic calcification in the aortic arch. Nonstenotic hard at herosclerotic plaque at the origin of left subclavian artery. Common valencia tid arteries: Patent Cervical carotid bifurcations: Right: Nonstenotic hard atherosclerotic plaque in right carotid bulb. Left :Patent. Internal carotid arteries: Right: Mixed atherosclerotic plaque in proximal cervical se gment of right internal carotid artery results in approximately 20% vascular s tenosis. Left: Nonstenotic focal hard atherosclerotic plaque in proximal cervi daniel segment of left internal carotid artery Vertebral arteries: Patent. HEAD: Internal carotid arteries: Mild atherosclerotic plaque in michelle ateral carotid siphon. Anterior cerebral arteries: Patent A1 segments.. Middle cerebral arteries: Patent M1 segments.. Vertebral arteries: Patent. Basilar artery: Patent. Posterior cerebral arteries: Paten t. Anatomical variants: Anterior communicating artery :Present Posterio r communicating arteries: Not visualized on right, patent on left. Vertebral a rteries: Codominant. Incidental findings: Cervical spine: C5-C6: Moderate right foraminal stenosis due to facet and uncovertebral arthrosis. C6-C7: M oderate degenerative disc disease. Posterior disc osteophyte complex without c anal stenosis. Bilateral severe foraminal stenosis due to facet and uncoverteb ral arthrosis. IMPRESSION: 1. Scattered nonstenotic atherosclerotic pl aque particularly in the aortic arch, origin of left subclavian artery, right carotid bulb and proximal left internal carotid artery. 2. Mixed atherosc lerotic plaque in proximal right internal carotid artery results in approximat roman 20% vascular stenosis. 3. Mild atherosclerotic plaque in bilateral valencia tid siphon. Signed by: Dr. Tammi Flores M.D. on 07/28/2017 8:22 PM Dictated By: TAMMI FLORES MD 21 Transcribed By: MERI on 07/28/172021 COPY TO: SHANNON MARLOW M.D. CTA NECK [place] [address] Patient Name: LADONNA DAN MR #: [id number] : 1945 Age/Sex: 71/F Req #: [id number] Adm Physician: WOODROW ENCINAS MD Ordered by: SHANNON KHAN M.D. Report #: [id number] Location: MED/SURG2 Room/Bed: [facility] Procedure: [id number] CT/CTA NECK Exam Date: 07/28/17 Exam Time: 1715 REPORT STATUS: Signed EXAMINATION: CT angio of the neck and head with contrast. HISTORY:Syncope, headache and dizziness, possible TIA. CO MPARISON:MRA head and neck from 01/19/2016, CT brain from 07/27/2017 and MRI bra in from 07/28/2017. TECHNIQUE: Multidetector helical axial images were acqui red through the neck and head during infusion of iodinated contrast material. Images were reviewed in multiplanar and 3-dimensional format. Contrast: 10 0 mL of Isovue-370 . FINDINGS: NECK: If carotid bulb stenosis is present, stenosis is measured with respect to the distal extracranial internal carotid artery by NASCET criteria. Aortic arch and major vessels: Few sc attered atherosclerotic calcification in the aortic arch. Nonstenotic hard ath erosclerotic plaque at the origin of left subclavian artery. Common carot id arteries: Patent Cervical carotid bifurcations: Right: Nonstenotic h emerson atherosclerotic plaque in right carotid bulb. Left :Patent. Internal carotid arteries: Right: Mixed atherosclerotic plaque in proximal cervical seg ment of right internal carotid artery results in approximately 20% vascular st enosis. Left: Nonstenotic focal hard atherosclerotic plaque in proximal cervic al segment of left internal carotid artery Vertebral arteries: Patent. HEAD: Internal carotid arteries: Mild atherosclerotic plaque in bila teral carotid siphon. Anterior cerebral arteries: Patent A1 segments.. Middle cerebral arteries: Patent M1 segments.. Vertebral arteries: P atent. Basilar artery: Patent. Posterior cerebral arteries: Patent . Anatomical variants: Anterior communicating artery :Present Posterior communicating arteries: Not visualized on right, patent on left. Vertebral ar teries: Codominant. Incidental findings: Cervical spine: C5-C6: Moderate right foraminal stenosis due to facet and uncovertebral arthrosis. C6-C7: Mo derate degenerative disc disease. Posterior disc osteophyte complex without ca nal stenosis. Bilateral severe foraminal stenosis due to facet and uncovertebr al arthrosis. IMPRESSION: 1. Scattered nonstenotic atherosclerotic althea que particularly in the aortic arch, origin of left subclavian artery, right c arotid bulb and proximal left internal carotid artery. 2. Mixed atheroscl erotic plaque in proximal right internal carotid artery results in approximate ly 20% vascular stenosis. 3. Mild atherosclerotic plaque in bilateral carot id siphon. Signed by: Dr. Tammi Flores M.D. on 07/28/2017 8:22 PM Dictated By: TAMMI FLORES MD 21 COPY TO: SHANNON ALBERTS M.D. MRI BRAIN WO [place] [address] Patient Name: LADONNA DAN MR #: [id number] : 1945 Age/Sex: 71/F Req #: [id number] Adm Physician: WOODROW ENCINAS MD Ordered by: SHANNON KHAN M.D. Report #: [id number] Location: MED/SURG2 Room/Bed: Procedure: [id number] 0005 MRI/MRI BRAIN WO Exam Date: 07/28/17 Exam Time: 1720 REPORT STATUS: Signed EXAMINATION: MRI of the brain without contr ast. HISTORY: Dizziness, syncope, hypertension, history of CVA/TIA in th e past COMPARISON: Head CT on 07/27/2017 and brain MRI and 01/19/2016 TECHNIQU E: Sagittal T2; axial DWI, T2, FLAIR, T1-IR, T2 gradient echo; coronal FLAIR. IMAGE QUALITY: Adequate. FINDINGS: Parenchyma: 1. Unchang ed few scatter and mildly confluent periventricular white matter T12. Hyperint ense foci, most likely nonspecific chronic microvascular ischemic changes 2. No mass, hemorrhage, acute or chronic infarcts. Skull: Unremarkable. Vessels: Expected flow voids present in the major arteries and du ral sinuses. Extra-axial spaces: No abnormal signal intensity or mass e ffect. Brain volume: Within normal limits for age. Ventricles: No hydrocephalus or displacement. Foramen magnum: Unremarkable. Jenny la: Unremarkable. Paranasal / mastoid sinuses: No significant inflammat ory disease. IMPRESSION: 1. No acute infarcts. 2. Unchanged mil d supratentorial white matter chronic microvascular ischemic changes. Sig ivan by: Dr. Whit Rush M.D. on 07/28/2017 5:59 PM Dictated By: WHIT BELLA MD 58 Transcribed By : MERI on 07/28/171758 COPY TO: SHANNON KHAN M.D. CHEST 2 VIEWS [place] [address] Patient Name: LADONNA DAN MR #: [id number] : 1945 Age/Sex: 71/F Req #: [id number] Adm Physician: Ordered by: GISELLE STEPHENSON MD Report #: [id number] Location: ER Room/Bed: Procedure: [id number] DX/CHEST 2 VIEWS Exam Date : Exam Time: REPORT STATUS: Signed PROCEDU RE: Frontal and lateral views of the chest. COMPARISON: DX, CHEST SINGLE (PORTABLE), 01/19/2016, 18:00. INDICATIONS: DIZZY, SYNCOPE FIN DINGS: Lines/tubes: None. Lungs: 4 mm nodule projected on the right upp er lobe. Left basilar subsegmental atelectasis. There is no evidence of pneum onia or pulmonary edema. Pleura: There is no pleural effusion or pneum othorax. Heart and mediastinum: The heart and the mediastinum are normal. Calcified right hilar lymph nodes. Bones: No acute bony abnormality. Mild spondylosis of the thoracic spine. IMPRESSION: 1. No acute thoracic abnormality. 2. 4 mm nodule in the right upper lobe may represent a granuloma. Toma Gill M.D. Dictated by: Toma Gill M.D. on 07/27/2017 at 18:23 Electronically approved by: Toma Gill M.D. on 07/27/2017 at 18:23 Dictated By: XIOMARA GILL MD, MD 22 Transcribed By: ELLEN on 07/27/171822 COPY TO: GISELLE STEPHENSON MD CT BRAIN WO [place] [address] Patient Name: LADONNA DAN MR #: [id number] : 1945 Age/Sex: 71/F Req #: [id number] Adm Physician: Ordered by: GISELLE STEPHENSON MD Report #: [id number] Location: ER Room/Bed: Procedure: [id number] CT/CT BRAIN WO Exam Date: Exam Time: REPORT STATUS: Signed Exam: Hea d CT without contrast History: Dizziness Comparison studies: CT brain from 01/19/2016 Technique: Axial images were obtained from the skull base to t he vertex. Coronal and sagittal images reconstructed from the axial data. In travenous contrast: None Findings: Scalp: Nonspecific unchanged puncta te superficial radiopaque densities in left frontal scalp may represent calcif ication or debris.. Bones: No fractures, blastic or lytic lesions. Brain sulci: Mildly prominent. Ventricles: Mild compensatory dilatation. No hydrocep halus. Extra-axial spaces: No masses, no fluid collection. Parenchym a: Subtle hypodensities in the bilateral periventricular and subcortical whit e matter are small vessel ischemic changes. No masses, hemorrhage, acute or chronic vascular insults. Sellar/suprasellar region: No abnormalities. C raniocervical junction: Patent foramen magnum. No Chiari one malformation. Incidental findings: Mild carotid siphon atherosclerotic calcifications. IMPRESSION: 1. No acute intracranial abnormality. No change since CT bra in from 01/19/2016. 2. Mild generalized age-related intracranial volume loss. 3. Mild chronic small vessel ischemic changes. Preliminary report was provided by neuroradiology fellow, Dr.Thach Lynn MD on 07/27/2017 5:57 PM . I have reviewed the study and agree with the findings in the preliminary report. Signed by: Dr. Tammi Flores M.D. on 07/27/2017 7:31 PM Dictated By: TAMMI FLORES MD 30 COPY TO: GISELLE BAZAN MD
[2020-03-03 02:42] LABS: BASOPHILS # (AUTO) 0.1 (0.0-0.1); BASOPHILS % 0.6 % (0.0-1.0); EOSINOPHILS # (AUTO) 0.2 (0.0-0.4); EOSINOPHILS % 1.9 % (0.0-6.0); HEMATOCRIT 39.8 % (34.2-44.1); HEMOGLOBIN 13.4 g/dL (12.0-16.0); LYMPHOCYTES # (AUTO) 3.2 (1.0-3.2); LYMPHOCYTES % 34.6 % (18.0-39.1); MEAN CORPUSCULAR HEMOGLOBIN 31.5 pg (28-32); MEAN CORPUSCULAR HGB CONC 33.7 g/dL (31-35); MEAN CORPUSCULAR VOLUME 93.4 fL (81-99); MONOCYTES # (AUTO) 1.1 (0.2-0.8); MONOCYTES % 11.3 % (4.4-11.3); NEUTROPHILS # (AUTO) 4.8 (2.1-6.9); NEUTROPHILS % 51.3 % (38.7-80.0); PLATELET COUNT 378 x10e3/uL (140-360); RED BLOOD COUNT 4.26 x10e6/uL (3.6-5.1)
--- NOTE | 2020-03-03 02:56 | Diagnostic Imaging Report ---
Exam: Head CT without contrast History: Dizziness Comparison studies: Multiple prior head CTs which date to 12/16/2010, most recent head CT 01/15/2020. Technique: Axial images were obtained from the skull base to the vertex. Coronal and sagittal images reconstructed from the axial data. Dose modulation, iterative reconstruction, and/or weight based adjustment of the mA/kV was utilized to reduce the radiation dose to as low as reasonably achievable. Radiation dose: Total DLP: 832.18 mGy*cm. Estimated effective dose: DLP x 0.015 Intravenous contrast: None Findings: Scalp: Unchanged incidental scarring with punctate calcifications in the left supraorbital scalp. Bones: No fractures, blastic or lytic lesions. Brain sulci: Mildly prominent, unchanged. Ventricles: Mild compensatory dilatation, unchanged. No hydrocephalus. Extra-axial spaces: No masses, no fluid collection. Parenchyma: A few scattered hypodensities in the supratentorial white matter are nonspecific but are most compatible with chronic microvascular ischemic changes. No masses, hemorrhage, acute or chronic vascular insults. Sellar/suprasellar region: No abnormalities. Craniocervical junction: Patent foramen magnum. No Chiari one malformation. Incidental findings: Degenerative changes at the right temporomandibular joint. Bilateral intraocular lens replacements. Atherosclerotic calcifications in the carotid siphons. IMPRESSION: No acute intracranial abnormalities. Chronic findings: 1. Generalized parenchymal volume loss. 2. Mild chronic microvascular ischemic changes. Signed by: Dr. Sharif Carreno M.D. on 03/03/2020 2:52 AM
[2020-03-03 03:02] LABS: ALANINE AMINOTRANSFERASE 18 IU/L (0-55); ALBUMIN 3.9 g/dL (3.5-5.0); ALKALINE PHOSPHATASE 64 IU/L (40-150); ANION GAP 18.3 mmol/L (8-16); BLOOD UREA NITROGEN 12 mg/dL (7-26); BUN/CREATININE RATIO 14 (6-25); CALCIUM 9.7 mg/dL (8.4-10.2); CARBON DIOXIDE 19 mmol/L (22-29); CHLORIDE 97 mmol/L (98-107); CREATINE KINASE 98 IU/L (29-168); CREATININE, SERUM 0.88 mg/dL (0.57-1.11); EST GLOMERULAR FILTRATION RATE > 60 ML/MIN (60-); GLUCOSE 110 mg/dL (74-118); POTASSIUM 3.3 mmol/L (3.5-5.1); SODIUM 131 mmol/L (136-145)
[2020-03-03] MEDS ORDERED: POTASSIUM CHLORIDE 20 MEQ TAB CR PO STA (03:28)
[2020-03-03 03:49] VITALS: BP 144/61
== END 2020-03-03 03:59 | disposition home or self-care (01) ==
LOC: ER 02:02
DX: R42 Dizziness and giddiness (principal); I10 Essential (primary) hypertension; E87.1 Hypo-osmolality and hyponatremia; E87.6 Hypokalemia; B19.20 Unspecified viral hepatitis C without hepatic coma
CPT/HCPCS: 36415; 70450; 80053; 82550; 82553; 84484; 85025; 93005; 99284; J0360; J2405

== ENCOUNTER 2020-03-14 13:26 | Emergency (ER) | payer MEDICARE ==
[~2020-03-14] VITALS: Ht 152.4 cm; Wt 56.2 kg
--- OUTSIDE RECORDS SUMMARY | 2020-03-14 14:03 | XMS REPORT | Continuity of Care Document ---
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 (moles/volume)2020-01-17 04:50:00* Test Item Value Reference Range Interpretation Comments Chloride Level (test code = 2075-0) 102 98-107 [facility]viewerum or plasma carbon dioxide, total measurement (moles/volume)2020-01-17 04:50:00* Test Item Value Reference Range Interpretation Comments Carbon Dioxide Level (test code = 2028-9) 23 22-29 [facility]viewerum or plasma anion ovw1807-37-20 04:50:00* Test Item Value Reference Range Interpretation Comments Anion Gap (test code = 88893-2) 13.7 8-16 [facility]viewerum or plasma urea nitrogen measurement (mass/volume)2020-01-17 04:50:00* Test Item Value Reference Range Interpretation Comments Blood Urea Nitrogen (test code = 3094-0) 5 7-26 [facility]viewerum or plasma creatinine measurement (mass/volume)2020-01-17 04:50:00* Test Item Value Reference Range Interpretation Comments Creatinine (test code = 2160-0) 0.77 0.57-1.11 [facility]viewerum or plasma urea nitrogen/creatinine mass slknh2465-03-91 04:50:00* Test Item Value Reference Range Interpretation Comments BUN/Creatinine Ratio (test code = 3097-3) 6 6-25 [facility] CenterEstimated glomerular filtration rate (GFR) bitnwqlydkklc8211-77-60 04:50:00* Test Item Value Reference Range Interpretation Comments Estimat Glomerular Filtration Rate (test code = 466322130) > 60 >60 Ranges were taken from the National Kidney Disease Education Program and the [facility] literature.Reference ranges:60 or greater: Cdmjxc14-26 ( for 3 consecutive months): Chronic kidney disease 15 or less: Kidney failureMethodist Mansfield Medical CenterGlucose ksyjwevoxtr2470-18-67 04:50:00* Test Item Value Reference Range Interpretation Comments Glucose Level (test code = VBJ6376) 86 74-118 [facility]viewerum or plasma calcium measurement (mass/volume)2020-01-17 04:50:00* Test Item Value Reference Range Interpretation Comments Calcium Level (test code = 14620-7) 9.6 8.4-10.2 [facility]viewerum or plasma magnesium measurement (mass/volume)2020-01-17 04:50:00* Test Item Value Reference Range Interpretation Comments Magnesium Level (test code = 68916-8) 1.5 1.3-2.1 [facility]viewerum or plasma total bilirubin measurement (mass/volume)2020-01-17 04:50:00* Test Item Value Reference Range Interpretation Comments Total Bilirubin (test code = 1975-2) 0.3 0.2-1.2 [facility] CenterFluoroscopic procedure less than one hour dtekqvzb4339-07-96 04:50:00* Test Item Value Reference Range Interpretation Comments Aspartate Amino Transf (AST/SGOT) (test code = Aspartate Amino Transf (AST/SGOT)) 21 5-34 [facility]viewerum or plasma alanine aminotransferase measurement (enzymatic activity/volume)2020-01-17 04:50:00* Test Item Value Reference Range Interpretation Comments Alanine Aminotransferase (ALT/SGPT) (test code = 1742-6) 21 0-55 [facility]viewerum or plasma protein measurement (mass/volume)2020-01-17 04:50:00* Test Item Value Reference Range Interpretation Comments Total Protein (test code = 2885-2) 6.9 6.5-8.1 [facility]viewerum or plasma albumin measurement (mass/volume)2020-01-17 04:50:00* Test Item Value Reference Range Interpretation Comments Albumin (test code = 1751-7) 3.6 3.5-5.0 [facility] CenterPlasma globulin measurement (mass/volume) 2020-01-17 04:50:00* Test Item Value Reference Range Interpretation Comments Globulin (test code = 21720-0) 3.3 2.3-3.5 [facility]viewerum or plasma albumin/globulin mass cqusc2920-93-59 04:50:00* Test Item Value Reference Range Interpretation Comments Albumin/Globulin Ratio (test code = 1759-0) 1.1 0.8-2.0 [facility]viewerum or plasma alkaline phosphatase measurement (enzymatic activity/volume)2020-01-17 04:50:00* Test Item Value Reference Range Interpretation Comments Alkaline Phosphatase (test code = 6768-6) 50 40-150 [facility]viewerum or plasma magnesium measurement (mass/volume)2020-01-17 04:50:00* Test Item Value Reference Range Interpretation Comments Magnesium Level (test code = 47028-5) 1.5 1.3-2.1 [facility]viewerum or plasma creatine kinase measurement (enzymatic activity/volume)2020-01-16 16:54:00* Test Item Value Reference Range Interpretation Comments Creatine Kinase (test code = 2157-6) 53 29-168 [facility]viewerum or plasma creatine kinase MB measurement (mass/volume)2020-01-16 16:54:00* Test Item Value Reference Range Interpretation Comments Creatine Kinase MB (test code = 92006-2) 1.60 0-5.0 [facility] CenterTroponin I measurement by highly sensitive enzyme icgpxkqhxdz5452-18-17 16:54:00* Test Item Value Reference Range Interpretation Comments Troponin I (test code = 47349-5) < 0.001 0-0.300 [facility] CenterFluoroscopic procedure less than one hour debxtkjc7217-75-28 02:02:00* Test Item Value Reference Range Interpretation Comments [...] complexity tests.Testing performed by [facility] [address] [place], [place] [phone] Director: Jose Seals M.D.CLIA # [id number] [facility] CenterCT BRAIN HE0704-46-43 21:08:00 [facility] [address] [place] [address] Patient Name: LADONNA DAN MR #: [id number] : 1945 Age/Sex: 74/F Req #: [id number] Adm Physician: Ordered by: NATE GOMEZ MD Report #: [id number] Location: ER Room/Bed: Procedure: [id number] CT/CT BRAIN WO Exam Date: 01/15/20 Exam [...] SUDARSHAN GOMEZ MD CHEST SINGLE (PORTABLE)2020-01-15 21:05:00 [place] [address] Patient Name: LADONNA DAN MR #: [id number] : 1945 Age/Sex: 74/F Req #: [id number] Adm Physician: Ordered by: NATE GOMEZ MD Report #: [id number] Location: ER Room/Bed: Procedure: [id number] DX/[place] [facility] SINGLE (PORTABLE) Exam Date: 01/15/20 Exam [...] MERI on 01/15/202156 COPY TO : NATE GMOEZ MD Urine color nqzmfbrwblrjm1401-13-67 20:21:00 * Test Item Value Reference Range Interpretation Comments Urine Color (test code = 5778-6) YELLOW YELLOW [facility] CenterUrine bvayhvt2022-60-51 20:21:00* Test Item Value Reference Range Interpretation Comments Urine Clarity (test code = 43298-8) SL CLOUDY CLEAR [facility]viewpecific gravity of Urine by Test strip 2020-01-15 20:21:00* Test Item Value Reference Range Interpretation Comments Urine Specific [place] (test code = 5811-5) 1.020 1.010-1.02 5 [facility] CenterUrine pH measurement by automated test ifhbv2620-07-12 20:21:00* Test Item Value Reference Range Interpretation Comments Urine pH (test code = 12540-9) 6 5-7 [facility] CenterUrine leukocyte esterase detection by ukxqsdto9961-13-50 20:21:00* Test Item Value Reference Range Interpretation Comments Urine Leukocyte Esterase (test code = 5799-2) MODERATE NEGATIVE [facility] CenterUrine nitrite aawyxeegy0584-28-33 20:21:00* Test Item Value Reference Range Interpretation Comments Urine Nitrite (test code = 31012-4) NEGATIVE NEGATIVE [facility] CenterUrine protein measurement by test strip (mass/volume)2020-01-15 20:21:00* Test Item Value Reference Range Interpretation Comments Urine Protein (test code = 5804-0) TRACE NEGATIVE [facility] CenterUrine glucose atuxfvvpp4776-00-60 20:21:00* Test Item Value Reference Range Interpretation Comments Urine Glucose (UA) (test code = 2349-9) NEGATIVE NEGATIVE [facility] CenterUrine ketones detection by automated test yazek7583-12-70 20:21:00* Test Item Value Reference Range Interpretation Comments Urine Ketones (test code = 52668-5) NEGATIVE NEGATIVE [facility] CenterUrine urobilinogen measurement by test strip (mass/volume)2020-01-15 20:21:00* Test Item Value Reference Range Interpretation Comments Urine Urobilinogen (test code = 91873-4) 0.2 0.2-1 [facility] CenterUrine total bilirubin measurement (mass/volume)2020-01-15 20:21:00* Test Item Value Reference Range Interpretation Comments Urine Bilirubin (test code = 1978-6) NEGATIVE NEGATIVE [facility] CenterUrine erythrocytes tunsertiw9574-74-76 20:21:00* Test Item Value Reference Range Interpretation Comments Urine Blood (test code = 57721-1) NEGATIVE NEGATIVE [facility] CenterAutomated urine sediment leukocyte count by microscopy (number/high power field)2020-01-15 20:21:00* Test Item Value Reference Range Interpretation Comments Urine WBC (test code = 5821-4) 11-20 0-5 [facility] CenterErythrocytes detection in urine sediment by light notwmwxtcd5406-89-27 20:21:00* Test Item Value Reference Range Interpretation Comments Urine RBC (test code = 05971-0) NONE 0-5 [facility] CenterBacteria detection in urine sediment by light abhnehbjfb3130-19-74 20:21:00* Test Item Value Reference Range Interpretation Comments Urine Bacteria (test code = 50801-8) MODERATE NONE [facility] CenterEpithelial cells detection in urine sediment by light vlyunrieiv7226-84-18 20:21:00* Test Item Value Reference Range Interpretation Comments Urine Epithelial Cells (test code = 25959-9) MODERATE NONE [facility] CenterUrine color brfxafkyxefxh8601-49-36 20:21:00* Test Item Value Reference Range Interpretation Comments Urine Color (test code = 5778-6) YELLOW YELLOW [facility] CenterUrine fxcgbxy8182-08-26 20:21:00* Test Item Value Reference Range Interpretation Comments Urine Clarity (test code = 05021-1) SL CLOUDY CLEAR [facility]viewpecific gravity of Urine by Test strip 2020-01-15 20:21:00* Test Item Value Reference Range Interpretation Comments Urine Specific [place] (test code = 5811-5) 1.020 1.010-1.02 5 [facility] CenterUrine pH measurement by automated test dtxoi7561-20-57 20:21:00* Test Item Value Reference Range Interpretation Comments Urine pH (test code = 10522-1) 6 5-7 [facility] CenterUrine leukocyte esterase detection by iofeqevk4118-53-66 20:21:00* Test Item Value Reference Range Interpretation Comments Urine Leukocyte Esterase (test code = 5799-2) MODERATE NEGATIVE [facility] CenterUrine nitrite ltpigphob3440-77-91 20:21:00* Test Item Value Reference Range Interpretation Comments Urine Nitrite (test code = 51810-5) NEGATIVE NEGATIVE [facility] CenterUrine protein measurement by test strip (mass/volume)2020-01-15 20:21:00* Test Item Value Reference Range Interpretation Comments Urine Protein (test code = 5804-0) TRACE NEGATIVE [facility] CenterUrine glucose drjiminym2676-45-91 20:21:00* Test Item Value Reference Range Interpretation Comments Urine Glucose (UA) (test code = 2349-9) NEGATIVE NEGATIVE [facility] CenterUrine ketones detection by automated test qqzej3004-00-16 20:21:00* Test Item Value Reference Range Interpretation Comments Urine Ketones (test code = 47761-5) NEGATIVE NEGATIVE [facility] CenterUrine urobilinogen measurement by test strip (mass/volume)2020-01-15 20:21:00* Test Item Value Reference Range Interpretation Comments Urine Urobilinogen (test code = 60307-6) 0.2 0.2-1 [facility] CenterUrine total bilirubin measurement (mass/volume)2020-01-15 20:21:00* Test Item Value Reference Range Interpretation Comments Urine Bilirubin (test code = 1978-6) NEGATIVE NEGATIVE [facility] CenterUrine erythrocytes vximmmuyf4216-45-41 20:21:00* Test Item Value Reference Range Interpretation Comments Urine Blood (test code = 00801-8) NEGATIVE NEGATIVE [facility] CenterAutomated urine sediment leukocyte count by microscopy (number/high power field)2020-01-15 20:21:00* Test Item Value Reference Range Interpretation Comments Urine WBC (test code = 5821-4) 11-20 0-5 [facility] CenterErythrocytes detection in urine sediment by light wmapdllefc5923-31-27 20:21:00* Test Item Value Reference Range Interpretation Comments Urine RBC (test code = 71637-5) NONE 0-5 [facility] CenterBacteria detection in urine sediment by light clgxmjvchc5449-24-81 20:21:00* Test Item Value Reference Range Interpretation Comments Urine Bacteria (test code = 56638-3) MODERATE NONE [facility] CenterEpithelial cells detection in urine sediment by light eliwbyjlga2909-75-38 20:21:00* Test Item Value Reference Range Interpretation Comments Urine Epithelial Cells (test code = 92195-8) MODERATE NONE [facility] CenterProthrombin time (PT) in platelet poor plasma by coagulation afbui9010-22-14 19:31:00* Test Item Value Reference Range Interpretation Comments Prothrombin Time (test code = 5902-2) 12.1 11.9-14.5 [facility] CenterINR in Platelet poor plasma by Coagulation jijpq2950-53-16 19:31:00* Test Item Value Reference Range Interpretation Comments Prothromb Time International Ratio (test code = 6301-6) 0.85 Oral Anticoagulant Therapy INR Values:1. Low Intensity Therapy 1.5 - 2.02 . Moderate Intensity Therapy 2.0 - 3.03. High Intensity Therapy(1) 2.5 - 3. 54. High Intensity Therapy(2) 3.0 - 4.05. Panic Value INR > 5.0 [facility] CenterActivated partial thromboplastin time (aPTT) in platelet poor plasma by coagulation pcdge1855-54-95 19:31:00* Test Item Value Reference Range Interpretation Comments Activated Partial Thromboplast Time (test code = 32981-9) 23.5 23.8-35.5 [facility] CenterProthrombin time (PT) in platelet poor plasma by coagulation prfgv9135-52-75 19:31:00* Test Item Value Reference Range Interpretation Comments Prothrombin Time (test code = 5902-2) 12.1 11.9-14.5 [facility] CenterINR in Platelet poor plasma by Coagulation jahrx5139-18-88 19:31:00* Test Item Value Reference Range Interpretation Comments Prothromb Time International Ratio (test code = 6301-6) 0.85 Oral Anticoagulant Therapy INR Values:1. Low Intensity Therapy 1.5 - 2.02 . Moderate Intensity Therapy 2.0 - 3.03. High Intensity Therapy(1) 2.5 - 3. 54. High Intensity Therapy(2) 3.0 - 4.05. Panic Value INR > 5.0 [facility] CenterActivated partial thromboplastin time (aPTT) in platelet poor plasma by coagulation fnomu6349-20-00 19:31:00* Test Item Value Reference Range Interpretation Comments Activated Partial Thromboplast Time (test code = 10534-9) 23.5 23.8-35.5 [facility]viewtress Test - Treadmill ZQIY8819-49-69 13:14:00 [facility] [address] [place] [address] Patient Name : LADONNA DAN MR #: [id number] : 1945 Age/Sex: 74/F Adm Physician : MERRY DUMAS DO Admit Date : 01/02/20 Location : [place] Room/Bed : ____ REPORT: Myoview Stress T [...] regional wall motion abnormalities. Sandra Rivera MD ABS/RASHARD /[id number] Signature Date Dictate d By: SANDRA RIVERA MD Transcribed By: RASHARD on 01/02/20 <Electronically signed by SANDRA RIVERA MD><<Signature on File>>01/15/20 5405 COPY TO: Fluoroscopic procedure less than one hour zrvoxddc8874-66-73 12:05:00* Test Item Value Reference Range Interpretation [...] complexity tests.Testing performed by [facility] [address] [phone] Director: Jose Seals M.D.CLIA # [id number] [facility] CenterUrine OWG1474-39-86 21:37:00* Test Item Value Reference Range Interpretation Comments Urine WBC (test code = 5821-4) 0-5 0-5 [facility] CenterUrine QAT9690-20-95 21:37:00* Test Item Value Reference Range Interpretation Comments Urine RBC (test code = 59453-9) 0-5 0-5 [facility] CenterUrine Ezeagqrj3763-88-87 21:37:00* Test Item Value Reference Range Interpretation Comments Urine Bacteria (test code = 57574-1) RARE NONE [facility] CenterUrine Epithelial Uhdhn0994-52-23 21:37:00 * Test Item Value Reference Range Interpretation Comments Urine Epithelial Cells (test code = 46772-3) FEW NONE [facility] CenterUrine Lfqve7342-28-38 21:26:00* Test Item Value Reference Range Interpretation Comments Urine Color (test code = 5778-6) YELLOW YELLOW [facility] CenterUrine Ernsomq0431-43-36 21:26:00* Test Item Value Reference Range Interpretation Comments Urine Clarity (test code = 08005-7) CLEAR CLEAR [facility] CenterUrine Specific Wcqposd4724-90-90 21:26:00 * Test Item Value Reference Range Interpretation Comments Urine Specific [place] (test code = 5811-5) <=1.005 1.010-1.02 5 [facility] CenterUrine jS4760-40-91 21:26:00* Test Item Value Reference Range Interpretation Comments Urine pH (test code = 63412-9) 6.5 5-7 [facility] CenterUrine Leukocyte Dfgpokrs7651-59-84 21:26:00* Test Item Value Reference Range Interpretation Comments Urine Leukocyte Esterase (test code = 69872-6) SMALL NEGATIV E [facility] CenterUrine Lyseyoc5412-47-17 21:26:00* Test Item Value Reference Range Interpretation Comments Urine Nitrite (test code = 68460-0) NEGATIVE NEGATIVE [facility] CenterUrine Mfhhfsg1619-30-68 21:26:00* Test Item Value Reference Range Interpretation Comments Urine Protein (test code = 32921-8) NEGATIVE NEGATIVE [facility] CenterUrine Glucose (UA)2019-01-29 21:26:00* Test Item Value Reference Range Interpretation Comments Urine Glucose (UA) (test code = 14447-1) NEGATIVE NEGATIVE [facility] CenterUrine Dnhuezg2726-46-65 21:26:00* Test Item Value Reference Range Interpretation Comments Urine Ketones (test code = 76731-8) NEGATIVE NEGATIVE [facility] CenterUrine Yilskftoodcb5037-10-37 21:26:00* Test Item Value Reference Range Interpretation Comments Urine Urobilinogen (test code = 84462-8) 0.2 0.2-1 [facility] CenterUrine Nedbklwfr7739-08-17 21:26:00* Test Item Value Reference Range Interpretation Comments Urine Bilirubin (test code = 1977-8) NEGATIVE NEGATIVE [facility] CenterUrine Ecibd7324-93-39 21:26:00* Test Item Value Reference Range Interpretation Comments Urine Blood (test code = 93196-0) NEGATIVE NEGATIVE [facility] CenterCHEST SINGLE (PORTABLE)2019-01-29 21:05:00 [place] [address] Patient Name: LADONNA DAN MR #: [id number] : 1945 Age/Sex: 73/F Req #: [id number] Adm Physician: Ordered by: KRISHAN PITTMAN MD Report #: [id number] Location: Room/Bed: Procedure: [id number] DX/CHEST SINGLE (PORTABLE) Exam Date: 01/29/19 Exam [...] 2105 COPY TO: KRISHAN PITTMAN MD Magnesium Inlch4179-81-98 21:04:00* Test Item Value Reference Range Interpretation Comments Magnesium Level (test code = 17875-8) 2.0 1.3-2.1 [facility] CenterCT BRAIN MP8755-82-40 21:03:00 [place] [address] Patient Name: LADONNA DAN MR #: [id number] : 1945 Age/Sex: 73/F Req #: [id number] Adm Physician: Ordered by: KRISHAN PITTMAN MD Report #: [id number] Location: ER Room/Bed: Procedure: [id number] CT/CT BRAIN WO Exam Date: 01/29/19 Exam [...] 9:05 PM Dictated By: WHIT RUSH MD [facility] Signed By: WHIT RUSH MD on 01/29/192104 Transcribed By: MERI on 01/29 COPY TO: KRISHAN PITTMAN MD Creatine Kinase MB 2019-01-29 20:59:00* Test Item Value Reference Range Interpretation Comments Creatine Kinase MB (test code = 92920-8) 1.30 0-5.0 [facility] CenterTroponin X7328-26-65 20:59:00* Test Item Value Reference Range Interpretation Comments Troponin I (test code = HRX1181) < 0.001 0-0.300 [facility]viewodium Txbkl8845-81-60 20:52:00* Test Item Value Reference Range Interpretation Comments Sodium Level (test code = 2951-2) 133 136-145 L [facility] CenterPotassium Jzyul9786-54-62 20:52:00* Test Item Value Reference Range Interpretation Comments Potassium Level (test code = 2823-3) 3.9 3.5-5.1 [facility] CenterChloride Pidci1872-83-81 20:52:00* Test Item Value Reference Range Interpretation Comments Chloride Level (test code = 2075-0) 99 98-107 [facility] CenterCarbon Dioxide Xigtk3090-79-21 20:52:00* Test Item Value Reference Range Interpretation Comments Carbon Dioxide Level (test code = 2028-9) 22 22-29 [facility] CenterAnion Wja6884-38-87 20:52:00* Test Item Value Reference Range Interpretation Comments Anion Gap (test code = 91891-2) 15.9 8-16 [facility] CenterBlood Urea Hrugfosn6083-53-49 20:52:00* Test Item Value Reference Range Interpretation Comments Blood Urea Nitrogen (test code = 3094-0) 10 7-26 [facility] CenterCreatinine2019-07-23 20:52:00* Test Item Value Reference Range Interpretation Comments Creatinine (test code = 2160-0) 0.98 0.57-1.11 [facility] CenterBUN/Creatinine Pcdhk9325-50-63 20:52:00* Test Item Value Reference Range Interpretation Comments BUN/Creatinine Ratio (test code = 3097-3) 10 6-25 [facility] CenterEstimat Glomerular Filtration Rate 2019-01-29 20:52:00* Test Item Value Reference Range Interpretation Comments Estimat Glomerular Filtration Rate (test code = 471722101) 55 >60 L Ranges were taken from the National Kidney Disease Education Program and the [facility] Kidney Foundation literature.Reference ranges:60 or greater: Jltshe57-76 ( for 3 consecutive months): Chronic kidney disease 15 or less: Kidney failureMethodist Mansfield Medical CenterGlucose Cfmak1685-19-91 20:52:00* Test Item Value Reference Range Interpretation Comments Glucose Level (test code = GZV2810) 112 74-118 [facility] CenterCalcium Inlwz6018-83-29 20:52:00* Test Item Value Reference Range Interpretation Comments Calcium Level (test code = 64102-3) 10.1 8.4-10.2 [facility] CenterTotal Njeltdbvq1654-11-28 20:52:00* Test Item Value Reference Range Interpretation Comments Total Bilirubin (test code = 1975-2) 0.3 0.2-1.2 [facility] CenterAspartate Amino Transf (AST/SGOT) 2019-01-29 20:52:00* Test Item Value Reference Range Interpretation Comments Aspartate Amino Transf (AST/SGOT) (test code = Aspartate Amino Transf (AST/SGOT)) 26 5-34 [facility] CenterAlanine Aminotransferase (ALT/SGPT) 2019-01-29 20:52:00* Test Item Value Reference Range Interpretation Comments Alanine Aminotransferase (ALT/SGPT) (test code = 1742-6) 32 0-55 [facility] CenterTotal Dgzkepw6095-01-77 20:52:00* Test Item Value Reference Range Interpretation Comments Total Protein (test code = 2885-2) 7.8 6.5-8.1 [facility] CenterAlbumin2019-07-23 20:52:00* Test Item Value Reference Range Interpretation Comments Albumin (test code = 1751-7) 4.2 3.5-5.0 [facility] CenterGlobulin2019-07-23 20:52:00* Test Item Value Reference Range Interpretation Comments Globulin (test code = 91840-1) 3.6 2.3-3.5 H [facility] CenterAlbumin/Globulin Nsoyu6666-37-17 20:52:00 * Test Item Value Reference Range Interpretation Comments Albumin/Globulin Ratio (test code = 1759-0) 1.2 0.8-2.0 [facility] CenterAlkaline Lqbjrevxqsf0545-29-33 20:52:00* Test Item Value Reference Range Interpretation Comments Alkaline Phosphatase (test code = 6768-6) 63 40-150 [facility] CenterCreatine Zgbbdi0653-51-65 20:52:00* Test Item Value Reference Range Interpretation Comments Creatine Kinase (test code = 2157-6) 68 29-168 [facility] CenterProthrombin Ymwv8825-68-57 20:51:00* Test Item Value Reference Range Interpretation Comments Prothrombin Time (test code = 5902-2) 12.7 11.9-14.5 [facility] CenterProthromb Time International Ratio 2019-01-29 20:51:00* Test Item Value Reference Range Interpretation Comments Prothromb Time International Ratio (test code = 6301-6) 0.91 Oral Anticoagulant Therapy INR Values:1. Low Intensity Therapy 1.5 - 2.02 . Moderate Intensity Therapy 2.0 - 3.03. High Intensity Therapy(1) 2.5 - 3. 54. High Intensity Therapy(2) 3.0 - 4.05. Panic Value INR > 5.0 [facility] CenterActivated Partial Thromboplast Time 2019-01-29 20:51:00* Test Item Value Reference Range Interpretation Comments Activated Partial Thromboplast Time (test code = 07343-6) 23.5 23.8-35.5 L [facility] CenterWhite Blood Gkpco3635-26-29 20:43:00* Test Item Value Reference Range Interpretation Comments White Blood Count (test code = 6690-2) 10.77 4.8-10.8 [facility] CenterRed Blood Kewad0627-49-80 20:43:00* Test Item Value Reference Range Interpretation Comments Red Blood Count (test code = 789-8) 4.04 3.6-5.1 [facility] CenterHemoglobin2019-07-23 20:43:00* Test Item Value Reference Range Interpretation Comments Hemoglobin (test code = 05381-3) 13.4 12.0-16.0 [facility] CenterHematocrit2019-07-23 20:43:00* Test Item Value Reference Range Interpretation Comments Hematocrit (test code = 4544-3) 39.2 34.2-44.1 [facility] CenterMean Corpuscular Zozhcg4406-49-51 20:43:00* Test Item Value Reference Range Interpretation Comments Mean Corpuscular Volume (test code = 787-2) 97.0 81-99 [facility] CenterMean Corpuscular Vwbeowenog7482-25-34 20:43:00* Test Item Value Reference Range Interpretation Comments Mean Corpuscular Hemoglobin (test code = 785-6) 33.2 28-32 H [facility] CenterMean Corpuscular Hemoglobin Concent 2019-01-29 20:43:00* Test Item Value Reference Range Interpretation Comments Mean Corpuscular Hemoglobin Concent (test code = 786-4) 34.2 31-35 [facility] CenterRed Cell Distribution Tbkab0232-79-30 20:43:00* Test Item Value Reference Range Interpretation Comments Red Cell Distribution Width (test code = 40983-0) 12.3 11.7 -14.4 [facility] CenterPlatelet Xvsbx6342-93-57 20:43:00* Test Item Value Reference Range Interpretation Comments Platelet Count (test code = 777-3) 295 140-360 [facility] CenterNeutrophils (%) (Auto)2019-01-29 20:43:00 * Test Item Value Reference Range Interpretation Comments Neutrophils (%) (Auto) (test code = 38217-1) 70.4 38.7-80.0 [facility] CenterLymphocytes (%) (Auto)2019-01-29 20:43:00 * Test Item Value Reference Range Interpretation Comments Lymphocytes (%) (Auto) (test code = 736-9) 18.5 18.0-39.1 [facility] CenterMonocytes (%) (Auto)2019-01-29 20:43:00* Test Item Value Reference Range Interpretation Comments Monocytes (%) (Auto) (test code = 5905-5) 9.4 4.4-11.3 [facility] CenterEosinophils (%) (Auto)2019-01-29 20:43:00 * Test Item Value Reference Range Interpretation Comments Eosinophils (%) (Auto) (test code = 713-8) 0.7 0.0-6.0 [facility] CenterBasophils (%) (Auto)2019-01-29 20:43:00* Test Item Value Reference Range Interpretation Comments Basophils (%) (Auto) (test code = 706-2) 0.5 0.0-1.0 [facility] CenterIM GRANULOCYTES %2019-01-29 20:43:00* Test Item Value Reference Range Interpretation Comments IM GRANULOCYTES % (test code = IM GRANULOCYTES %) 0.5 0.0- 1.0 [facility] CenterNeutrophils # (Auto)2019-01-29 20:43:00* Test Item Value Reference Range Interpretation Comments Neutrophils # (Auto) (test code = 751-8) 7.6 2.1-6.9 H [facility] CenterLymphocytes # (Auto)2019-01-29 20:43:00* Test Item Value Reference Range Interpretation Comments Lymphocytes # (Auto) (test code = 40699-6) 2.0 1.0-3.2 [facility] CenterMonocytes # (Auto)2019-01-29 20:43:00* Test Item Value Reference Range Interpretation Comments Monocytes # (Auto) (test code = 742-7) 1.0 0.2-0.8 H [facility] CenterEosinophils # (Auto)2019-01-29 20:43:00* Test Item Value Reference Range Interpretation Comments Eosinophils # (Auto) (test code = 711-2) 0.1 0.0-0.4 [facility] CenterBasophils # (Auto)2019-01-29 20:43:00* Test Item Value Reference Range Interpretation Comments Basophils # (Auto) (test code = 704-7) 0.1 0.0-0.1 [facility] CenterAbsolute Immature Granulocyte (auto 2019-01-29 20:43:00* Test Item Value Reference Range Interpretation Comments Absolute Immature Granulocyte (auto (aury t code = Absolute Immature Granulocyte (auto) 0.05 0-0.1 [facility] CenterCT BRAIN XS9885-86-40 23:37:00 [facility] [address] [address] Patient Name: LADONNA DAN MR #: [id number] : 1945 Age/Sex: 72/F Req #: [id number] Adm Physician: Ordered by: NATE GOMEZ MD Report #: [id number] Location: ER Room/Bed: Procedure: [id number] CT/CT [...] 11:40 PM Dictated By: DALE OCHOA MD 37 Transcribed By: MERI on 07/13/180 COPY TO: NATE GOMEZ MD Urine [id number] 20:23:00* Test Item Value Reference Range Interpretation Comments Urine WBC (test code = 5821-4) NONE 0-5 [facility] CenterUrine SFL6745-67-52 20:23:00* Test Item Value Reference Range Interpretation Comments Urine RBC (test code = 28477-2) NONE 0-5 [facility] CenterUrine Rrrnokaj6627-89-67 20:23:00* Test Item Value Reference Range Interpretation Comments Urine Bacteria (test code = 75426-8) NONE NONE [facility] CenterUrine Epithelial Iufnh3887-69-26 20:23:00 * Test Item Value Reference Range Interpretation Comments Urine Epithelial Cells (test code = 87761-2) MANY NONE [facility] CenterUrine Transitional Epithelial Cells 2018-07-13 20:23:00* Test Item Value Reference Range Interpretation Comments Urine Transitional Epithelial Cells (test code = 8249-5) MODERATE NONE H [facility] CenterUrine Renal Epithelial Kitwb9221-75-17 20:23:00* Test Item Value Reference Range Interpretation Comments Urine Renal Epithelial Cells (test code = 17189-6) FEW NON E H [facility] CenterUrine Transitional Epithelial Cells 2018-07-13 20:23:00* Test Item Value Reference Range Interpretation Comments Urine Transitional Epithelial Cells (test code = 8249-5) MODERATE NONE [facility]helial Jicjz7122-04-84 20:23:00* Test Item Value Reference Range Interpretation Comments Urine Renal Epithelial Cells (test code = 30981-1) FEW NON E H [facility] CenterUrine Yhoxi4525-16-29 20:12:00* Test Item Value Reference Range Interpretation Comments Urine Color (test code = 5778-6) YELLOW YELLOW [facility] CenterUrine Jarsdld8696-24-49 20:12:00* Test Item Value Reference Range Interpretation Comments Urine Clarity (test code = 81251-4) CLEAR CLEAR [facility] Specific Qnlrjgp5867-54-34 20:12:00 * Test Item Value Reference Range Interpretation Comments Urine Specific [place] (test code = 5811-5) 1.010 1.010-1.02 5 [facility] CenterUrine nX5250-42-21 20:12:00* Test Item Value Reference Range Interpretation Comments Urine pH (test code = 27707-9) 6 5-7 [facility] CenterUrine Leukocyte Lrrufgow5648-32-81 20:12:00* Test Item Value Reference Range Interpretation Comments Urine Leukocyte Esterase (test code = 5799-2) TRACE NEGATIVE H [facility] Eyozqnh3360-35-58 20:12:00* Test Item Value Reference Range Interpretation Comments Urine Nitrite (test code = 25517-8) NEGATIVE NEGATIVE [facility] CenterUrine Xrhesqu8719-70-06 20:12:00* Test Item Value Reference Range Interpretation Comments Urine Protein (test code = 5804-0) NEGATIVE NEGATIVE [facility] CenterUrine Glucose (UA)2018-07-13 20:12:00* Test Item Value Reference Range Interpretation Comments Urine Glucose (UA) (test code = 2349-9) NEGATIVE NEGATIVE [facility] CenterUrine Wczlajd2570-60-70 20:12:00* Test Item Value Reference Range Interpretation Comments Urine Ketones (test code = 99999-7) NEGATIVE NEGATIVE [facility] CenterUrine Hwbltsdheacq0866-48-77 20:12:00* Test Item Value Reference Range Interpretation Comments Urine Urobilinogen (test code = 53404-9) 0.2 0.2-1 [facility] Wpwjqyeup9601-86-87 20:12:00* Test Item Value Reference Range Interpretation Comments Urine Bilirubin (test code = 1978-6) NEGATIVE NEGATIVE [facility] CenterUrine Yyvmn5590-91-05 20:12:00* Test Item Value Reference Range Interpretation Comments Urine Blood (test code = 83332-6) NEGATIVE NEGATIVE [facility] CenterCHEST SINGLE (PORTABLE)2018-07-13 19:40:00 [facility] [address] [address] Patient Name: LADONNA DAN MR #: [id number] : 1945 Age/Sex: 72/F Req #: [id number] Adm Physician: Ordered by: NANDO ANGEL MD Report #: [id number] Location: ER Room/Bed: Procedure: [id number] DX/CHEST SINGLE (PORTABLE) Exam Date: 07/13/18 Saji m Time: 1824 REPORT STATUS: Signed EXAMINATION: CHEST SINGLE (PORTABLE) INDICATION: CHEST APPLE N [id number] Y COMPARISON: 01/12/2018 FINDINGS: AP vi [...] COPY TO: NANDO ANGEL MD B-Type Natriuretic Jnqueck0717-59-54 19:06:00* Test Item Value Reference Range Interpretation Comments B-Type Natriuretic Peptide (test code = 62643-4) 23.6 0-100 [facility] CenterB-Type Natriuretic Nerjuqr4514-70-91 19:06:00* Test Item Value Reference Range Interpretation Comments B-Type Natriuretic Peptide (test code = 41282-5) 23.6 0-100 [facility] CenterCreatine Kinase DG2355-56-77 18:57:00* Test Item Value Reference Range Interpretation Comments Creatine Kinase MB (test code = 99921-8) 1.50 0-5.0 [facility] CenterTroponin S0363-40-79 18:57:00* Test Item Value Reference Range Interpretation Comments Troponin I (test code = LMY9515) 0.011 0-0.300 [facility]viewodium Fyomw5429-08-54 18:50:00* Test Item Value Reference Range Interpretation Comments Sodium Level (test code = 2951-2) 130 136-145 L [facility] CenterPotassium Bjvxt7330-11-26 18:50:00* Test Item Value Reference Range Interpretation Comments Potassium Level (test code = 2823-3) 3.6 3.5-5.1 [facility] CenterChloride Watsg0564-06-93 18:50:00* Test Item Value Reference Range Interpretation Comments Chloride Level (test code = 2075-0) 94 98-107 L [facility] CenterCarbon Dioxide Xbpem4992-11-07 18:50:00* Test Item Value Reference Range Interpretation Comments Carbon Dioxide Level (test code = 2028-9) 23 22-29 [facility] CenterAnion Toi0855-14-54 18:50:00* Test Item Value Reference Range Interpretation Comments Anion Gap (test code = 16945-6) 16.6 8-16 H [facility] CenterBlood Urea Kqhkoxfw5267-09-56 18:50:00* Test Item Value Reference Range Interpretation Comments Blood Urea Nitrogen (test code = 3094-0) 10 7-26 [facility] CenterCreatinine2019-01-04 18:50:00* Test Item Value Reference Range Interpretation Comments Creatinine (test code = 2160-0) 0.90 0.57-1.11 [facility] CenterBUN/Creatinine Malkx9112-24-46 18:50:00* Test Item Value Reference Range Interpretation Comments BUN/Creatinine Ratio (test code = 3097-3) 11 6-25 [facility] CenterEstimat Glomerular Filtration Rate 2018-07-13 18:50:00* Test Item Value Reference Range Interpretation Comments Estimat Glomerular Filtration Rate (test code = 939891559) > 60 >60 Ranges were taken from the National Kidney Disease Education Program and the [facility] Kid[facility] Foundation literature.Reference ranges:60 or greater: Pcqrbx94-42 ( for 3 consecutive months): Chronic kidney disease 15 or less: Kidney failureMethod[facility] CenterGlucose Xcrtk9176-91-46 18:50:00* Test Item Value Reference Range Interpretation Comments Glucose Level (test code = LMT5483) 98 74-118 [facility] CenterCalcium Udqwg9690-08-20 18:50:00* Test Item Value Reference Range Interpretation Comments Calcium Level (test code = 91557-0) 9.5 8.4-10.2 [facility] CenterTotal Jjxueqcxq0069-14-43 18:50:00* Test Item Value Reference Range Interpretation Comments Total Bilirubin (test code = 1975-2) 0.4 0.2-1.2 [facility] CenterAspartate Amino Transf (AST/SGOT) 2018-07-13 18:50:00* Test Item Value Reference Range Interpretation Comments Aspartate Amino Transf (AST/SGOT) (test code = Aspartate Amino Transf (AST/SGOT)) 27 5-34 [facility] CenterAlanine Aminotransferase (ALT/SGPT) 2018-07-13 18:50:00* Test Item Value Reference Range Interpretation Comments Alanine Aminotransferase (ALT/SGPT) (test code = 1742-6) 46 0-55 [facility] CenterTotal Xaqraqf2626-42-19 18:50:00* Test Item Value Reference Range Interpretation Comments Total Protein (test code = 2885-2) 7.6 6.5-8.1 [facility] CenterAlbumin2019-01-04 18:50:00* Test Item Value Reference Range Interpretation Comments Albumin (test code = 1751-7) 4.2 3.5-5.0 [facility] CenterGlobulin2019-01-04 18:50:00* Test Item Value Reference Range Interpretation Comments Globulin (test code = 25766-6) 3.4 2.3-3.5 [facility] CenterAlbumin/Globulin Xfttw3700-73-20 18:50:00 * Test Item Value Reference Range Interpretation Comments Albumin/Globulin Ratio (test code = 1759-0) 1.2 0.8-2.0 [facility] CenterAlkaline Hsgsxzydbsp9287-65-21 18:50:00* Test Item Value Reference Range Interpretation Comments Alkaline Phosphatase (test code = 6768-6) 57 40-150 [facility] CenterCreatine Lnopuv0879-01-49 18:50:00* Test Item Value Reference Range Interpretation Comments Creatine Kinase (test code = 2157-6) 52 29-168 [facility] CenterProthrombin Gome1941-99-29 18:42:00* Test Item Value Reference Range Interpretation Comments Prothrombin Time (test code = 5902-2) 12.5 11.9-14.5 [facility] CenterProthromb Time International Ratio 2018-07-13 18:42:00* Test Item Value Reference Range Interpretation Comments Prothromb Time International Ratio (test code = 6301-6) 0.86 Oral Anticoagulant Therapy INR Values:1. Low Intensity Therapy 1.5 - 2.02 . Moderate Intensity Therapy 2.0 - 3.03. High Intensity Therapy(1) 2.5 - 3. 54. High Intensity Therapy(2) 3.0 - 4.05. Panic Value INR > 5.0 [facility] CenterActivated Partial Thromboplast Time 2018-07-13 18:42:00* Test Item Value Reference Range Interpretation Comments Activated Partial Thromboplast Time (test code = 80722-2) 24.9 23.8-35.5 [facility] CenterWhite Blood Nxsuw7448-55-25 18:36:00* Test Item Value Reference Range Interpretation Comments White Blood Count (test code = 6690-2) 6.69 4.8-10.8 [facility] CenterRed Blood Ijsgm6033-64-40 18:36:00* Test Item Value Reference Range Interpretation Comments Red Blood Count (test code = 789-8) 3.89 3.6-5.1 [facility] CenterHemoglobin2019-01-04 18:36:00* Test Item Value Reference Range Interpretation Comments Hemoglobin (test code = 08628-8) 13.2 12.0-16.0 [facility] CenterHematocrit2019-01-04 18:36:00* Test Item Value Reference Range Interpretation Comments Hematocrit (test code = 4544-3) 37.8 34.2-44.1 [facility] CenterMean Corpuscular Tjxatx5133-37-74 18:36:00* Test Item Value Reference Range Interpretation Comments Mean Corpuscular Volume (test code = 787-2) 97.2 81-99 [facility] CenterMean Corpuscular Nfglnkvqqp9221-43-32 18:36:00* Test Item Value Reference Range Interpretation Comments Mean Corpuscular Hemoglobin (test code = 785-6) 33.9 28-32 H [facility] CenterMean Corpuscular Hemoglobin Concent 2018-07-13 18:36:00* Test Item Value Reference Range Interpretation Comments Mean Corpuscular Hemoglobin Concent (test code = 786-4) 34.9 31-35 [facility] CenterRed Cell Distribution Ewwml4671-01-78 18:36:00* Test Item Value Reference Range Interpretation Comments Red Cell Distribution Width (test code = 16304-0) 12.7 11.7 -14.4 [facility] CenterPlatelet Jumdg4010-50-59 18:36:00* Test Item Value Reference Range Interpretation Comments Platelet Count (test code = 777-3) 257 140-360 [facility] CenterNeutrophils (%) (Auto)2018-07-13 18:36:00 * Test Item Value Reference Range Interpretation Comments Neutrophils (%) (Auto) (test code = 77650-4) 58.2 38.7-80.0 [facility] CenterLymphocytes (%) (Auto)2018-07-13 18:36:00 * Test Item Value Reference Range Interpretation Comments Lymphocytes (%) (Auto) (test code = 736-9) 30.8 18.0-39.1 [facility] CenterMonocytes (%) (Auto)2018-07-13 18:36:00* Test Item Value Reference Range Interpretation Comments Monocytes (%) (Auto) (test code = 5905-5) 9.6 4.4-11.3 [facility] CenterEosinophils (%) (Auto)2018-07-13 18:36:00 * Test Item Value Reference Range Interpretation Comments Eosinophils (%) (Auto) (test code = 713-8) 0.7 0.0-6.0 [facility] CenterBasophils (%) (Auto)2018-07-13 18:36:00* Test Item Value Reference Range Interpretation Comments Basophils (%) (Auto) (test code = 706-2) 0.4 0.0-1.0 [facility] CenterIM GRANULOCYTES %2018-07-13 18:36:00* Test Item Value Reference Range Interpretation Comments IM GRANULOCYTES % (test code = IM GRANULOCYTES %) 0.3 0.0- 1.0 [facility] CenterNeutrophils # (Auto)2018-07-13 18:36:00* Test Item Value Reference Range Interpretation Comments Neutrophils # (Auto) (test code = 751-8) 3.9 2.1-6.9 [facility] CenterLymphocytes # (Auto)2018-07-13 18:36:00* Test Item Value Reference Range Interpretation Comments Lymphocytes # (Auto) (test code = 73101-0) 2.1 1.0-3.2 [facility] CenterMonocytes # (Auto)2018-07-13 18:36:00* Test Item Value Reference Range Interpretation Comments Monocytes # (Auto) (test code = 742-7) 0.6 0.2-0.8 [facility] CenterEosinophils # (Auto)2018-07-13 18:36:00* Test Item Value Reference Range Interpretation Comments Eosinophils # (Auto) (test code = 711-2) 0.1 0.0-0.4 [facility] CenterBasophils # (Auto)2018-07-13 18:36:00* Test Item Value Reference Range Interpretation Comments Basophils # (Auto) (test code = 704-7) 0.0 0.0-0.1 [facility] CenterAbsolute Immature Granulocyte (auto 2018-07-13 18:36:00* Test Item Value Reference Range Interpretation Comments Absolute Immature Granulocyte (auto (aury t code = Absolute Immature Granulocyte (auto) 0.02 0-0.1 [facility]viewodium Vgjsx8435-82-74 05:59:00* Test Item Value Reference Range Interpretation Comments Sodium Level (test code = 2951-2) 140 136-145 [facility] CenterPotassium Rdjyh6477-24-33 05:59:00* Test Item Value Reference Range Interpretation Comments Potassium Level (test code = 2823-3) 3.8 3.5-5.1 [facility] CenterChloride Apazi8857-56-09 05:59:00* Test Item Value Reference Range Interpretation Comments Chloride Level (test code = 2075-0) 102 98-107 [facility] CenterCarbon Dioxide Mxrxb8322-19-27 05:59:00* Test Item Value Reference Range Interpretation Comments Carbon Dioxide Level (test code = 2028-9) 27 22-29 [facility] CenterAnion Kwu3115-68-73 05:59:00* Test Item Value Reference Range Interpretation Comments Anion Gap (test code = 81112-0) 14.8 8-16 [facility] CenterBlood Urea Chvpznfy1343-94-77 05:59:00* Test Item Value Reference Range Interpretation Comments Blood Urea Nitrogen (test code = 3094-0) 12 02-01 [facility] CenterCreatinine2018-07-09 05:59:00* Test Item Value Reference Range Interpretation Comments Creatinine (test code = 2160-0) 0.98 0.57-1.11 [facility] CenterBUN/Creatinine Gdmpx7215-49-77 05:59:00* Test Item Value Reference Range Interpretation Comments BUN/Creatinine Ratio (test code = 3097-3) 12 01-01 [facility] CenterEstimat Glomerular Filtration Rate 2018-01-15 05:59:00* Test Item Value Reference Range Interpretation Comments Estimat Glomerular Filtration Rate (test code = 04156-7) 55 >60 L Ranges were taken from the National Kidney Disease Education Program and the [facility] Kidney Foundation literature.Reference ranges:60 or greater: Yykksd37-25 ( for 3 consecutive months): Chronic kidney disease 15 or less: Kidney failureMethodist Mansfield Medical CenterGlucose Oansh0241-22-88 05:59:00* Test Item Value Reference Range Interpretation Comments Glucose Level (test code = YNS1697) 97 74-118 [facility] CenterCalcium Rbxex7177-82-34 05:59:00* Test Item Value Reference Range Interpretation Comments Calcium Level (test code = 97839-2) 10.2 8.4-10.2 [facility] CenterWhite Blood Ccqri3709-39-83 05:33:00* Test Item Value Reference Range Interpretation Comments White Blood Count (test code = 6690-2) 8.24 4.8-10.8 [facility] CenterRed Blood Jekrv3852-91-91 05:33:00* Test Item Value Reference Range Interpretation Comments Red Blood Count (test code = 789-8) 4.01 3.6-5.1 [facility] CenterHemoglobin2018-07-09 05:33:00* Test Item Value Reference Range Interpretation Comments Hemoglobin (test code = 92025-0) 13.6 12.0-16.0 [facility] CenterHematocrit2018-07-09 05:33:00* Test Item Value Reference Range Interpretation Comments Hematocrit (test code = 4544-3) 40.0 34.2-44.1 [facility] CenterMean Corpuscular Uysqey2337-41-60 05:33:00* Test Item Value Reference Range Interpretation Comments Mean Corpuscular Volume (test code = 787-2) 99.8 81-99 H [facility] CenterMean Corpuscular Yienknkuie1501-97-74 05:33:00* Test Item Value Reference Range Interpretation Comments Mean Corpuscular Hemoglobin (test code = 785-6) 33.9 28-32 H [facility] CenterMean Corpuscular Hemoglobin Concent 2018-01-15 05:33:00* Test Item Value Reference Range Interpretation Comments Mean Corpuscular Hemoglobin Concent (test code = 786-4) 34.0 31-35 [facility] CenterRed Cell Distribution Pgxdv8117-12-50 05:33:00* Test Item Value Reference Range Interpretation Comments Red Cell Distribution Width (test code = 99321-0) 12.7 11.7 -14.4 [facility] CenterPlatelet Gxinf6317-68-33 05:33:00* Test Item Value Reference Range Interpretation Comments Platelet Count (test code = 777-3) 301 140-360 [facility] CenterNeutrophils (%) (Auto)2018-01-15 05:33:00 * Test Item Value Reference Range Interpretation Comments Neutrophils (%) (Auto) (test code = 45660-7) 50.6 38.7-80.0 [facility] CenterLymphocytes (%) (Auto)2018-01-15 05:33:00 * Test Item Value Reference Range Interpretation Comments Lymphocytes (%) (Auto) (test code = 736-9) 33.7 18.0-39.1 [facility] CenterMonocytes (%) (Auto)2018-01-15 05:33:00* Test Item Value Reference Range Interpretation Comments Monocytes (%) (Auto) (test code = 5905-5) 13.1 4.4-11.3 H [facility] CenterEosinophils (%) (Auto)2018-01-15 05:33:00 * Test Item Value Reference Range Interpretation Comments Eosinophils (%) (Auto) (test code = 713-8) 1.7 0.0-6.0 [facility] CenterBasophils (%) (Auto)2018-01-15 05:33:00* Test Item Value Reference Range Interpretation Comments Basophils (%) (Auto) (test code = 706-2) 0.5 0.0-1.0 [facility] CenterIM GRANULOCYTES %2018-01-15 05:33:00* Test Item Value Reference Range Interpretation Comments IM GRANULOCYTES % (test code = IM GRANULOCYTES %) 0.4 0.0- 1.0 [facility] CenterNeutrophils # (Auto)2018-01-15 05:33:00* Test Item Value Reference Range Interpretation Comments Neutrophils # (Auto) (test code = 751-8) 4.2 2.1-6.9 [facility] CenterLymphocytes # (Auto)2018-01-15 05:33:00* Test Item Value Reference Range Interpretation Comments Lymphocytes # (Auto) (test code = 03825-5) 2.8 1.0-3.2 [facility] CenterMonocytes # (Auto)2018-01-15 05:33:00* Test Item Value Reference Range Interpretation Comments Monocytes # (Auto) (test code = 742-7) 1.1 0.2-0.8 H [facility] CenterEosinophils # (Auto)2018-01-15 05:33:00* Test Item Value Reference Range Interpretation Comments Eosinophils # (Auto) (test code = 711-2) 0.1 0.0-0.4 [facility] CenterBasophils # (Auto)2018-01-15 05:33:00* Test Item Value Reference Range Interpretation Comments Basophils # (Auto) (test code = 704-7) 0.0 0.0-0.1 [facility] CenterAbsolute Immature Granulocyte (auto 2018-01-15 05:33:00* Test Item Value Reference Range Interpretation Comments Absolute Immature Granulocyte (auto (aury t code = Absolute Immature Granulocyte (auto) 0.03 0-0.1 [facility] CenterCreatine Kinase WJ2541-18-02 11:36:00* Test Item Value Reference Range Interpretation Comments Creatine Kinase MB (test code = 29074-9) 1.20 0-5.0 [facility] CenterTroponin G1595-94-92 11:36:00* Test Item Value Reference Range Interpretation Comments Troponin I (test code = JND4568) -0.001 0-0.300 [facility] CenterCreatine Iktiyr6646-39-07 11:31:00* Test Item Value Reference Range Interpretation Comments Creatine Kinase (test code = 2157-6) 51 29-168 [facility] CenterCTA DEEY8322-42-13 02:14:00 [place] [address] Patient Name: LADONNA DAN MR #: [id number] : 1945 Age/Sex: 72/F Req #: [id number] Adm Physician: WOODROW ENCINAS MD Ordered by: GISELLE FAYE MD Report #: [id number] Loca tion: MED/SURG3 Room/Bed: [facility] Procedure: [id number] CT/CTA NECK Exam Date: 01/13/18 Exam Time: [...] 0220 COPY TO: GISELLE FAYE MD Urine NCQ3716-49-97 13:34:00* Test Item Value Reference Range Interpretation Comments Urine WBC (test code = 5821-4) 6-10 0-5 H [facility] CenterUrine WAX2823-48-79 13:34:00* Test Item Value Reference Range Interpretation Comments Urine RBC (test code = 96043-6) 11-20 0-5 H [facility] CenterUrine Fgkikanx9871-71-26 13:34:00* Test Item Value Reference Range Interpretation Comments Urine Bacteria (test code = 32120-5) RARE NONE [facility] CenterUrine Epithelial Tfmrq2755-04-39 13:34:00 * Test Item Value Reference Range Interpretation Comments Urine Epithelial Cells (test code = 30270-2) FEW NONE [facility] CenterUrine Pbzfq9127-15-52 13:23:00* Test Item Value Reference Range Interpretation Comments Urine Color (test code = 5778-6) YELLOW YELLOW [facility] CenterUrine Ualneda4257-68-41 13:23:00* Test Item Value Reference Range Interpretation Comments Urine Clarity (test code = 69950-1) CLEAR CLEAR [facility] CenterUrine Specific Hhkdsla7467-74-52 13:23:00 * Test Item Value Reference Range Interpretation Comments Urine Specific [place] (test code = 5811-5) 1.005 1.010-1.02 5 L [facility] CenterUrine gM2169-41-80 13:23:00* Test Item Value Reference Range Interpretation Comments Urine pH (test code = 25747-3) 7 5-7 [facility] CenterUrine Leukocyte Ytdjalls4799-04-15 13:23:00* Test Item Value Reference Range Interpretation Comments Urine Leukocyte Esterase (test code = 5799-2) NEGATIVE NEGATIVE [facility] Iulocmc0043-28-04 13:23:00* Test Item Value Reference Range Interpretation Comments Urine Nitrite (test code = 39953-0) NEGATIVE NEGATIVE [facility] Mlfiflx0158-56-54 13:23:00* Test Item Value Reference Range Interpretation Comments Urine Protein (test code = 5804-0) NEGATIVE NEGATIVE [facility] CenterUrine Glucose (UA)2018-01-12 13:23:00* Test Item Value Reference Range Interpretation Comments Urine Glucose (UA) (test code = 2349-9) NEGATIVE NEGATIVE [facility] CenterUrine Ygmihtw7241-61-44 13:23:00* Test Item Value Reference Range Interpretation Comments Urine Ketones (test code = 97885-2) NEGATIVE NEGATIVE [facility] CenterUrine Gplavmxgpjtf2685-62-06 13:23:00* Test Item Value Reference Range Interpretation Comments Urine Urobilinogen (test code = 33095-1) 0.2 0.2-1 [facility] CenterUrine Tdyxjolhg7888-27-18 13:23:00* Test Item Value Reference Range Interpretation Comments Urine Bilirubin (test code = 1978-6) NEGATIVE NEGATIVE [facility] Yvhse4536-43-14 13:23:00* Test Item Value Reference Range Interpretation Comments Urine Blood (test code = 92877-4) 4+ NEGATIVE H [facility] CenterUrine Transitional Epithelial Cells 2018-01-12 12:13:00* Test Item Value Reference Range Interpretation Comments Urine Transitional Epithelial Cells (test code = 8249-5) FEW NONE H [facility] CenterUrine Amorphous Ogmgferb0777-00-65 12:13:00* Test Item Value Reference Range Interpretation Comments Urine Amorphous Sediment (test code = 8246-1) RARE FEW [facility] CenterUrine Amorphous Snlepikl6916-04-67 12:13:00* Test Item Value Reference Range Interpretation Comments Urine Amorphous Sediment (test code = 8246-1) RARE FEW [facility] CenterB-Type Natriuretic Aiqngek4197-43-97 12:10:00* Test Item Value Reference Range Interpretation Comments B-Type Natriuretic Peptide (test code = 27917-9) 164.0 0-100 H [facility] CenterCHEST SINGLE (PORTABLE)2018-01-12 12:08:00 [place] [address] Patient Name: LADONNA DAN MR #: [id number] : 1945 Age/Sex: 72/F Req #: [id number] Adm Physician: Ordered by: ROSA SARABIA Report #: [id number] Location: ER Room/Bed: Procedure: [id number] DX/CHEST SINGLE (PORTABLE) Exam Date: Exam Time: [...] ELLEN on 01/12/18 1208 COPY TO: ROSA SRAABIA Magnesium Laqfy5620-32-85 12:01:00* Test Item Value Reference Range Interpretation Comments Magnesium Level (test code = 21797-7) 1.5 1.3-2.1 [facility] CenterTotal Jemneeohs5728-90-45 12:01:00* Test Item Value Reference Range Interpretation Comments Total Bilirubin (test code = 1975-2) 0.7 0.2-1.2 [facility] CenterAspartate Amino Transf (AST/SGOT) 2018-01-12 12:01:00* Test Item Value Reference Range Interpretation Comments Aspartate Amino Transf (AST/SGOT) (test code = Aspartate Amino Transf (AST/SGOT)) 36 5-34 H [facility] CenterAlanine Aminotransferase (ALT/SGPT) 2018-01-12 12:01:00* Test Item Value Reference Range Interpretation Comments Alanine Aminotransferase (ALT/SGPT) (test code = 1742-6) 41 0-55 [facility] CenterTotal Gytairq1807-82-04 12:01:00* Test Item Value Reference Range Interpretation Comments Total Protein (test code = 2885-2) 7.8 6.5-8.1 [facility] CenterAlbumin2018-07-06 12:01:00* Test Item Value Reference Range Interpretation Comments Albumin (test code = 1751-7) 4.1 3.5-5.0 [facility] CenterGlobulin2018-07-06 12:01:00* Test Item Value Reference Range Interpretation Comments Globulin (test code = 34981-8) 3.7 2.3-3.5 H [facility] CenterAlbumin/Globulin Bsupo0829-31-58 12:01:00 * Test Item Value Reference Range Interpretation Comments Albumin/Globulin Ratio (test code = 1759-0) 1.1 0.8-2.0 [facility] CenterAlkaline Qaucvggniiv2204-82-83 12:01:00* Test Item Value Reference Range Interpretation Comments Alkaline Phosphatase (test code = 6768-6) 56 40-150 [facility] CenterMagnesium Lrgsw4641-21-53 12:01:00* Test Item Value Reference Range Interpretation Comments Magnesium Level (test code = 39584-5) 1.5 1.3-2.1 [facility] CenterProthrombin Rkvv8744-91-43 11:56:00* Test Item Value Reference Range Interpretation Comments Prothrombin Time (test code = 5902-2) 12.5 11.9-14.5 [facility] CenterProthromb Time International Ratio 2018-01-12 11:56:00* Test Item Value Reference Range Interpretation Comments Prothromb Time International Ratio (test code = 6301-6) 1.01 Oral Anticoagulant Therapy INR Values:1. Low Intensity Therapy 1.5 - 2.02 . Moderate Intensity Therapy 2.0 - 3.03. High Intensity Therapy(1) 2.5 - 3. 54. High Intensity Therapy(2) 3.0 - 4.05. Panic Value INR > 5.0 [facility] CenterActivated Partial Thromboplast Time 2018-01-12 11:56:00* Test Item Value Reference Range Interpretation Comments Activated Partial Thromboplast Time (test code = 04398-9) 25.9 23.8-35.5 [facility] CenterCreatine Kinase NB6600-91-23 07:55:00* Test Item Value Reference Range Interpretation Comments Creatine Kinase MB (test code = 30418-5) 1.50 0-5.0 [facility] CenterTroponin S8997-62-67 07:55:00* Test Item Value Reference Range Interpretation Comments Troponin I (test code = YTB4534) -0.001 0-0.300 [facility] CenterCreatine Ewebue0588-09-15 07:47:00* Test Item Value Reference Range Interpretation Comments Creatine Kinase (test code = 2157-6) 60 29-168 [facility]viewodium Aqtpm7914-23-00 07:31:00* Test Item Value Reference Range Interpretation Comments Sodium Level (test code = 2951-2) 140 136-145 [facility] CenterPotassium Pfxct1785-11-87 07:31:00* Test Item Value Reference Range Interpretation Comments Potassium Level (test code = 2823-3) 4.1 3.5-5.1 [facility] CenterChloride Ctojg2158-87-29 07:31:00* Test Item Value Reference Range Interpretation Comments Chloride Level (test code = 2075-0) 108 98-107 H [facility] CenterCarbon Dioxide Ohfxa1968-86-53 07:31:00* Test Item Value Reference Range Interpretation Comments Carbon Dioxide Level (test code = 2028-9) 26 22-29 [facility] CenterAnion Pss6927-22-04 07:31:00* Test Item Value Reference Range Interpretation Comments Anion Gap (test code = 90777-7) 10.1 8-16 [facility] CenterBlood Urea Cqhcgoia9866-02-96 07:31:00* Test Item Value Reference Range Interpretation Comments Blood Urea Nitrogen (test code = 3094-0) 8 7-26 [facility] CenterCreatinine2018-07-03 07:31:00* Test Item Value Reference Range Interpretation Comments Creatinine (test code = 2160-0) 0.80 0.57-1.11 [facility] CenterBUN/Creatinine Lplmk2797-14-15 07:31:00* Test Item Value Reference Range Interpretation Comments BUN/Creatinine Ratio (test code = 3097-3) 10 6-25 [facility] CenterEstimat Glomerular Filtration Rate 2018-01-09 07:31:00* Test Item Value Reference Range Interpretation Comments Estimat Glomerular Filtration Rate (test code = 44019-5) 60- >60 Ranges were taken from the National Kidney Disease Education Program and the [facility], [facility] [employer] Foundation literature.Reference ranges:60 or greater: Idmuil02-76 ( for 3 consecutive months): Chronic kidney disease 15 or less: Kidney failureMethodist [facility]field Medical CenterGlucose Dqdxz2536-91-79 07:31:00* Test Item Value Reference Range Interpretation Comments Glucose Level (test code = NXE1136) 104 74-118 [facility] CenterCalcium Vupdh1506-03-76 07:31:00* Test Item Value Reference Range Interpretation Comments Calcium Level (test code = 10284-2) 9.0 8.4-10.2 [facility] CenterTotal Ajrkbaqwl8867-37-23 07:31:00* Test Item Value Reference Range Interpretation Comments Total Bilirubin (test code = 1975-2) 0.3 0.2-1.2 [facility] CenterAspartate Amino Transf (AST/SGOT) 2018-01-09 07:31:00* Test Item Value Reference Range Interpretation Comments Aspartate Amino Transf (AST/SGOT) (test code = Aspartate Amino Transf (AST/SGOT)) 18 5-34 [facility] CenterAlanine Aminotransferase (ALT/SGPT) 2018-01-09 07:31:00* Test Item Value Reference Range Interpretation Comments Alanine Aminotransferase (ALT/SGPT) (test code = 1742-6) 26 0-55 [facility] CenterTotal Foqqsch3994-13-39 07:31:00* Test Item Value Reference Range Interpretation Comments Total Protein (test code = 2885-2) 6.2 6.5-8.1 L [facility] CenterAlbumin2018-07-03 07:31:00* Test Item Value Reference Range Interpretation Comments Albumin (test code = 1751-7) 3.4 3.5-5.0 L [facility] CenterGlobulin2018-07-03 07:31:00* Test Item Value Reference Range Interpretation Comments Globulin (test code = 63975-6) 2.8 2.3-3.5 [facility] CenterAlbumin/Globulin Ccenc9117-31-92 07:31:00 * Test Item Value Reference Range Interpretation Comments Albumin/Globulin Ratio (test code = 1759-0) 1.2 0.8-2.0 [facility] CenterAlkaline Wzyrxikzhwg3423-07-50 07:31:00* Test Item Value Reference Range Interpretation Comments Alkaline Phosphatase (test code = 6768-6) 57 40-150 [facility] CenterWhite Blood Czijr2712-73-58 06:57:00* Test Item Value Reference Range Interpretation Comments White Blood Count (test code = 6690-2) 7.30 4.8-10.8 [facility] CenterRed Blood Rjhlt1367-96-83 06:57:00* Test Item Value Reference Range Interpretation Comments Red Blood Count (test code = 789-8) 3.42 3.6-5.1 L [facility] CenterHemoglobin2018-07-03 06:57:00* Test Item Value Reference Range Interpretation Comments Hemoglobin (test code = 95215-3) 11.6 12.0-16.0 L [facility] CenterHematocrit2018-07-03 06:57:00* Test Item Value Reference Range Interpretation Comments Hematocrit (test code = 4544-3) 34.3 34.2-44.1 [facility] CenterMean Corpuscular Eisawq2490-73-69 06:57:00* Test Item Value Reference Range Interpretation Comments Mean Corpuscular Volume (test code = 787-2) 100.3 81-99 H [facility] CenterMean Corpuscular Sgsiwlrlrl0371-77-91 06:57:00* Test Item Value Reference Range Interpretation Comments Mean Corpuscular Hemoglobin (test code = 785-6) 33.9 28-32 H [facility] CenterMean Corpuscular Hemoglobin Concent 2018-01-09 06:57:00* Test Item Value Reference Range Interpretation Comments Mean Corpuscular Hemoglobin Concent (test code = 786-4) 33.8 31-35 [facility] CenterRed Cell Distribution Cmxkz0206-58-91 06:57:00* Test Item Value Reference Range Interpretation Comments Red Cell Distribution Width (test code = 28215-5) 12.6 11.7 -14.4 [facility] CenterPlatelet Znbym6890-89-53 06:57:00* Test Item Value Reference Range Interpretation Comments Platelet Count (test code = 777-3) 251 140-360 [facility] CenterNeutrophils (%) (Auto)2018-01-09 06:57:00 * Test Item Value Reference Range Interpretation Comments Neutrophils (%) (Auto) (test code = 05353-9) 55.8 38.7-80.0 [facility] CenterLymphocytes (%) (Auto)2018-01-09 06:57:00 * Test Item Value Reference Range Interpretation Comments Lymphocytes (%) (Auto) (test code = 736-9) 31.4 18.0-39.1 [facility] CenterMonocytes (%) (Auto)2018-01-09 06:57:00* Test Item Value Reference Range Interpretation Comments Monocytes (%) (Auto) (test code = 5905-5) 10.5 4.4-11.3 [facility] CenterEosinophils (%) (Auto)2018-01-09 06:57:00 * Test Item Value Reference Range Interpretation Comments Eosinophils (%) (Auto) (test code = 713-8) 1.6 0.0-6.0 [facility] CenterBasophils (%) (Auto)2018-01-09 06:57:00* Test Item Value Reference Range Interpretation Comments Basophils (%) (Auto) (test code = 706-2) 0.4 0.0-1.0 [facility] CenterIM GRANULOCYTES %2018-01-09 06:57:00* Test Item Value Reference Range Interpretation Comments IM GRANULOCYTES % (test code = IM GRANULOCYTES %) 0.3 0.0- 1.0 [facility] CenterNeutrophils # (Auto)2018-01-09 06:57:00* Test Item Value Reference Range Interpretation Comments Neutrophils # (Auto) (test code = 751-8) 4.1 2.1-6.9 [facility] CenterLymphocytes # (Auto)2018-01-09 06:57:00* Test Item Value Reference Range Interpretation Comments Lymphocytes # (Auto) (test code = 01268-1) 2.3 1.0-3.2 [facility] CenterMonocytes # (Auto)2018-01-09 06:57:00* Test Item Value Reference Range Interpretation Comments Monocytes # (Auto) (test code = 742-7) 0.8 0.2-0.8 [facility] CenterEosinophils # (Auto)2018-01-09 06:57:00* Test Item Value Reference Range Interpretation Comments Eosinophils # (Auto) (test code = 711-2) 0.1 0.0-0.4 [facility] CenterBasophils # (Auto)2018-01-09 06:57:00* Test Item Value Reference Range Interpretation Comments Basophils # (Auto) (test code = 704-7) 0.0 0.0-0.1 [facility] CenterAbsolute Immature Granulocyte (auto 2018-01-09 06:57:00* Test Item Value Reference Range Interpretation Comments Absolute Immature Granulocyte (auto (aury t code = Absolute Immature Granulocyte (auto) 0.02 0-0.1 [facility] CenterCT BRAIN WS3575-53-18 18:09:00 [facility] [address] [place] [address] Patient Name: LADONNA DAN MR #: [id number] : 1945 Age/Sex: 72/F Req #: [id number] Adm Physician: Ordered by: FAUSTO REILLY RESOLUTION EXPERT Report #: [id number] Location: [facility]/Bed: Procedure: [id number] CT/CT BRAIN WO Exam Date : 01/08/18 [...] FAUSTO REILLY NP CHEST SINGLE (PORTABLE)2018-01-08 17:33:00 [place] [address] Patient Name: LADONNA DAN MR #: [id number] : 1945 Age/Sex: 72/F Req #: [id number] Adm Physician: Ordered by: FAUSTO REILLY RESOLUTION EXPERT Report #: [id number] Location: ER Room/Bed: Procedure: [id number] DX/CHEST SINGLE (PORTABLE ) Exam Date: 01/08/18 [...] at 17:33 Dictated By: ANTON CHAMBERS MD 173 Transcribed By: ELLEN on 01/08/18 173 COPY TO: FAUSTO REILLY RESOLUTION EXPERT Prothrombin Dbut4115-34-28 17:29:00* Test Item Value Reference Range Interpretation Comments Prothrombin Time (test code = 5902-2) 13.1 11.9-14.5 [facility] CenterProthromb Time International Ratio 2018-01-08 17:29:00* Test Item Value Reference Range Interpretation Comments Prothromb Time International Ratio (test code = 6301-6) 1.07 Oral Anticoagulant Therapy INR Values:1. Low Intensity Therapy 1.5 - 2.02 . Moderate Intensity Therapy 2.0 - 3.03. High Intensity Therapy(1) 2.5 - 3. 54. High Intensity Therapy(2) 3.0 - 4.05. Panic Value INR > 5.0 [facility] CenterActivated Partial Thromboplast Time 2018-01-08 17:29:00* Test Item Value Reference Range Interpretation Comments Activated Partial Thromboplast Time (test code = 77049-8) 25.2 23.8-35.5 [facility] CenterClostridium Difficile Toxin A & B 2017-07-29 14:22:00* Test Item Value Reference Range Interpretation Comments Clostridium Difficile Toxin A & B (test code = 030769414) POSI TIVE NEGATIVE H Results PRINTED TO ER/ PATIENT DISCHARGED at 1421 on 07/29/17 by DONA ENCISO.Results PRINTED TO infection control at 1421 on 07/29/17 by DONA PEÑA.Testing on stool aspirate specimens is outside 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 since spe cimen type not validated on this assay.[facility] Clostridium Difficile Toxin A & W0122-08-40 14:22:00* Test Item Value Reference Range Interpretation Comments Clostridium Difficile Toxin A & B (test code = 532594931) POSI TIVE NEGATIVE H Results PRINTED TO ER/ PATIENT DISCHARGED at 1421 on 07/29/17 by DONA CORTES [place].Results PRINTED TO infection control at 1421 on 07/29/17 by DONA PEÑA.Testing on stool aspirate specimens is outside 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 since spe cimen type not validated on this assay.[facility] Triglycerides Ebxgs7065-74-82 07:01:00* Test Item Value Reference Range Interpretation Comments Triglycerides Level (test code = 2571-8) 186 0-149 H [facility] CenterCholesterol Btdxg8970-29-98 07:01:00* Test Item Value Reference Range Interpretation Comments Cholesterol Level (test code = 2093-3) 229 0-199 H Less than 200 mg/dL Low Nbqo177 - 239 mg/dL Borderline Wyud775 m g/dl and greater High Risk [facility] CenterLDL Fykrnirzihw4018-86-77 07:01:00* Test Item Value Reference Range Interpretation Comments LDL Cholesterol (test code = 2089-1) 126 60-130 [facility] CenterHDL Gqubxpiiluf4741-72-37 07:01:00* Test Item Value Reference Range Interpretation Comments HDL Cholesterol (test code = 2085-9) 66 40-60 H [facility] CenterCholesterol/HDL Xdehz1819-42-99 07:01:00 * Test Item Value Reference Range Interpretation Comments Cholesterol/HDL Ratio (test code = 9830-1) 3.5 3.0-3.6 [facility] CenterTriglycerides Etidk5547-96-55 07:01:00* Test Item Value Reference Range Interpretation Comments Triglycerides Level (test code = 2571-8) 186 0-149 H [facility] CenterCholesterol Mfsxt7842-33-91 07:01:00* Test Item Value Reference Range Interpretation Comments Cholesterol Level (test code = 2093-3) 229 0-199 H Less than 200 mg/dL Low Jmvj063 - 239 mg/dL Borderline Wzwc879 m g/dl and greater High Risk [facility] CenterLDL Hlosuagmxwk3542-59-90 07:01:00* Test Item Value Reference Range Interpretation Comments LDL Cholesterol (test code = 2089-1) 126 60-130 [facility] Gbnfpzvqrhc9276-42-43 07:01:00* Test Item Value Reference Range Interpretation Comments HDL Cholesterol (test code = 2085-9) 66 40-60 H [facility] CenterCholesterol/HDL Afmmc9177-17-44 07:01:00 * Test Item Value Reference Range Interpretation Comments Cholesterol/HDL Ratio (test code = 9830-1) 3.5 3.0-3.6 [facility] CenterUrine Opiates [id number] 19:08:00* Test Item Value Reference Range Interpretation Comments Urine Opiates Screen (test code = 16635-0) NEGATIVE NEGATIVE [facility] [id number] 19:08:00* Test Item Value Reference Range Interpretation Comments Urine Barbiturates Screen (test code = 542911844) NEGATIVE NEGA TIVE [facility] Phencyclidine [id number] 19:08:00* Test Item Value Reference Range Interpretation Comments Urine Phencyclidine Screen (test code = 29741-2) NEGATIVE NEGAT ERIC [facility] Amphetamines [id number] 19:08:00* Test Item Value Reference Range Interpretation Comments Urine Amphetamines Screen (test code = 31492-6) NEGATIVE NEGATI VE [facility] Benzodiazepines [id number] 19:08:00* Test Item Value Reference Range Interpretation Comments Urine Benzodiazepines Screen (test code = 92992-7) NEGATIVE NEG ATIVE [facility] Cocaine [id number] 19:08:00* Test Item Value Reference Range Interpretation Comments Urine Cocaine Screen (test code = Urine Cocaine Screen) NEGATIVE NEGATIVE [facility] Cannabinoids [id number] 19:08:00* Test Item Value Reference Range Interpretation Comments Urine Cannabinoids Screen (test code = 57532-7) NEGATIVE NEGATI VE THESE RESULTS ARE FOR MEDICAL TREATMENT ONLYTHIS REPORT CONTAINS UNCONFIR MED SCREENING RESULTS*POSITIVE RESULTS WILL BE CONFIRMED BY REFERENCE LAB UPON R EQUEST CUT-OFFDRUG CLASS CONCENTRATION ng/mLAmphetamines 1000Methamphetamines 1000Cocaine 300Opiate 300Phencyc lidine 25Cannabinoid 50Barbiturates 300Benzodiazepine 300Methadone 300[facility] [id number] 19:08:00* Test Item Value Reference Range Interpretation Comments Urine WBC (test code = 5821-4) 0-5 0-5 [facility] [id number] 19:08:00* Test Item Value Reference Range Interpretation Comments Urine RBC (test code = 50683-7) 0-5 0-5 [facility] Jiombois0953-22-33 19:08:00* Test Item Value Reference Range Interpretation Comments Urine Bacteria (test code = 66005-8) FEW NONE [facility] Epithelial [id number] 19:08:00 * Test Item Value Reference Range Interpretation Comments Urine Epithelial Cells (test code = 79533-3) FEW NONE [facility] O[facility]ates [id number] 19:08:00* Test Item Value Reference Range Interpretation Comments Urine Opiates Screen (test code = 17801-2) NEGATIVE NEGATIVE [facility] Barbiturates [id number] 19:08:00* Test Item Value Reference Range Interpretation Comments Urine Barbiturates Screen (test code = 357650099) NEGATIVE NEGA TIVE [facility] Phencyclidine [id number] 19:08:00* Test Item Value Reference Range Interpretation Comments Urine Phencyclidine Screen (test code = 28633-9) NEGATIVE NEGAT ERIC [facility] Amphetamines [id number] 19:08:00* Test Item Value Reference Range Interpretation Comments Urine Amphetamines Screen (test code = 42817-3) NEGATIVE NEGATI VE [facility] Benzodiazepines Qlxifl8199-07-30 19:08:00* Test Item Value Reference Range Interpretation Comments Urine Benzodiazepines Screen (test code = 80016-7) NEGATIVE NEG ATIVE [facility] Cocaine [id number] 19:08:00* Test Item Value Reference Range Interpretation Comments Urine Cocaine Screen (test code = Urine Cocaine Screen) NEGATIVE NEGATIVE [facility] Cannabinoids [id number] 19:08:00* Test Item Value Reference Range Interpretation Comments Urine Cannabinoids Screen (test code = 35308-0) NEGATIVE NEGATI VE THESE RESULTS ARE FOR MEDICAL TREATMENT ONLYTHIS REPORT CONTAINS UNCONFIR MED SCREENING RESULTS*POSITIVE RESULTS WILL BE CONFIRMED BY REFERENCE LAB UPON R EQUEST CUT-OFFDRUG CLASS CONCENTRATION ng/mLAmphetamines 1000Methamphetamines 1000Cocaine 300Opiate 300Phencyc lidine 25Cannabinoid 50Barbiturates 300Benzodiazepine 300Methadone 300[facility] Jeebn5068-73-89 18:55:00* Test Item Value Reference Range Interpretation Comments Urine Color (test code = 5778-6) YELLOW YELLOW [facility] Pzwsvhx2420-53-37 18:55:00* Test Item Value Reference Range Interpretation Comments Urine Clarity (test code = 49663-0) SL CLOUDY CLEAR [facility] Specific Kdzkmlf8570-92-54 18:55:00 * Test Item Value Reference Range Interpretation Comments Urine Specific [place] (test code = 5811-5) 1.020 1.010-1.02 5 [facility] [id number] 18:55:00* Test Item Value Reference Range Interpretation Comments Urine pH (test code = 60730-1) 5 5-7 [facility] Leukocyte Qbiqsmit4415-02-52 18:55:00* Test Item Value Reference Range Interpretation Comments Urine Leukocyte Esterase (test code = 5799-2) TRACE NEGATIVE H [facility] Rshqgex8384-16-45 18:55:00* Test Item Value Reference Range Interpretation Comments Urine Nitrite (test code = 15888-0) NEGATIVE NEGATIVE [facility] [id number] 18:55:00* Test Item Value Reference Range Interpretation Comments Urine Protein (test code = 5804-0) NEGATIVE NEGATIVE [facility] Glucose ([id number])2017-07-27 18:55:00* Test Item Value Reference Range Interpretation Comments Urine Glucose (UA) (test code = 2349-9) NEGATIVE NEGATIVE [facility] Romuerl1750-57-94 18:55:00* Test Item Value Reference Range Interpretation Comments Urine Ketones (test code = 39865-2) NEGATIVE NEGATIVE [facility] Nrxtqmlzemyw4995-45-21 18:55:00* Test Item Value Reference Range Interpretation Comments Urine Urobilinogen (test code = 81655-3) 0.2 0.2-1 [facility] Zikzfcslk2356-91-70 18:55:00* Test Item Value Reference Range Interpretation Comments Urine Bilirubin (test code = 1978-6) NEGATIVE NEGATIVE [facility] Urqhs5046-58-17 18:55:00* Test Item Value Reference Range Interpretation Comments Urine Blood (test code = 90174-7) TRACE NEGATIVE H [facility] CenterCT[facility] B[facility]IN [facility] [address] [place] [address] Patient Name: LADONNA DAN MR #: [id number] : 1945 Age/Sex: 71/F [facility] #: [id number] Req #: [id number] Adm Physician: WOODROW ENCINAS MD Ordered by: SHANNON KHAN M.D. Report #: [id number] Location: [facility] Room/Bed: [facility] Procedure: 0119- 0026 CT/CTA BRAIN Exam [...] COPY TO: SHANNON MARLOW M.D. CTA NECK [place] [address] Patient Name: LADONNA DAN MR #: [id number] : 1945 Age/Sex: 71/F Req #: [id number] Adm Physician: WOODROW ENCINAS MD Ordered by: SHANNON KHAN M.D. Report #: [id number] Location: MED/SURG2 Room/Bed: Procedure: 0119- 0027 CT/CTA NECK Exam Date: [...] TO: SHANNON ALBERTS M.D. MRI BRAIN WO [place] [address] Patient Name: LADONNA DAN MR #: [id number] : 1945 Age/Sex: 71/F Req #: [id number] Adm Physician: WOODROW ENCINAS MD Ordered by: SHANNON KHAN M.D. Report #: [id number] Location: [facility] Room/Bed: Procedure: 0119- 0005 MRI/MRI BRAIN WO [...] TO: SHANNON KHAN M.D. CHEST 2 VIEWS [place] [address] Patient Name: LADONNA DAN MR #: [id number] : 1945 Age/Sex: 71/F Req #: [id number] Adm Physician: Ordered by: GISELLE STEPHENSON MD Report #: [id number] Location: ER Room/Bed: Procedure: [id number] DX/CHEST 2 VIEWS Exam Date : Exam [...] TO: GISELLE STEPHENSON MD CT BRAIN WO [place] [address] Patient Name: LADONNA DAN MR #: [id number] : 1945 Age/Sex: 71/F Req #: [id number] Adm Physician: Ordered by: GISELLE STEPHENSON MD Report #: [id number] Location: ER Room/Bed: Procedure: [id number] CT/CT BRAIN WO Exam Date: Exam Time: [...]
[2020-03-14 14:35] LABS: BASOPHILS % 0.4 % (0.0-1.0); EOSINOPHILS % 0.2 % (0.0-6.0); HEMATOCRIT 36.5 % (34.2-44.1); HEMOGLOBIN 12.1 g/dL (12.0-16.0); LYMPHOCYTES # (AUTO) 1.3 (1.0-3.2); LYMPHOCYTES % 12.6 % (18.0-39.1); MEAN CORPUSCULAR HEMOGLOBIN 31.1 pg (28-32); MEAN CORPUSCULAR HGB CONC 33.2 g/dL (31-35); MEAN CORPUSCULAR VOLUME 93.8 fL (81-99); MONOCYTES # (AUTO) 0.9 (0.2-0.8); MONOCYTES % 8.8 % (4.4-11.3); NEUTROPHILS # (AUTO) 8.1 (2.1-6.9); NEUTROPHILS % 77.5 % (38.7-80.0); PLATELET COUNT 358 x10e3/uL (140-360); RED BLOOD COUNT 3.89 x10e6/uL (3.6-5.1)
[2020-03-14 14:47] LABS: INR 0.94; PROTHROMBIN TIME 13.1 seconds (11.9-14.5)
--- NOTE | 2020-03-14 14:52 | Diagnostic Imaging Report ---
EXAMINATION: CHEST SINGLE (PORTABLE) INDICATION: SYNCOPE COMPARISON: Chest x-ray dated 01/15/2020. FINDINGS: AP view TUBES and LINES: None. . LUNGS/PLEURA: Lungs are well inflated. There is no evidence of pneumonia or pulmonary edema.. There is obscuration of the bilateral costophrenic angles which could be due to effusion and or atelectasis. HEART AND MEDIASTINUM: The cardiomediastinal silhouette is unremarkable. BONES AND SOFT TISSUES: No acute osseous lesion. Soft tissues are unremarkable. UPPER ABDOMEN: No free air under the diaphragm. IMPRESSION: No acute thoracic abnormality. Signed by: Lee Bass MD on 03/14/2020 2:49 PM
[2020-03-14 14:57] LABS: ALANINE AMINOTRANSFERASE 18 IU/L (0-55); ALBUMIN 4.4 g/dL (3.5-5.0); ALBUMIN/GLOBULIN RATIO 1.5 (0.8-2.0); ALKALINE PHOSPHATASE 56 IU/L (40-150); BLOOD UREA NITROGEN 8 mg/dL (7-26); BUN/CREATININE RATIO 10 (6-25); CALCIUM 9.4 mg/dL (8.4-10.2); CARBON DIOXIDE 22 mmol/L (22-29); CHLORIDE 96 mmol/L (98-107); CREATINE KINASE 55 IU/L (29-168); CREATININE, SERUM 0.83 mg/dL (0.57-1.11); EST GLOMERULAR FILTRATION RATE > 60 ML/MIN (60-); GLUCOSE 128 mg/dL (74-118); MAGNESIUM 1.6 MG/DL (1.3-2.1); PARTIAL THROMBOPLASTIN TIME 26.1 seconds (23.8-35.5); SODIUM 130 mmol/L (136-145)
[2020-03-14] MEDS ORDERED: ONDANSETRON HCL INJ 2MG/ML 2ML 2 MG/ML VIAL IV NR (15:00)
--- NOTE | 2020-03-14 15:16 | Diagnostic Imaging Report ---
Examination: CT head without contrast Clinical Indication: ^N ^SYNCOPE ^[id number] ^1420. Technique: Transaxial noncontrast images from the skull base through the vertex were obtained. Sagittal and coronal reformatted images were done. Dose modulation, iterative reconstruction, and/or weight based adjustment of the mA/kV was utilized to reduce the radiation dose to as low as reasonably achievable. Comparison: multiple CT with the most recent performed March 03, 2020. Findings: Scalp: No abnormalities. Bones: Intact. No fractures. No blastic or lytic lesions. Brain sulci: Generalized volume loss for patient's age. Ventricles: No hydrocephalus. . Extra-axial space: No abnormalities. Parenchyma: Again seen are patchy areas of low-attenuation within subcortical and periventricular white matter, nonspecific, but could represent microvascular ischemic disease. No masses, hemorrhage, or acute or chronic cortical based vascular insults. Suprasellar region: No abnormalities. Craniocervical junction: The foramen magnum is patent. No Chiari one malformation. Incidental findings: Atherosclerotic calcification of the cavernous and supraclinoid internal carotid arteries. Impression: 1. No new or acute intracranial finding when compared to prior head CT performed March 03, 2020. 2. Unchanged chronic microvascular ischemic change and generalized loss. Signed by: Dr. Dori Man M.D. on 03/14/2020 3:13 PM
[2020-03-14 15:17] LABS: THYROID STIMULATING HORMONE 0.635 uIU/mL (0.350-4.940)
[2020-03-14 15:30] LABS: BILIRUBIN,URINE NEGATIVE (NEGATIVE); CLARITY,URINE CLEAR (CLEAR); COLOR,URINE YELLOW (YELLOW); KETONES,URINE NEGATIVE (NEGATIVE); LEUKOCYTE ESTERASE ,URINE NEGATIVE (NEGATIVE); NITRITE,URINE NEGATIVE (NEGATIVE); PROTEIN,URINE DIPSTICK NEGATIVE (NEGATIVE); URINE UROBILINOGEN 0.2 mg/dL (0.2 - 1); WBC,URINE (MAN) 0-5 /HPF (0-5)
[2020-03-14 15:31] LABS: BACTERIA,URINE FEW /HPF; EPITHELIAL CELLS,URINE RARE /LPF
[2020-03-14] MEDS ORDERED: ACETAMINOPHEN 325 MG TAB PO NR (15:45)
--- NOTE | 2020-03-14 16:45 | Emergency Department Note ---
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 pt states she has been having these "episodes" for years and see's dr portillo. pt in no noted distress at time of triage. pt states she has been worked up multiple times and "nothing found.". 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 Any updates have been documented here. Past Medical History Recent Fever: No Clinical Suspicion of Infectio: No New/Unexplained Change in Ment: No Past Medical History: Hypertension, TIA, Seizure Disorder, Migraines, Anxiety Other Medical History: HEPATITIS C HEMOCHROMATOSIS CHRONIC APPENDICITIS Past Surgical History: None Other Surgery: BLADDER SUSPENSION EXPLORATORY SURGERY Social History Smoking Cessation: Former smoker Counseling Performed: No Alcohol Use: None Any Illegal Drug Use: No TB Exposure/Symptoms: No Physically hurt or threatened: No Family History Family history of heart diseas: No Other Last Tetanus: UTD Any Pre-Existing Lines (PICC,: No Review of Systems Review of Systems Constitutional: Reports no symptoms EENTM: Reports no symptoms Cardiovascular: Reports syncope Respiratory: Reports no symptoms Gastrointestinal: Reports no symptoms Genitourinary: Reports no symptoms Musculoskeletal: Reports no symptoms Integumentary: Reports no symptoms Neurological: Reports no symptoms Psychological: Reports no symptoms Endocrine: Reports no symptoms Hematological/Lymphatic: Reports no symptoms Physical Exam Related Data Allergies: Coded Allergies: Penicillins (Verified Allergy, Mild, VOMITING, DIZZY, RASH, TROUBLE BREATHING, 01/12/18) ciprofloxacin (Verified Allergy, Mild, STABBING PAIN IN CHEST AND SOB, 01/12/18) codeine (Verified Allergy, Mild, DIZZY, VOMITING, 01/12/18) Macrolide Antibiotics (Verified Allergy, Unknown, 02/26/20) Sulfa (Sulfonamide Antibiotics) (Verified Allergy, Unknown, 02/26/20) azithromycin (Verified Allergy, Unknown, 11/28/19) latex (Verified Allergy, Unknown, UNKNOWN, 01/12/18) levofloxacin (Verified Allergy, Unknown, UNKNOWN, 01/12/18) nitrofurantoin (Verified Allergy, Unknown, UNKNOWN, 01/12/18) sulfamethoxazole (Verified Adverse Reaction, Severe, NAUSEA AND DIZZINESS, 01/12/18) trimethoprim (Verified Adverse Reaction, Severe, NAUSEA AND DIZZINESS, 01/12/18) Uncoded Allergies: BETA BLOCKERS (Allergy, Unknown, 03/03/20) Triage Vital Signs Vital Signs Date Time Temp Pulse Resp B/P (MAP) Pulse Ox O2 Delivery O2 Flow Rate FiO2 03/14/20 13:35 97.3 101 18 179/79 96 Nasal Cannula 2.0 Vital signs reviewed: Yes Physical Exam CONSTITUTIONAL Constitutional: Present well-developed, Present well-nourished HENT HENT: Present normocephalic, Present atraumatic, Present oropharynx clear/moist, Present nose normal HENT L/R: Present left ext ear normal, Present right ext ear normal EYES Eyes: Reports PERRL, Reports conjunctivae normal NECK Neck: Present ROM normal PULMONARY Pulmonary: Present effort normal, Present breath sounds normal CARDIOVASCULAR Cardiovascular: Present regular rhythm, Present heart sounds normal, Present capillary refill normal, Present normal rate GASTROINTESTINAL Abdominal: Present soft, Present nontender, Present bowel sounds normal GENITOURINARY Genitourinary: Present exam deferred SKIN Skin: Present warm, Present dry MUSCULOSKELETAL Musculoskeletal: Present ROM normal NEUROLOGICAL Neurological: Present alert, Present oriented x 3, Present no gross motor or sensory deficits PSYCHOLOGICAL Psychological: Present mood/affect normal, Present judgement normal Results Laboratory Result Diagram: 03/14/20 1410 03/14/20 1410 Laboratory Laboratory Tests Test 03/14/20 15:05 03/14/20 14:10 Urine Color Yellow (YELLOW) Urine Clarity Clear (CLEAR) Urine pH 7 (5 - 7) Urine Specific [place] 1.025 (1.010-1.025) Urine Protein Negative (NEGATIVE) Urine Glucose (UA) Negative (NEGATIVE) Urine Ketones Negative (NEGATIVE) Urine Blood Negative (NEGATIVE) Urine Nitrite Negative (NEGATIVE) Urine Bilirubin Negative (NEGATIVE) Urine Urobilinogen 0.2 mg/dL (0.2 - 1) Urine Leukocyte Esterase Negative (NEGATIVE) Urine RBC None /HPF (0-5) Urine WBC 0-5 /HPF (0-5) Urine Epithelial Cells Rare /LPF (NONE) Urine Bacteria Few /HPF (NONE) White Blood Count 10.42 x10e3/uL (4.8-10.8) Red Blood Count 3.89 x10e6/uL (3.6-5.1) Hemoglobin 12.1 g/dL (12.0-16.0) Hematocrit 36.5 % (34.2-44.1) Mean Corpuscular Volume 93.8 fL (81-99) Mean Corpuscular Hemoglobin 31.1 pg (28-32) Mean Corpuscular Hemoglobin Concent 33.2 g/dL (31-35) Red Cell Distribution Width 12.0 % (11.7-14.4) Platelet Count 358 x10e3/uL (140-360) Neutrophils (%) (Auto) 77.5 % (38.7-80.0) Lymphocytes (%) (Auto) 12.6 % (18.0-39.1) Monocytes (%) (Auto) 8.8 % (4.4-11.3) Eosinophils (%) (Auto) 0.2 % (0.0-6.0) Basophils (%) (Auto) 0.4 % (0.0-1.0) Neutrophils # (Auto) 8.1 (2.1-6.9) Lymphocytes # (Auto) 1.3 (1.0-3.2) Monocytes # (Auto) 0.9 (0.2-0.8) Eosinophils # (Auto) 0.0 (0.0-0.4) Basophils # (Auto) 0.0 (0.0-0.1) Absolute Immature Granulocyte (auto 0.05 x10e3/uL (0-0.1) Prothrombin Time 13.1 seconds (11.9-14.5) Prothromb Time International Ratio 0.94 Activated Partial Thromboplast Time 26.1 seconds (23.8-35.5) Sodium Level 130 mmol/L (136-145) Potassium Level 4.0 mmol/L (3.5-5.1) Chloride Level 96 mmol/L (98-107) Carbon Dioxide Level 22 mmol/L (22-29) Anion Gap 16.0 mmol/L (8-16) Blood Urea Nitrogen 8 mg/dL (7-26) Creatinine 0.83 mg/dL (0.57-1.11) Estimat Glomerular Filtration Rate > 60 ML/MIN (60-) BUN/Creatinine Ratio 10 (6-25) Glucose Level 128 mg/dL (74-118) Calcium Level 9.4 mg/dL (8.4-10.2) Magnesium Level 1.6 MG/DL (1.3-2.1) Total Bilirubin 0.4 mg/dL (0.2-1.2) Aspartate Amino Transf (AST/SGOT) 23 IU/L (5-34) Alanine Aminotransferase (ALT/SGPT) 18 IU/L (0-55) Alkaline Phosphatase 56 IU/L (40-150) Creatine Kinase 55 IU/L (29-168) Creatine Kinase MB 2.10 ng/mL (0-5.0) Troponin I 0.006 ng/mL (0-0.300) B-Type Natriuretic Peptide 41.8 pg/mL (0-100) Total Protein 7.4 g/dL (6.5-8.1) Albumin 4.4 g/dL (3.5-5.0) Globulin 3.0 g/dL (2.3-3.5) Albumin/Globulin Ratio 1.5 (0.8-2.0) Thyroid Stimulating Hormone (TSH) 0.635 uIU/mL (0.350-4.940) Lab results reviewed: Yes Imaging Imaging results reviewed: Yes Procedures 12 Lead ECG Interpretation ECG Interpretation : ECG: ECG 1 Shirrer: Interpreted by ED physician Date: Mar 14, 2020 Time: 13:51 Rhythm: sinus rhythm Rate: normal BPM: 79 QRS axis: normal ST segments normal: Yes T waves flattening: aVL, V5, V6 Clinical Impression: normal ECG Assessment & Plan Medical Decision Making MDM ? syncope - check ecg, cbc, chem, cardiacs, ct brain - r/o dysrhythmia, stemi/nstemi, electrolyte abnl, cerebral bleed I spoke with Dr Portillo - pt has had many episodes of this and has had multiple w/u's to r/o cardiac causes, also had w/o by Dr Jett Jeffries to r/o seizures. Dr Portillo feels it is stress-related. I offered pt admission but she wants to go home, will F/U with PCP Silver Reassessment Reassessment dc home, F/U Dr Portillo Assessment & Plan Final Impression: (1) Syncope Depart Disposition: HOME, SELF-CARE Last Vital Signs Date Time Temp Pulse Resp B/P (MAP) Pulse Ox O2 Delivery O2 Flow Rate FiO2 03/14/20 15:35 71 16 138/70 95 Room Air 03/14/20 14:16 98.1 03/14/20 13:35 2.0 Home Meds Reported Medications Clonidine Hcl (CLONIDINE HCL) 0.1 Mg Tablet, 1 TAB PO PRN, #60 TAB 02/26/20 Citalopram Hydrobromide (CITALOPRAM HBR) 20 Mg Tablet, 20 MG PO DAILY, TAB 02/26/20 Acetaminophen (ACETAMINOPHEN) 500 Mg Tablet, 500 MG PO Q6H PRN for PAIN 01/16/20 Losartan Potassium (LOSARTAN POTASSIUM) 100 Mg Tablet, 100 MG PO DAILY, TAB 01/16/20 Cholecalciferol (Vitamin D3) (Vitamin D3) 250 Mcg Tablet, 250 MCG PO DAILY 11/28/19 Fish Oil/Dha/Epa (FISH OIL 1,200 MG FISH OIL) 1 Each Capsule, 1200 MG PO DAILY 11/28/19 Pantoprazole Sodium* (PROTONIX) 40 Mg Tablet., 40 MG PO DAILY, TAB 01/12/18 Clopidogrel Bisulfate* (PLAVIX) 75 Mg Tablet, 75 MG PO DAILY, #30 TAB 01/21/16 Medications in the ED Ondansetron HCl 4 mg NOW IV Last administered on 03/14/20at 15:25; Admin Dose 4 MG; Start 03/14/20 at 15:00; Stop 03/14/20 at 16:59 Acetaminophen 650 mg ONCE PO Last administered on 03/14/20at 16:07; Admin Dose 650 MG; Start 03/14/20 at 15:45; Stop 04/13/20 at 16:59 VICTORINA LUNA MD Mar 14, 2020 16:45
== END 2020-03-14 17:34 | disposition home or self-care (01) ==
LOC: ER 13:59
DX: R55 Syncope and collapse (principal); I10 Essential (primary) hypertension; E83.119 Hemochromatosis, unspecified; G40.909 Epilepsy, unspecified, not intractable, without status epilepticus; F41.9 Anxiety disorder, unspecified; B19.20 Unspecified viral hepatitis C without hepatic coma
CPT/HCPCS: 36415; 70450; 71045; 80053; 81001; 82550; 82553; 83735; 83880; 84443; 84484; 85025; 85610; 85730; 87086; 93005; 99284; J2405

== ENCOUNTER → 2020-04-03 | Day surgery (SDC) | payer MEDICARE, OTHER ==
[2020-02-28 10:23] LABS: BASOPHILS % 0.4 % (0.0-1.0); EOSINOPHILS # (AUTO) 0.1 (0.0-0.4); EOSINOPHILS % 1.1 % (0.0-6.0); HEMOGLOBIN 13.1 g/dL (12.0-16.0); LYMPHOCYTES # (AUTO) 2.3 (1.0-3.2); LYMPHOCYTES % 22.8 % (18.0-39.1); MEAN CORPUSCULAR HEMOGLOBIN 31.2 pg (28-32); MEAN CORPUSCULAR HGB CONC 32.8 g/dL (31-35); MEAN CORPUSCULAR VOLUME 95.2 fL (81-99); MONOCYTES # (AUTO) 1.1 (0.2-0.8); MONOCYTES % 11.4 % (4.4-11.3); NEUTROPHILS # (AUTO) 6.4 (2.1-6.9); NEUTROPHILS % 63.9 % (38.7-80.0); PLATELET COUNT 361 x10e3/uL (140-360)
[~2020-04-03] MED LIST changes: +CATAPRES-TTS 11 EACH TD; +FENTANYL CITRATE/PF 100MCG/2 ML INJ ONE; +LIDOCAINE HCL 2% LOCAL INJ 5 ML SDV VIAL INJ ONE; +MIDAZOLAM HCL 2 MG/2 ML VIAL ONE; +PROPOFOL IV EMULSION 10 MG/ML 20 ML VIAL ONE
[2020-04-03 07:45] VITALS: BP 107/67
== END | disposition home or self-care (01) ==
LOC: OR 05:12
PROVIDERS: ATTEND Internal Medicine Gastroenterology
DX: K29.50 Unspecified chronic gastritis without bleeding (principal); K62.1 Rectal polyp; K31.7 Polyp of stomach and duodenum; Z86.010 Personal history of colon polyps; K21.0 Gastro-esophageal reflux disease with esophagitis; K44.9 Diaphragmatic hernia without obstruction or gangrene; K64.8 Other hemorrhoids; I10 Essential (primary) hypertension; I25.10 Atherosclerotic heart disease of native coronary artery without angina pectoris; I25.2 Old myocardial infarction; F41.9 Anxiety disorder, unspecified; F32.9 Major depressive disorder, single episode, unspecified; Z91.048 Other nonmedicinal substance allergy status; Z88.6 Allergy status to analgesic agent; Z88.1 Allergy status to other antibiotic agents; Z88.0 Allergy status to penicillin; Z88.2 Allergy status to sulfonamides; Z01.812 Encounter for preprocedural laboratory examination; Z11.59 Encounter for screening for other viral diseases; Z79.02 Long term (current) use of antithrombotics/antiplatelets; Z86.73 Personal history of transient ischemic attack (TIA), and cerebral infarction without residual deficits; Z86.19 Personal history of other infectious and parasitic diseases; Z87.891 Personal history of nicotine dependence
CPT/HCPCS: 36415; 43239; 43251; 45380; 45385; 85025; J2001; J2250; J2704; J3010; U0002 ×2; 45378

== ENCOUNTER → 2020-10-20 | Outpatient (CLI) | payer MEDICARE ==
[~2020-10-20] MED LIST changes: -FENTANYL CITRATE/PF 100MCG/2 ML INJ ONE; -LIDOCAINE HCL 2% LOCAL INJ 5 ML SDV VIAL INJ ONE; -MIDAZOLAM HCL 2 MG/2 ML VIAL ONE; -PROPOFOL IV EMULSION 10 MG/ML 20 ML VIAL ONE
== END ==
LOC: DX 10:28
PROVIDERS: ATTEND Obstetrics & Gynecology
DX: M81.0 Age-related osteoporosis without current pathological fracture (principal)
CPT/HCPCS: 77080

== ENCOUNTER 2021-05-21 12:11 | Emergency (ER) | payer MEDICARE ==
[~2021-05-21] VITALS: Ht 152.4 cm; Wt 56.2 kg
[2021-05-21 12:58] LABS: BASOPHILS % 0.2 % (0.0-1.0); EOSINOPHILS % 0.4 % (0.0-6.0); HEMATOCRIT 39.8 % (34.2-44.1); LYMPHOCYTES # (AUTO) 1.7 (1.0-3.2); LYMPHOCYTES % 19.7 % (18.0-39.1); MEAN CORPUSCULAR HEMOGLOBIN 31.1 pg (28-32); MEAN CORPUSCULAR HGB CONC 32.7 g/dL (31-35); MEAN CORPUSCULAR VOLUME 95.2 fL (81-99); NEUTROPHILS # (AUTO) 5.7 (2.1-6.9); NEUTROPHILS % 67.1 % (38.7-80.0); PLATELET COUNT 355 x10e3/uL (140-360); RED BLOOD COUNT 4.18 x10e6/uL (3.6-5.1); RED CELL DISTRIBUTION WIDTH 13.2 % (11.7-14.4)
[2021-05-21 13:14] LABS: ALBUMIN 4.3 g/dL (3.5-5.0); ALBUMIN/GLOBULIN RATIO 1.2 (0.8-2.0); ANION GAP 15.9 mmol/L (8-16); CREATININE, SERUM 0.98 mg/dL (0.57-1.11); POTASSIUM 3.9 mmol/L (3.5-5.1)
[2021-05-21 13:46] LABS: CLARITY,URINE CLEAR (CLEAR); COLOR,URINE YELLOW (YELLOW); KETONES,URINE NEGATIVE (NEGATIVE); LEUKOCYTE ESTERASE ,URINE NEGATIVE (NEGATIVE); NITRITE,URINE NEGATIVE (NEGATIVE); PROTEIN,URINE DIPSTICK NEGATIVE (NEGATIVE); URINE UROBILINOGEN 0.2 mg/dL (0.2 - 1)
[2021-05-21 14:30] LABS: RBC,URINE 0-5 /HPF (0-5); WBC,URINE (MAN) 0-5 /HPF (0-5)
[2021-05-21 14:31] LABS: BACTERIA,URINE FEW /HPF; EPITHELIAL CELLS,URINE FEW /LPF
[2021-05-21] MEDS ORDERED: ONDANSETRON ODT4 MG PO (14:51)
[2021-05-21 15:34] VITALS: BP 134/70
== END 2021-05-21 15:45 | disposition home or self-care (01) ==
LOC: ER 12:27
DX: R19.7 Diarrhea, unspecified (principal); R42 Dizziness and giddiness; R53.1 Weakness; R11.0 Nausea; I10 Essential (primary) hypertension; G40.909 Epilepsy, unspecified, not intractable, without status epilepticus; Z20.822 Contact with and (suspected) exposure to COVID-19; Z88.0 Allergy status to penicillin; Z88.2 Allergy status to sulfonamides; Z88.6 Allergy status to analgesic agent; Z88.1 Allergy status to other antibiotic agents; Z91.040 Latex allergy status; Z79.02 Long term (current) use of antithrombotics/antiplatelets; Z86.73 Personal history of transient ischemic attack (TIA), and cerebral infarction without residual deficits; Z86.19 Personal history of other infectious and parasitic diseases
CPT/HCPCS: 36415; 70450; 71045; 80053; 81001; 84484; 85025; 93005; 99284; U0002

== ENCOUNTER 2021-08-15 10:14 | Inpatient (IN) | payer MEDICARE ==
[~2021-08-15] VITALS: Ht 153.7 cm; Wt 58.1 kg
[~2021-08-15 10:14] MED LIST changes: +ONDANSETRON ODT4 MG PO
[2021-08-15] MEDS ORDERED: KETOROLAC TROMETHAMINE 30 MG/ML VIAL IV NR (10:40)
[2021-08-15] MEDS ORDERED: LACTATED RINGER'S 1,000 ML INJ ONE (10:45)
[2021-08-15 10:57] LABS: BASOPHILS % 0.2 % (0.0-1.0); EOSINOPHILS % 0.3 % (0.0-6.0); HEMATOCRIT 34.3 % (34.2-44.1); HEMOGLOBIN 11.5 g/dL (12.0-16.0); LYMPHOCYTES # (AUTO) 1.3 (1.0-3.2); LYMPHOCYTES % 11.8 % (18.0-39.1); MEAN CORPUSCULAR HEMOGLOBIN 31.9 pg (28-32); MEAN CORPUSCULAR HGB CONC 33.5 g/dL (31-35); MEAN CORPUSCULAR VOLUME 95.3 fL (81-99); MONOCYTES % 9.7 % (4.4-11.3); NEUTROPHILS # (AUTO) 8.3 (2.1-6.9); NEUTROPHILS % 77.3 % (38.7-80.0); PLATELET COUNT 286 x10e3/uL (140-360); RED CELL DISTRIBUTION WIDTH 13.1 % (11.7-14.4)
[2021-08-15 11:03] LABS: CLARITY,URINE SL CLOUDY (CLEAR); COLOR,URINE STRAW (YELLOW); KETONES,URINE NEGATIVE (NEGATIVE); LEUKOCYTE ESTERASE ,URINE TRACE (NEGATIVE); NITRITE,URINE NEGATIVE (NEGATIVE); PROTEIN,URINE DIPSTICK 1+ (NEGATIVE); URINE UROBILINOGEN 0.2 mg/dL (0.2 - 1)
[2021-08-15 11:13] LABS: BACTERIA,URINE MODERATE /HPF; EPITHELIAL CELLS,URINE MANY /LPF; TRANSITIONAL EPI CELLS,URINE FEW
[2021-08-15 11:14] LABS: AMORPHOUS SEDIMENT,URINE MODERATE (FEW)
[2021-08-15 11:20] LABS: ALBUMIN 2.6 g/dL (3.5-5.0); ALBUMIN/GLOBULIN RATIO 0.6 (0.8-2.0); ANION GAP 15.1 mmol/L (8-16); CALCIUM 9.6 mg/dL (8.4-10.2); CREATININE, SERUM 0.81 mg/dL (0.57-1.11); POTASSIUM 4.1 mmol/L (3.5-5.1)
[2021-08-15] MEDS ORDERED: CEFTRIAXONE 1 GM VIAL IV ONE (12:00)
[2021-08-15] MEDS ORDERED: SODIUM CHLORIDE 0.9% 1000ML 1,000 ML IV SCH (12:00)
[2021-08-15] MEDS ORDERED: SODIUM CHLORIDE 0.9% 50ML 0 ML ONE (12:03)
[2021-08-15] MEDS ORDERED: IOPAMIDOL 370 MG/ML 200 ML INFUS..BTL INJ ONE (14:31)
[2021-08-15] MEDS ORDERED: SODIUM CHLORIDE 0.9% 50ML 50 ML ONE (14:31)
[2021-08-15] MEDS ORDERED: SODIUM CHLORIDE 0.9% 100 ML ONE (15:15)
[2021-08-15 20:07] VITALS: BP 149/76
[2021-08-15 20:44] VITALS: BP 149/76
[2021-08-15 21:10] VITALS: BP 149/76
[2021-08-15] MEDS ORDERED: ATIVAN0.5 MG PO (21:12)
[2021-08-15] MEDS ORDERED: BENICAR20 MG PO (21:12)
[2021-08-16] VITALS (9 sets, daily range): BP systolic 143–168; BP diastolic 72–93
[2021-08-16 05:27] LABS: BASOPHILS % 0.4 % (0.0-1.0); EOSINOPHILS # (AUTO) 0.1 (0.0-0.4); EOSINOPHILS % 0.7 % (0.0-6.0); HEMATOCRIT 28.5 % (34.2-44.1); HEMOGLOBIN 9.9 g/dL (12.0-16.0); LYMPHOCYTES # (AUTO) 0.8 (1.0-3.2); LYMPHOCYTES % 9.7 % (18.0-39.1); MEAN CORPUSCULAR HEMOGLOBIN 31.8 pg (28-32); MEAN CORPUSCULAR HGB CONC 34.7 g/dL (31-35); MEAN CORPUSCULAR VOLUME 91.6 fL (81-99); MONOCYTES # (AUTO) 0.8 (0.2-0.8); MONOCYTES % 9.1 % (4.4-11.3); NEUTROPHILS # (AUTO) 6.5 (2.1-6.9); NEUTROPHILS % 79.4 % (38.7-80.0); PLATELET COUNT 279 x10e3/uL (140-360); RED BLOOD COUNT 3.11 x10e6/uL (3.6-5.1); RED CELL DISTRIBUTION WIDTH 13.1 % (11.7-14.4)
[2021-08-16 06:44] LABS: ANION GAP 12.8 mmol/L (8-16); CALCIUM 9.1 mg/dL (8.4-10.2); CREATININE, SERUM 0.68 mg/dL (0.57-1.11); POTASSIUM 3.8 mmol/L (3.5-5.1)
[2021-08-16] MEDS: CEFTRIAXONE 1 GM in SODIUM CHLORIDE 0.9% 50ML 50 ML IV SCH (08:28)
[2021-08-16] MEDS: CLOPIDOGREL BISULFATE 75 MG TAB PO SCH (08:29)
[2021-08-16] MEDS: METHYLPREDNISOLONE SOD SUCC 40 MG/ML VIAL 1ML IV SCH ×2 (08:29→20:16)
[2021-08-16] MEDS: PANTOPRAZOLE SOD 40 MG TABEC PO SCH (08:29)
[2021-08-16] MEDS: OLMESARTAN 20 MG TAB PO SCH (08:29)
[2021-08-16] MEDS ORDERED: SODIUM CHLORIDE 0.9% 250ML 250 ML ONE (08:44)
[2021-08-16] MEDS ORDERED: CLONIDINE HCL 0.1 MG/24 HR 1 EA PATCH TD SCH (09:00)
[2021-08-16] MEDS: ACETAMINOPHEN 325 MG TAB PO PRN (17:07)
[2021-08-16] MEDS: LORAZEPAM 0.5 MG TAB PO PRN (20:16)
[2021-08-17 04:00] VITALS: BP 167/84
[2021-08-17] MEDS: LORAZEPAM 0.5 MG TAB PO PRN ×3 (04:37→20:48)
[2021-08-17 05:55] LABS: CHOL/HDL RATIO 4.2 (3.0-3.6)
[2021-08-17 08:00] VITALS: BP 143/87
[2021-08-17 08:28] VITALS: BP 143/87
[2021-08-17] MEDS ORDERED: DILTIAZEM HCL30 MG PO (08:59)
[2021-08-17] MEDS ORDERED: METOPROLOL SUCCINATE 25 MG TAB XL PO SCH (09:00)
[2021-08-17] MEDS: CEFTRIAXONE 1 GM in SODIUM CHLORIDE 0.9% 50ML 50 ML IV SCH (09:02)
[2021-08-17] MEDS: OLMESARTAN 20 MG TAB PO SCH (09:02)
[2021-08-17] MEDS: METHYLPREDNISOLONE SOD SUCC 40 MG/ML VIAL 1ML IV SCH ×2 (09:02→20:47)
[2021-08-17] MEDS: CLOPIDOGREL BISULFATE 75 MG TAB PO SCH (09:03)
[2021-08-17] MEDS: PANTOPRAZOLE SOD 40 MG TABEC PO SCH (09:03)
[2021-08-17] MEDS: ACETAMINOPHEN 325 MG TAB PO PRN ×2 (09:53→20:55)
[2021-08-17 11:51] VITALS: BP 168/85
[2021-08-17] MEDS ORDERED: IPRATROPIUM BROMIDE 0.02% 2.5 ML NEB NEB SCH (15:00)
[2021-08-17 16:00] VITALS: BP 170/99
[2021-08-17] MEDS: CLONIDINE HCL 0.1 MG TAB PO PRN (16:17)
[2021-08-17 20:00] VITALS: BP 145/85
[2021-08-17] MEDS ORDERED: ATORVASTATIN 20 MG TAB PO SCH (21:00)
[2021-08-18] VITALS (8 sets, daily range): BP systolic 124–170; BP diastolic 67–93
[2021-08-18] MEDS: OLMESARTAN 20 MG TAB PO SCH (08:44)
[2021-08-18] MEDS: CEFTRIAXONE 1 GM in SODIUM CHLORIDE 0.9% 50ML 50 ML IV SCH (08:44)
[2021-08-18] MEDS: PANTOPRAZOLE SOD 40 MG TABEC PO SCH (08:44)
[2021-08-18] MEDS: METHYLPREDNISOLONE SOD SUCC 40 MG/ML VIAL 1ML IV SCH ×2 (08:44→21:25)
[2021-08-18] MEDS: CLOPIDOGREL BISULFATE 75 MG TAB PO SCH (08:44)
[2021-08-18] MEDS ORDERED: METOPROLOL SUCCINATE 25 MG TAB XL PO SCH (09:00)
[2021-08-18] MEDS: IPRATROPIUM BROMIDE 0.02% 2.5 ML NEB NEB SCH ×3 (11:58→19:33)
[2021-08-18] MEDS: LORAZEPAM 0.5 MG TAB PO PRN (13:55)
[2021-08-18] MEDS: CLONIDINE HCL 0.1 MG TAB PO PRN (17:02)
[2021-08-18] MEDS: ACETAMINOPHEN 325 MG TAB PO PRN (17:02)
[2021-08-18] MEDS ORDERED: ATORVASTATIN 40 MG TAB PO SCH (21:00)
[2021-08-19] VITALS: BP 154/83
[2021-08-19] MEDS: IPRATROPIUM BROMIDE 0.02% 2.5 ML NEB NEB SCH ×2 (01:04→08:16)
[2021-08-19] MEDS: LORAZEPAM 0.5 MG TAB PO PRN ×2 (01:30→09:11)
[2021-08-19 04:00] VITALS: BP 131/60
[2021-08-19 08:07] VITALS: BP 167/93
[2021-08-19 08:57] VITALS: BP 167/93
[2021-08-19] MEDS: CLOPIDOGREL BISULFATE 75 MG TAB PO SCH (08:58)
[2021-08-19] MEDS: METHYLPREDNISOLONE SOD SUCC 40 MG/ML VIAL 1ML IV SCH (08:59)
[2021-08-19] MEDS: OLMESARTAN 20 MG TAB PO SCH (08:59)
[2021-08-19] MEDS: CEFTRIAXONE 1 GM in SODIUM CHLORIDE 0.9% 50ML 50 ML IV SCH (08:59)
[2021-08-19] MEDS: PANTOPRAZOLE SOD 40 MG TABEC PO SCH (08:59)
[2021-08-19] MEDS ORDERED: METOPROLOL SUCCINATE 50 MG TAB XL PO SCH (09:00)
[2021-08-19] MEDS: ACETAMINOPHEN 325 MG TAB PO PRN (09:11)
[2021-08-19] MEDS: CLONIDINE HCL 0.1 MG TAB PO PRN (09:11)
== END 2021-08-19 09:51 | disposition home or self-care (01) | DRG 191 ==
LOC: ER 10:20 → ERHOLD 16:26 → MED/SURG 20:07 → OBSVTOIN 08-17 08:54
PROVIDERS: ADMIT Internal Medicine; ATTEND Internal Medicine
DX: J44.1 Chronic obstructive pulmonary disease with (acute) exacerbation (principal); E87.1 Hypo-osmolality and hyponatremia; N39.0 Urinary tract infection, site not specified; R09.02 Hypoxemia; R07.9 Chest pain, unspecified; I10 Essential (primary) hypertension; E78.5 Hyperlipidemia, unspecified; K21.9 Gastro-esophageal reflux disease without esophagitis; F41.9 Anxiety disorder, unspecified; D64.9 Anemia, unspecified; Z88.0 Allergy status to penicillin; Z88.2 Allergy status to sulfonamides; Z88.5 Allergy status to narcotic agent; Z88.1 Allergy status to other antibiotic agents; Z88.8 Allergy status to other drugs, medicaments and biological substances; Z91.040 Latex allergy status; Z82.49 Family history of ischemic heart disease and other diseases of the circulatory system; Z86.73 Personal history of transient ischemic attack (TIA), and cerebral infarction without residual deficits; Z87.891 Personal history of nicotine dependence; Z20.822 Contact with and (suspected) exposure to COVID-19
CPT/HCPCS: 36415; 71045; 71260; 80048; 80053; 80061; 81001; 83880; 84439; 84443; 84484; 85025; 85379; 86141; 87070; 87205; 93005; 93306; 94799; 97139; 99284; G0378; J0696; J1885; J2920; J7030; J7050; J7121; Q9967; U0002

== ENCOUNTER 2021-08-20 09:55 | Emergency (ER) | payer MEDICARE ==
[~2021-08-20] VITALS: Ht 153.7 cm; Wt 58.1 kg
[~2021-08-20 09:55] MED LIST changes: +BENICAR20 MG PO; +DILTIAZEM HCL30 MG PO
[2021-08-20 10:25] LABS: BASOPHILS % 0.2 % (0.0-1.0); EOSINOPHILS % 0.2 % (0.0-6.0); HEMATOCRIT 34.7 % (34.2-44.1); HEMOGLOBIN 11.4 g/dL (12.0-16.0); LYMPHOCYTES % 15.8 % (18.0-39.1); MEAN CORPUSCULAR HEMOGLOBIN 31.1 pg (28-32); MEAN CORPUSCULAR HGB CONC 32.9 g/dL (31-35); MEAN CORPUSCULAR VOLUME 94.6 fL (81-99); MONOCYTES # (AUTO) 1.2 (0.2-0.8); MONOCYTES % 9.2 % (4.4-11.3); NEUTROPHILS % 71.8 % (38.7-80.0); PLATELET COUNT 609 x10e3/uL (140-360); RED BLOOD COUNT 3.67 x10e6/uL (3.6-5.1)
[2021-08-20 10:49] LABS: ALBUMIN 2.8 g/dL (3.5-5.0); ALBUMIN/GLOBULIN RATIO 0.7 (0.8-2.0); ANION GAP 14.5 mmol/L (8-16); CALCIUM 9.8 mg/dL (8.4-10.2); CREATININE, SERUM 0.77 mg/dL (0.57-1.11); MAGNESIUM 1.5 MG/DL (1.3-2.1); POTASSIUM 3.5 mmol/L (3.5-5.1)
[2021-08-20 10:59] LABS: CREATINE KINASE MB 1.8 ng/mL (0-5.0)
[2021-08-20] MEDS ORDERED: LIDOCAINE VISC 2% SOLN 15 ML UDC PO ONE (11:00)
[2021-08-20] MEDS ORDERED: BELLADONNA ALK/PHENOBARBITAL 5 ML UDC PO ONE (11:00)
[2021-08-20] MEDS ORDERED: MAGNESIUM/ALUMINUM/SIMETHICONE 30 ML UDC PO ONE (11:00)
[2021-08-20 12:18] VITALS: BP 132/76
== END 2021-08-20 12:32 | disposition home or self-care (01) ==
LOC: ER 10:02
DX: R07.89 Other chest pain (principal); J44.9 Chronic obstructive pulmonary disease, unspecified; K21.9 Gastro-esophageal reflux disease without esophagitis; I10 Essential (primary) hypertension; F41.9 Anxiety disorder, unspecified; G40.909 Epilepsy, unspecified, not intractable, without status epilepticus; B19.20 Unspecified viral hepatitis C without hepatic coma; Z20.822 Contact with and (suspected) exposure to COVID-19; Z86.73 Personal history of transient ischemic attack (TIA), and cerebral infarction without residual deficits; F17.210 Nicotine dependence, cigarettes, uncomplicated
CPT/HCPCS: 36415; 80053; 82550; 82553; 83735; 83880; 84484; 85025; 99284; U0002

== ENCOUNTER → 2021-11-19 | Outpatient (CLI) | payer MEDICARE | LOC: US 10:53 | PROVIDERS: ATTEND Internal Medicine Gastroenterology | DX: R10.13 Epigastric pain (principal); Z68.24 Body mass index [BMI] 24.0-24.9, adult; Z87.891 Personal history of nicotine dependence | CPT/HCPCS: 76700 ==

== ENCOUNTER → 2022-02-24 | Day surgery (SDC) | payer MEDICARE ==
[2022-01-17 09:51] LABS: BASOPHILS # (AUTO) 0.1 (0.0-0.1); BASOPHILS % 0.7 % (0.0-1.0); EOSINOPHILS # (AUTO) 0.1 (0.0-0.4); EOSINOPHILS % 0.9 % (0.0-6.0); HEMATOCRIT 34.5 % (34.2-44.1); HEMOGLOBIN 10.5 g/dL (12.0-16.0); LYMPHOCYTES # (AUTO) 2.5 (1.0-3.2); LYMPHOCYTES % 25.5 % (18.0-39.1); MEAN CORPUSCULAR HEMOGLOBIN 25.9 pg (28-32); MEAN CORPUSCULAR HGB CONC 30.4 g/dL (31-35); MEAN CORPUSCULAR VOLUME 85.2 fL (81-99); MONOCYTES # (AUTO) 1.2 (0.2-0.8); MONOCYTES % 12.5 % (4.4-11.3); NEUTROPHILS % 60.2 % (38.7-80.0); PLATELET COUNT 459 x10e3/uL (140-360); RED BLOOD COUNT 4.05 x10e6/uL (3.6-5.1); RED CELL DISTRIBUTION WIDTH 15.8 % (11.7-14.4)
[2022-02-22 10:39] LABS: BASOPHILS # (AUTO) 0.1 (0.0-0.1); BASOPHILS % 0.5 % (0.0-1.0); EOSINOPHILS # (AUTO) 0.1 (0.0-0.4); EOSINOPHILS % 0.9 % (0.0-6.0); HEMATOCRIT 33.5 % (34.2-44.1); HEMOGLOBIN 10.4 g/dL (12.0-16.0); LYMPHOCYTES % 31.2 % (18.0-39.1); MEAN CORPUSCULAR HEMOGLOBIN 25.7 pg (28-32); MEAN CORPUSCULAR VOLUME 82.7 fL (81-99); MONOCYTES # (AUTO) 1.3 (0.2-0.8); MONOCYTES % 13.2 % (4.4-11.3); NEUTROPHILS # (AUTO) 5.2 (2.1-6.9); NEUTROPHILS % 53.9 % (38.7-80.0); PLATELET COUNT 440 x10e3/uL (140-360); RED BLOOD COUNT 4.05 x10e6/uL (3.6-5.1); RED CELL DISTRIBUTION WIDTH 17.8 % (11.7-14.4)
[~2022-02-24] MED LIST changes: +CLONIDINE HCL0.3 MG PO; +PROPOFOL IV EMULSION 10 MG/ML 20 ML VIAL ONE
[2022-02-24 08:55] VITALS: BP 116/60
== END | disposition home or self-care (01) ==
LOC: OR 08:21
PROVIDERS: ATTEND Internal Medicine Gastroenterology
DX: K29.50 Unspecified chronic gastritis without bleeding (principal); K44.9 Diaphragmatic hernia without obstruction or gangrene; K21.9 Gastro-esophageal reflux disease without esophagitis; J44.9 Chronic obstructive pulmonary disease, unspecified; I10 Essential (primary) hypertension; I83.90 Asymptomatic varicose veins of unspecified lower extremity; F41.9 Anxiety disorder, unspecified; Z88.6 Allergy status to analgesic agent; Z88.1 Allergy status to other antibiotic agents; Z88.0 Allergy status to penicillin; Z88.2 Allergy status to sulfonamides; Z91.048 Other nonmedicinal substance allergy status; Z01.810 Encounter for preprocedural cardiovascular examination; Z01.812 Encounter for preprocedural laboratory examination; Z20.822 Contact with and (suspected) exposure to COVID-19; Z87.891 Personal history of nicotine dependence; Z79.02 Long term (current) use of antithrombotics/antiplatelets; Z79.899 Other long term (current) drug therapy; Z86.73 Personal history of transient ischemic attack (TIA), and cerebral infarction without residual deficits; Z86.19 Personal history of other infectious and parasitic diseases
CPT/HCPCS: 0223U ×2; 36415 ×2; 43239; 85025 ×2; 88305; 88342; 93005; J2704; 88312

== ENCOUNTER 2022-04-11 04:02 | Emergency (ER) | payer MEDICARE ==
[~2022-04-11] VITALS: Ht 153.7 cm; Wt 58.1 kg
[~2022-04-11 04:02] MED LIST changes: -PROPOFOL IV EMULSION 10 MG/ML 20 ML VIAL ONE
[2022-04-11] MEDS ORDERED: ONDANSETRON HCL INJ 2MG/ML 2ML 2 MG/ML VIAL ONE (04:23)
[2022-04-11 04:38] LABS: BASOPHILS # (AUTO) 0.1 (0.0-0.1); BASOPHILS % 0.5 % (0.0-1.0); EOSINOPHILS # (AUTO) 0.1 (0.0-0.4); EOSINOPHILS % 1.2 % (0.0-6.0); HEMATOCRIT 36.2 % (34.2-44.1); HEMOGLOBIN 10.9 g/dL (12.0-16.0); MEAN CORPUSCULAR HEMOGLOBIN 25.6 pg (28-32); MEAN CORPUSCULAR HGB CONC 30.1 g/dL (31-35); MONOCYTES # (AUTO) 1.3 (0.2-0.8); MONOCYTES % 12.9 % (4.4-11.3); NEUTROPHILS # (AUTO) 6.4 (2.1-6.9); PLATELET COUNT 491 x10e3/uL (140-360); RED BLOOD COUNT 4.26 x10e6/uL (3.6-5.1); RED CELL DISTRIBUTION WIDTH 17.3 % (11.7-14.4)
[2022-04-11 04:53] LABS: ALBUMIN 4.1 g/dL (3.5-5.0); ALBUMIN/GLOBULIN RATIO 1.1 (0.8-2.0); ANION GAP 16.9 mmol/L (8-16); CALCIUM 9.9 mg/dL (8.4-10.2); CREATININE, SERUM 0.9 mg/dL (0.57-1.11); POTASSIUM 3.9 mmol/L (3.5-5.1)
[2022-04-11 04:59] LABS: CREATINE KINASE MB 0.9 ng/mL (0-5.0)
[2022-04-11 06:27] LABS: CLARITY,URINE CLEAR (CLEAR); COLOR,URINE STRAW (YELLOW)
[2022-04-11 06:28] LABS: KETONES,URINE NEGATIVE (NEGATIVE); LEUKOCYTE ESTERASE ,URINE TRACE (NEGATIVE); NITRITE,URINE NEGATIVE (NEGATIVE); PROTEIN,URINE DIPSTICK NEGATIVE (NEGATIVE); URINE UROBILINOGEN 0.2 mg/dL (0.2 - 1)
[2022-04-11 06:42] LABS: BACTERIA,URINE FEW /HPF
[2022-04-11 06:46] LABS: EPITHELIAL CELLS,URINE MODERATE /LPF
[2022-04-11 07:24] VITALS: BP 138/82
== END 2022-04-11 07:27 | disposition home or self-care (01) ==
LOC: ER 04:18
DX: R42 Dizziness and giddiness (principal); R20.2 Paresthesia of skin; I10 Essential (primary) hypertension; G40.909 Epilepsy, unspecified, not intractable, without status epilepticus; F41.9 Anxiety disorder, unspecified; B19.20 Unspecified viral hepatitis C without hepatic coma; Z86.73 Personal history of transient ischemic attack (TIA), and cerebral infarction without residual deficits; R94.31 Abnormal electrocardiogram [ECG] [EKG]
CPT/HCPCS: 36415; 80053; 81001; 82550; 82553; 84484; 85025; 93005; 99284; J2405

== ENCOUNTER → 2022-04-14 | Outpatient (CLI) | payer MEDICARE | LOC: CARD 09:50 | PROVIDERS: ATTEND Internal Medicine | DX: I73.9 Peripheral vascular disease, unspecified (principal) | CPT/HCPCS: 93925 ==

== ENCOUNTER → 2022-05-05 | Day surgery (SDC) | payer MEDICARE ==
[2022-05-02 09:20] LABS: BASOPHILS % 0.7 % (0.0-1.0); EOSINOPHILS % 1.3 % (0.0-6.0); HEMATOCRIT 36.2 % (34.2-44.1); HEMOGLOBIN 10.9 g/dL (12.0-16.0); LYMPHOCYTES % 34.8 % (18.0-39.1); MEAN CORPUSCULAR HEMOGLOBIN 25.8 pg (28-32); MEAN CORPUSCULAR HGB CONC 30.1 g/dL (31-35); MEAN CORPUSCULAR VOLUME 85.6 fL (81-99); MONOCYTES % 13.9 % (4.4-11.3); PLATELET COUNT 442 x10e3/uL (140-360); RED BLOOD COUNT 4.23 x10e6/uL (3.6-5.1); RED CELL DISTRIBUTION WIDTH 15.9 % (11.7-14.4)
[2022-05-02 09:21] LABS: BASOPHILS # (AUTO) 0.1 (0.0-0.1); EOSINOPHILS # (AUTO) 0.1 (0.0-0.4); LYMPHOCYTES # (AUTO) 2.5 (1.0-3.2); NEUTROPHILS # (AUTO) 3.5 (2.1-6.9)
[2022-05-02 09:30] LABS: INR 0.92; PROTHROMBIN TIME 13.2 seconds (11.9-14.5)
[2022-05-02 09:38] LABS: ALANINE AMINOTRANSFERASE 15 IU/L (0-55); ALBUMIN 3.9 g/dL (3.5-5.0); ALBUMIN/GLOBULIN RATIO 1.1 (0.8-2.0); ALKALINE PHOSPHATASE 83 IU/L (40-150); ANION GAP 17.2 mmol/L (8-16); BLOOD UREA NITROGEN 7 mg/dL (7-26); BUN/CREATININE RATIO 7 (6-25); CALCIUM 9.7 mg/dL (8.4-10.2); CARBON DIOXIDE 25 mmol/L (22-29); CHLORIDE 101 mmol/L (98-107); CHOLESTEROL 212 MD/DL (0-199); CREATININE, SERUM 0.96 mg/dL (0.57-1.11); GLUCOSE 87 mg/dL (74-118); HDL CHOLESTEROL 53 MG/DL (40-60); LDL CHOLESTEROL 97 MG/DL (60-130); POTASSIUM 4.2 mmol/L (3.5-5.1); SODIUM 139 mmol/L (136-145); TRIGLYCERIDES 312 MG/DL (0-149)
[~2022-05-05] VITALS: Ht 152.4 cm; Wt 56.2 kg
[2022-05-05] VITALS (9 sets, daily range): BP systolic 112–147; BP diastolic 51–90
[~2022-05-05] MED LIST changes: +FENTANYL CITRATE/PF 100MCG/2 ML INJ ONE; +HEPARIN SOD/SOD CHLORIDE 2,000 ML ONE; +IOPAMIDOL 300MG/ML 100 ML INFUS..BTL IV ONE; +LIDOCAINE HCL 2% LOCAL INJ 5 ML SDV VIAL INJ ONE; +MIDAZOLAM HCL 2 MG/2 ML VIAL ONE; +SODIUM CHLORIDE 0.9% 1000ML 1,000 ML ONE; +VERAPAMIL HCL 2.5 MG/ML 2 ML VIAL ONE
== END | disposition home or self-care (01) ==
LOC: CATH LAB 07:17
PROVIDERS: ATTEND Internal Medicine Cardiovascular Disease
DX: I70.203 Unspecified atherosclerosis of native arteries of extremities, bilateral legs (principal); R07.89 Other chest pain; I10 Essential (primary) hypertension; E78.5 Hyperlipidemia, unspecified; Z88.6 Allergy status to analgesic agent; Z88.1 Allergy status to other antibiotic agents; Z88.0 Allergy status to penicillin; Z91.040 Latex allergy status; Z01.812 Encounter for preprocedural laboratory examination; Z20.822 Contact with and (suspected) exposure to COVID-19; Z79.02 Long term (current) use of antithrombotics/antiplatelets; Z79.899 Other long term (current) drug therapy; Z86.73 Personal history of transient ischemic attack (TIA), and cerebral infarction without residual deficits; Z82.49 Family history of ischemic heart disease and other diseases of the circulatory system
CPT/HCPCS: 0223U; 36415; 37225; 75625; 80053; 80061; 85025; 85610; C1724; C1769; C1887 ×2; C1894; C2623; J2001; J2250; J3010; J7030; Q9967; 36247; 75716; 99152; 99153

== ENCOUNTER 2022-10-29 12:11 | Emergency (ER) | payer MEDICARE ==
[~2022-10-29] VITALS: Ht 153.7 cm; Wt 56.2 kg
[~2022-10-29 12:11] MED LIST changes: -FENTANYL CITRATE/PF 100MCG/2 ML INJ ONE; -HEPARIN SOD/SOD CHLORIDE 2,000 ML ONE; -IOPAMIDOL 300MG/ML 100 ML INFUS..BTL IV ONE; -LIDOCAINE HCL 2% LOCAL INJ 5 ML SDV VIAL INJ ONE; -MIDAZOLAM HCL 2 MG/2 ML VIAL ONE; -SODIUM CHLORIDE 0.9% 1000ML 1,000 ML ONE; -VERAPAMIL HCL 2.5 MG/ML 2 ML VIAL ONE
[2022-10-29] MEDS ORDERED: ONDANSETRON HCL INJ 2MG/ML 2ML 2 MG/ML VIAL IV STA (12:22)
[2022-10-29] MEDS ORDERED: SODIUM CHLORIDE 0.9% 1000ML 1,000 ML IV STA (12:22)
[2022-10-29 12:39] LABS: BASOPHILS % 0.5 % (0.0-1.0); EOSINOPHILS # (AUTO) 0.1 (0.0-0.4); EOSINOPHILS % 1.4 % (0.0-6.0); HEMATOCRIT 36.2 % (34.2-44.1); HEMOGLOBIN 11.7 g/dL (12.0-16.0); LYMPHOCYTES # (AUTO) 2.6 (1.0-3.2); LYMPHOCYTES % 33.9 % (18.0-39.1); MEAN CORPUSCULAR HEMOGLOBIN 26.8 pg (28-32); MEAN CORPUSCULAR HGB CONC 32.3 g/dL (31-35); MONOCYTES # (AUTO) 0.9 (0.2-0.8); MONOCYTES % 11.5 % (4.4-11.3); NEUTROPHILS % 52.4 % (38.7-80.0); PLATELET COUNT 412 x10e3/uL (140-360); RED BLOOD COUNT 4.36 x10e6/uL (3.6-5.1); RED CELL DISTRIBUTION WIDTH 16.3 % (11.7-14.4)
[2022-10-29 12:57] LABS: ALBUMIN 4.4 g/dL (3.5-5.0); ALBUMIN/GLOBULIN RATIO 1.2 (0.8-2.0); ANION GAP 16.8 mmol/L (8-16); CALCIUM 9.7 mg/dL (8.4-10.2); CREATININE, SERUM 1.03 mg/dL (0.57-1.11); MAGNESIUM 1.7 MG/DL (1.3-2.1); POTASSIUM 3.8 mmol/L (3.5-5.1)
[2022-10-29 13:13] LABS: CLARITY,URINE CLEAR (CLEAR); COLOR,URINE YELLOW (YELLOW); KETONES,URINE NEGATIVE (NEGATIVE); LEUKOCYTE ESTERASE ,URINE MODERATE (NEGATIVE); NITRITE,URINE NEGATIVE (NEGATIVE); PROTEIN,URINE DIPSTICK NEGATIVE (NEGATIVE)
[2022-10-29 13:14] LABS: URINE UROBILINOGEN 0.2 mg/dL (0.2 - 1)
[2022-10-29 13:17] LABS: BACTERIA,URINE FEW /HPF; EPITHELIAL CELLS,URINE MANY /LPF; RBC,URINE 0-5 /HPF (0-5)
[2022-10-29] MEDS ORDERED: ONDANSETRON ODT4 MG PO (14:00)
[2022-10-29] MEDS ORDERED: CEFDINIR300 MG PO (14:00)
== END 2022-10-29 15:56 | disposition home or self-care (01) ==
LOC: EDBD 12:11 → ER 12:23
DX: R11.0 Nausea (principal); N39.0 Urinary tract infection, site not specified; R19.7 Diarrhea, unspecified; I10 Essential (primary) hypertension; B19.20 Unspecified viral hepatitis C without hepatic coma; G40.909 Epilepsy, unspecified, not intractable, without status epilepticus; F41.9 Anxiety disorder, unspecified; R94.31 Abnormal electrocardiogram [ECG] [EKG]; Z86.73 Personal history of transient ischemic attack (TIA), and cerebral infarction without residual deficits
CPT/HCPCS: 36415; 71045; 80053; 81001; 83735; 84484; 85025; 87086; 93005; 99284; J0696; J2405; J7030

== ENCOUNTER → 2022-12-15 | Day surgery (SDC) | payer MEDICARE ==
[2022-12-02 13:49] LABS: BASOPHILS % 0.5 % (0.0-1.0); EOSINOPHILS # (AUTO) 0.1 (0.0-0.4); EOSINOPHILS % 0.6 % (0.0-6.0); HEMATOCRIT 38.9 % (34.2-44.1); HEMOGLOBIN 11.6 g/dL (12.0-16.0); LYMPHOCYTES # (AUTO) 2.3 (1.0-3.2); LYMPHOCYTES % 28.8 % (18.0-39.1); MEAN CORPUSCULAR HEMOGLOBIN 25.5 pg (28-32); MEAN CORPUSCULAR HGB CONC 29.8 g/dL (31-35); MEAN CORPUSCULAR VOLUME 85.5 fL (81-99); MONOCYTES # (AUTO) 0.7 (0.2-0.8); MONOCYTES % 9.4 % (4.4-11.3); NEUTROPHILS # (AUTO) 4.8 (2.1-6.9); NEUTROPHILS % 60.3 % (38.7-80.0); PLATELET COUNT 423 x10e3/uL (140-360); RED BLOOD COUNT 4.55 x10e6/uL (3.6-5.1); RED CELL DISTRIBUTION WIDTH 16.4 % (11.7-14.4)
[2022-12-02 14:07] LABS: INR 0.9; PARTIAL THROMBOPLASTIN TIME 28.2 seconds (23.8-35.5); PROTHROMBIN TIME 12.7 seconds (11.9-14.5)
[2022-12-02 14:17] LABS: ALBUMIN 4.2 g/dL (3.5-5.0); ALBUMIN/GLOBULIN RATIO 1.3 (0.8-2.0); ANION GAP 15.5 mmol/L (8-16); CALCIUM 9.3 mg/dL (8.4-10.2); CHOL/HDL RATIO 2.8 (3.0-3.6); CREATININE, SERUM 0.98 mg/dL (0.57-1.11); POTASSIUM 4.5 mmol/L (3.5-5.1)
[~2022-12-15] VITALS: Ht 152.4 cm; Wt 57.6 kg
[2022-12-15] VITALS (14 sets, daily range): BP systolic 111–164; BP diastolic 44–98; PULSE 76–94; RESP 14–23; TEMP 96.8–97.6; O2SAT 93–100
[~2022-12-15] MED LIST changes: +ACETAMINOPHEN 325 MG TAB ONE; +ADENOSINE 3MG/1ML 30ML VIAL ONE; +ALPRAZOLAM 0.5 MG TAB ONE; +ASPIRIN 325 MG TAB ONE; +CEFDINIR300 MG PO; +CLOPIDOGREL BISULFATE 75 MG TAB ONE; +DIPHENHYDRAMINE HCL 25 MG CAP ONE; +FENTANYL CITRATE/PF 100MCG/2 ML INJ ONE; +HEPARIN SOD/SOD CHLORIDE 2,000 ML ONE; +IOPAMIDOL 370 MG/ML 100 ML INFUS..BTL INJ ONE; +LIDOCAINE HCL 2% LOCAL 20 ML VIAL ONE; +MIDAZOLAM HCL 2 MG/2 ML VIAL ONE; +NITROGLYCERIN/D5W 200 MCG/ML 250 ML ONE; +SODIUM CHLORIDE 0.9% 1000ML 1,000 ML ONE; +VERAPAMIL HCL 2.5 MG/ML 2 ML VIAL ONE
== END | disposition home or self-care (01) ==
LOC: CATH LAB 11:28
PROVIDERS: ATTEND Internal Medicine Cardiovascular Disease
DX: I25.118 Atherosclerotic heart disease of native coronary artery with other forms of angina pectoris (principal); R94.39 Abnormal result of other cardiovascular function study; I10 Essential (primary) hypertension; I73.9 Peripheral vascular disease, unspecified; R00.0 Tachycardia, unspecified; I65.23 Occlusion and stenosis of bilateral carotid arteries; E78.5 Hyperlipidemia, unspecified; Z88.6 Allergy status to analgesic agent; Z88.1 Allergy status to other antibiotic agents; Z88.0 Allergy status to penicillin; Z01.812 Encounter for preprocedural laboratory examination; Z79.02 Long term (current) use of antithrombotics/antiplatelets; Z79.899 Other long term (current) drug therapy; Z86.73 Personal history of transient ischemic attack (TIA), and cerebral infarction without residual deficits; Z82.49 Family history of ischemic heart disease and other diseases of the circulatory system
CPT/HCPCS: 92978; 93458; C9600; 36415; 80053; 80061; 85025; 85610; 85730; 92928; 99152; 99153; C1725; C1753; C1874; C1887; J0153; J2001; J2250; J7030; Q9967

== ENCOUNTER 2022-12-21 12:14 | Emergency (ER) | payer MEDICARE ==
[~2022-12-21] VITALS: Ht 153.7 cm; Wt 57.6 kg
[~2022-12-21 12:14] MED LIST changes: -ACETAMINOPHEN 325 MG TAB ONE; -ADENOSINE 3MG/1ML 30ML VIAL ONE; -ALPRAZOLAM 0.5 MG TAB ONE; -ASPIRIN 325 MG TAB ONE; -CLOPIDOGREL BISULFATE 75 MG TAB ONE; -DIPHENHYDRAMINE HCL 25 MG CAP ONE; -FENTANYL CITRATE/PF 100MCG/2 ML INJ ONE; -HEPARIN SOD/SOD CHLORIDE 2,000 ML ONE; -IOPAMIDOL 370 MG/ML 100 ML INFUS..BTL INJ ONE; -LIDOCAINE HCL 2% LOCAL 20 ML VIAL ONE; -MIDAZOLAM HCL 2 MG/2 ML VIAL ONE; -NITROGLYCERIN/D5W 200 MCG/ML 250 ML ONE; -SODIUM CHLORIDE 0.9% 1000ML 1,000 ML ONE; -VERAPAMIL HCL 2.5 MG/ML 2 ML VIAL ONE
[2022-12-21 13:12] LABS: BASOPHILS % 0.4 % (0.0-1.0); EOSINOPHILS % 0.1 % (0.0-6.0); HEMATOCRIT 34.5 % (34.2-44.1); HEMOGLOBIN 11.4 g/dL (12.0-16.0); LYMPHOCYTES # (AUTO) 1.7 (1.0-3.2); LYMPHOCYTES % 21.9 % (18.0-39.1); MEAN CORPUSCULAR HEMOGLOBIN 26.8 pg (28-32); MONOCYTES # (AUTO) 1.1 (0.2-0.8); MONOCYTES % 13.9 % (4.4-11.3); NEUTROPHILS # (AUTO) 4.9 (2.1-6.9); NEUTROPHILS % 63.4 % (38.7-80.0); PLATELET COUNT 422 x10e3/uL (140-360); RED BLOOD COUNT 4.26 x10e6/uL (3.6-5.1); RED CELL DISTRIBUTION WIDTH 15.3 % (11.7-14.4)
[2022-12-21 13:29] LABS: INR 0.92; PROTHROMBIN TIME 12.9 seconds (11.9-14.5)
[2022-12-21 13:30] LABS: PARTIAL THROMBOPLASTIN TIME 28.2 seconds (23.8-35.5)
[2022-12-21 13:37] LABS: ALBUMIN 4.1 g/dL (3.5-5.0); ALBUMIN/GLOBULIN RATIO 1.1 (0.8-2.0); ANION GAP 14.1 mmol/L (8-16); CALCIUM 9.4 mg/dL (8.4-10.2); CREATININE, SERUM 0.97 mg/dL (0.57-1.11); POTASSIUM 4.1 mmol/L (3.5-5.1)
[2022-12-21] MEDS ORDERED: SODIUM CHLORIDE 0.9% 1000ML 1,000 ML IV STA (14:31)
[2022-12-21 15:30] VITALS: O2SAT 99
== END 2022-12-21 15:45 | disposition home or self-care (01) ==
LOC: ER 12:19
DX: R42 Dizziness and giddiness (principal); E87.1 Hypo-osmolality and hyponatremia; R19.7 Diarrhea, unspecified; I10 Essential (primary) hypertension; F41.9 Anxiety disorder, unspecified; B19.20 Unspecified viral hepatitis C without hepatic coma; I73.9 Peripheral vascular disease, unspecified; Z86.73 Personal history of transient ischemic attack (TIA), and cerebral infarction without residual deficits; R94.31 Abnormal electrocardiogram [ECG] [EKG]
CPT/HCPCS: 36415; 71046; 80053; 82550; 83880; 84484; 85025; 85610; 85730; 93005; 99284; J7030

== ENCOUNTER 2024-03-14 14:20 | Emergency (ER) | payer MEDICARE ==
[~2024-03-14] VITALS: Ht 152.4 cm; Wt 55.8 kg
[2024-03-14 15:35] VITALS: TEMP 98.8
[2024-03-14 15:56] LABS: BASOPHILS % 0.4 % (0.0-1.0); EOSINOPHILS # (AUTO) 0.1 (0.0-0.4); EOSINOPHILS % 0.4 % (0.0-6.0); HEMATOCRIT 41.2 % (34.2-44.1); HEMOGLOBIN 13.4 g/dL (12.0-16.0); LYMPHOCYTES % 26.6 % (18.0-39.1); MEAN CORPUSCULAR HEMOGLOBIN 31.6 pg (28-32); MEAN CORPUSCULAR HGB CONC 32.5 g/dL (31-35); MEAN CORPUSCULAR VOLUME 97.2 fL (81-99); MONOCYTES # (AUTO) 1.3 (0.2-0.8); MONOCYTES % 11.1 % (4.4-11.3); NEUTROPHILS % 61.1 % (38.7-80.0); PLATELET COUNT 331 x10e3/uL (140-360); RED BLOOD COUNT 4.24 x10e6/uL (3.6-5.1); RED CELL DISTRIBUTION WIDTH 13.6 % (11.7-14.4); WHITE BLOOD COUNT 11.38 x10e3/uL (4.8-10.8)
[2024-03-14 16:08] LABS: ALANINE AMINOTRANSFERASE 15 IU/L (0-55); ALBUMIN 4.5 g/dL (3.5-5.0); ALBUMIN/GLOBULIN RATIO 1.3 (0.8-2.0); ALKALINE PHOSPHATASE 89 IU/L (40-150); ANION GAP 15.1 mmol/L (8-16); BILIRUBIN,TOTAL 0.5 mg/dL (0.2-1.2); BLOOD UREA NITROGEN < 5 mg/dL (7-26); CALCIUM 9.9 mg/dL (8.4-10.2); CARBON DIOXIDE 22 mmol/L (22-29); CHLORIDE 99 mmol/L (98-107); CREATININE, SERUM 1.09 mg/dL (0.57-1.11); EST GLOMERULAR FILTRATION RATE 51 ML/MIN (>=60); GLUCOSE 101 mg/dL (74-118); POTASSIUM 4.1 mmol/L (3.5-5.1); SODIUM 132 mmol/L (136-145)
[2024-03-14 16:09] LABS: BUN/CREATININE RATIO 5 (6-25)
[2024-03-14] MEDS ORDERED: IOPAMIDOL 370 MG/ML 100 ML INFUS..BTL INJ ONE (18:54)
[2024-03-14] MEDS: CLONIDINE HCL 0.1 MG TAB PO ONE (19:55)
[2024-03-14] MEDS: KETOROLAC TROMETHAMINE 30 MG/ML VIAL IV STA (20:38)
[2024-03-14 20:40] VITALS: PULSE 71; RESP 16
[2024-03-14 20:56] LABS: BILIRUBIN,URINE NEGATIVE (NEGATIVE); CLARITY,URINE CLEAR (CLEAR); COLOR,URINE YELLOW (YELLOW); GLUCOSE, URINE NEGATIVE (NEGATIVE); KETONES,URINE NEGATIVE (NEGATIVE); LEUKOCYTE ESTERASE ,URINE TRACE (NEGATIVE); NITRITE,URINE NEGATIVE (NEGATIVE); PH,URINE 6.5 (5 - 7); PROTEIN,URINE DIPSTICK NEGATIVE (NEGATIVE); URINE UROBILINOGEN 0.2 mg/dL (0.2 - 1)
[2024-03-14 21:13] LABS: BACTERIA,URINE FEW /HPF; EPITHELIAL CELLS,URINE FEW /LPF; WBC,URINE (MAN) 0-5 /HPF (0-5)
[2024-03-14] MEDS ORDERED: NAPROXEN250 MG PO (21:38)
[2024-03-14 22:09] VITALS: BP 145/73; PULSE 72; RESP 16; O2SAT 100
== END 2024-03-14 22:03 | disposition home or self-care (01) ==
LOC: ER 18:03
DX: M54.50 Low back pain, unspecified (principal); I10 Essential (primary) hypertension; I25.10 Atherosclerotic heart disease of native coronary artery without angina pectoris; B19.20 Unspecified viral hepatitis C without hepatic coma; F41.9 Anxiety disorder, unspecified; Z11.52 Encounter for screening for COVID-19; R94.31 Abnormal electrocardiogram [ECG] [EKG]; Z86.73 Personal history of transient ischemic attack (TIA), and cerebral infarction without residual deficits
CPT/HCPCS: 36415; 71045; 74177; 80053; 81001; 85025; 87400; 93005; 99284; J1885; Q9967; U0002

== ENCOUNTER → 2025-01-30 | Outpatient (REF) | payer MEDICARE ==
[~2025-01-30] MED LIST changes: +NAPROXEN250 MG PO
== END ==
LOC: MAMMO 09:49
PROVIDERS: ATTEND Internal Medicine
DX: Z12.31 Encounter for screening mammogram for malignant neoplasm of breast (principal)
CPT/HCPCS: 77067

== ENCOUNTER 2025-04-20 08:46 | Emergency (ER) | payer MEDICARE ==
[~2025-04-20] VITALS: Ht 152.4 cm; Wt 56.2 kg
[2025-04-20 09:11] VITALS: PULSE 95; RESP 17; TEMP 98
[2025-04-20 10:13] VITALS: BP 174/97; O2SAT 100
== END 2025-04-20 09:40 | disposition home or self-care (01) ==
LOC: ER 09:08
DX: G47.00 Insomnia, unspecified (principal); R68.83 Chills (without fever); I73.9 Peripheral vascular disease, unspecified; I10 Essential (primary) hypertension; I25.10 Atherosclerotic heart disease of native coronary artery without angina pectoris; K76.9 Liver disease, unspecified; F41.9 Anxiety disorder, unspecified; Z86.73 Personal history of transient ischemic attack (TIA), and cerebral infarction without residual deficits
CPT/HCPCS: 99282